=== PATIENT | male | born 1970 | race Caucasian/White ===

== ENCOUNTER 2025-08-22 20:55 | Inpatient (IN) | payer OTHER, SELFPAY ==
--- OUTSIDE RECORDS SUMMARY | 2024-05-20 10:00 | XMS_ITS ---
Author Organization [facility] Address [address] [place] [id number] Care Team Providers Care Mba Intern Name Role Phone Cindy NOGUERA, Jose Primary Care Provider Juan Moody Unavailable [phone] Madhav Shankar Unavailable [phone] REASON FOR VISIT booked in error Encounters Encounter Location Date Provider Diagnosis [address] [address] 05/20/2024 Madhav Shankar Plan Of Treatment No Information Progress Notes * Ryne DUNCANDOB: 0 (54 yo M)Acc No.[id number]:05/20/2024 Progress Note Patient: Ryne RANGEL Provider: Alisha Shankar DPM :1970 A ge:53 Y S ex:Male Date:05/20/2024 Address:[address] [place], [place] [id number] Pcp:Jose White MD Subjective: * Chief Complaints: * 1 . Booked in error. * Medical History: Objective: * Vitals: Assessment: Plan: * Treatment: * Images: * The named appointment provid er may or may not be the originator of this progress note, and it is not deemed complete until electronically signed by the appointment provider. Sign off status: Pending * Provider: Alisha Shankar DPM Date: 0 05/20/2024 Generated for Shiva veloz/Barbara/eTransmitting on: 1 10:45 PM EDT
[2025-08-22] VITALS (14 sets, daily range): BP systolic 117–154; BP diastolic 44–67; PULSE 83–94; RESP 16–91; TEMP 37.8; O2SAT 89–99; BMI 19.5
--- NOTE | 2025-08-22 | ECG_ITS ---
Test Reason : shortness of breath Blood Pressure : */* mmHG Vent. Rate : 87 BPM Atrial Rate : 87 BPM P-R Int : 184 ms QRS Dur : 108 ms QT Int : 390 ms P-R-T Axes : 58 -33 126 degrees QTcB Int : 469 ms Sinus rhythm with frequent Premature ventricular complexes Left axis deviation Left ventricular hypertrophy ( Alexys product , Romhilt-Medina ) ST & T wave abnormality, consider lateral ischemia Abnormal ECG No previous ECGs available Referred By: Generic ED Physician Electronically Signed By: CARLOS A GRESHAM MD
--- NOTE | ~2025-08-22 | XR_ITS ---
CLINICAL HISTORY: shortness of breath 1 view chest x-ray Comparison: None provided Findings: The lungs are clear. Normal size heart. No acute fracture. Post sternotomy changes. IMPRESSION: 1. No acute findings. This document has been electronically signed by: Hilton Fonseca MD, PHD on 08/22/2025 23:43:12
--- NOTE | ~2025-08-22 | CT_ITS ---
CLINICAL HISTORY: hypoxic, possible aspiration CT chest without contrast Comparison: None provided Findings: Mild respiratory motion artifact degrades some of the provided images. Atherosclerotic vascular calcifications are present. Heart is mildly enlarged. The visualized thyroid and mediastinum are unremarkable. Pulmonary consolidation or infiltrates are present in the lung bases, [id number]. The visualized upper abdomen is unremarkable. The bones are intact. IMPRESSION: Possible aspiration with basilar pulmonary consolidations or infiltrates, [id number]-right. This document has been electronically signed by: Hilton Fonseca MD, PHD on 08/23/2025 04:51:53
--- NOTE | ~2025-08-22 | CT_ITS ---
CLINICAL HISTORY: possible abd pain? non-verbal CT abdomen and pelvis without contrast Comparison: None provided Findings: Basilar areas of pulmonary consolidation or infiltrate are present, [id number]-right. The heart is mildly enlarged. No focal hepatic lesion. Gallbladder is unremarkable. Pancreas and spleen are within normal limits. The adrenal glands are unremarkable. Moderate right and mild left hydronephrosis are present. Small nonobstructing renal calculi are present bilaterally. No bowel obstruction, pneumoperitoneum, or pneumatosis. Atherosclerotic vascular calcifications are present. Fat stranding or inflammatory changes are noted in the right lower quadrant. Visualized appendix is normal. Urinary bladder wall is thickened and there is adjacent fat stranding or inflammatory change. There is gas within the nondependent urinary bladder. No acute fracture. IMPRESSION: 1. Moderate right and mild left hydronephrosis with urinary bladder wall thickening, possible cystitis. Gas within the nondependent urinary bladder can be seen in the setting of recent prior instrumentation/catheterization or gas-forming infection. 2. Fat stranding or inflammatory changes in the right lower quadrant, possible focal colitis or inflammatory bowel disease. 3. Dependent pulmonary consolidations or infiltrates, [id number]-right. This document has been electronically signed by: Hilton Fonseca MD, PHD on 08/23/2025 04:45:11
--- NOTE | 2025-08-22 21:34 | ED_ITS ---
HPI - SOB/Dyspnea General Chief Complaint: Dyspnea Stated Complaint: Failure to thrive on NRB bp 128/66 Time Seen by Provider: 08/22/25 21:20 Source: EMS Mode of arrival: EMS Limitations: altered mental status History of Present Illness ED Provider: Dr. Nimo Clark HPI Narrative: Patient comes to the emergency room from [facility]. According to EMS, the staff reported that patient has been more lethargic than usual, patient is saturating in the low 80s which is new for the patient. Patient is not oxygen dependent. EMS reports that the staff said that the patient has been lethargic and has not been taking any of his medications. Patient wakes up to sternal rub, mumbles and goes back to sleep. Unable to give any significant history. It is unclear what patient's mental status baseline is Related Data Allergies Allergy/AdvReac Type Severity Reaction Status Date / Time No Known Allergies Allergy Verified 08/22/25 21:11 Review of Systems 2 Review of Systems: Yes Unobtainable due to mental condition and Unobtainable due to mental status PMFSH Past Medical History Medical History Heart failure Cognitive communication deficit Hx of emt intermediate use of blood thinners Atrial fibrillation H/O: HTN (hypertension) CKD (chronic kidney disease) Wernicke encephalopathy Alcohol abuse Diabetes mellitus type 2 in nonobese Surgical History (Updated 08/22/25 @ 21:43 by Nimo Clark MD) History of heart bypass surgery Social History Social History Unable to assess alcohol history related to: Unable to respond Smoked in Last 30 Days: No Use of substances other than those prescribed or required for medical reasons: No Advance Directives: Yes Advance Directives on File: Yes Advance Directives Date on File: 08/22/25 Do you have a plan to hurt others: No Plan Physical Exam 2 Exam: Exam: Appearance: Patient is very somnolent, arousable to sternal rub, moans and goes back to sleep Eyes: Pupils equal, round and reactive to light. ENT: Very dry oral mucous, foot stuck in dry oral mucosa and redman Neck: Normal inspection. Neck supple. No lymph nodes noted. No crepitus CVS: Normal heart rate and rhythm. Pulses normal. Normal S1 and S2 Respiratory: No respiratory distress. Breath sounds normal. No Wheezing. No rales Abdomen: Soft and nontender. No rigidity. No distention. Skin: Skin warm and dry. Pale skin color. Normal skin turgor. Extremities: No lower extremity edema. No Lacerations. No Rash Neuro: Unable to participating cranial nerve assessment Psych: calm Vital Signs: Vital Signs: Last Vital Signs Temp 100.1 F 08/22/25 21:02 Pulse 89 08/23/25 02:20 Resp 19 08/23/25 02:20 BP 140/61 H 08/23/25 02:20 Pulse Ox 94 08/23/25 02:20 O2 Del Method Nasal Cannula 08/23/25 02:20 O2 Flow Rate 4 08/23/25 02:20 Oxygen Flow Rate 10 08/22/25 21:02 BMI result Body Mass Index 19.5 Course Course Course Narrative: Patient low sick, fragile, clammy. So far, patient's blood pressure is in the 120s over 53, heart rate 83, oxygen saturation is 99% on a non-rebreather. According to EMS, patient's oxygen saturation was in the low 80s when they picked him up. Patient has foot stuck to his oral mucosa and beers, it is possible the patient may have aspirated Patient is empirically being treated with IV fluids and antibiotics. All of patient's labs and imaging pending Medications Administered Discontinued Medications Generic Name Dose Route Start Last Admin Trade Name Óscarq PRN Reason Stop Dose Admin Albuterol Sulfate 10 mg 08/22/25 22:32 08/22/25 22:50 Albuterol Sulfate (0.083%) 2.5 Mg/3 Ml Vial.Neb INHALE 08/22/25 22:33 10 mg ONCE ONE Administration Dextrose 25 gm 08/22/25 22:32 08/22/25 23:13 Dextrose 50 % 25 Gm/50 Ml Syringe IVPUSH 08/22/25 22:33 25 gm ONCE ONE Administration Sodium Chloride 1,600 mls @ 999 mls/hr 08/22/25 21:35 08/23/25 01:31 Ns IVCONT 08/22/25 23:11 Infused .Q1H37M ONE Infusion Ceftriaxone Sodium 1 gm/ 50 mls @ 100 mls/hr 08/22/25 21:35 08/22/25 22:53 Sodium Chloride IV 08/22/25 22:04 Infused ONCE ONE Infusion Azithromycin 500 mg/ Sodium 250 mls @ 125 mls/hr 08/22/25 21:35 08/23/25 01:31 Chloride IV 08/22/25 23:34 Infused ONCE ONE Infusion Calcium Gluconate 2 gm in 100 mls @ 50 mls/hr 08/22/25 22:32 08/23/25 01:31 Calcium Gluconate IV 08/23/25 00:31 Infused ONCE ONE Infusion Insulin Human Regular 10 unit 08/22/25 22:32 08/22/25 23:12 Insulin Regular, Human 100 Unit/Ml 10 Ml Vial IVPUSH 08/22/25 22:33 10 unit ONCE ONE Administration Sodium Bicarbonate 50 meq 08/22/25 22:32 08/22/25 23:13 Sodium Bicarbonate 8.4% 50 Meq/50 Ml Syringe IVPUSH 08/22/25 22:33 50 meq ONCE ONE Administration Medical Decision Making Medical Decision Making [facility] Narrative: My interpretation of labs: Patient's white blood cell count 12.7, hemoglobin 10.8, hematocrit 34.2, platelets 435 blood gases did not show any significant acute abnormality. Chemistry: Potassium 6.3, creatinine 4.44 patient has history of chronic kidney disease, no previous labs for previous comparison. Patient's lactic acid 3.1, normal magnesium. Normal LFTs. Patient's troponin 56.4 On arrival, patient received IV fluids. Before we got the labs back, patient had already received the above-mentioned fluids, now we know that patient's pro BNP is 7730. Patient does not seem to be fluid overloaded, no lower extremity edema, no edema chest x-ray. My interpretation of EKG: Sinus rhythm, heart rate 87, patient's seems to have peaked T-waves, frequent PVCs, QTC 469 Fully hyperkalemia, patient receiving albuterol neb treatment, calcium gluconate, dextrose D50, insulin 10 units, bicarb Chest x-ray does not show any acute abnormality. After all the above-mentioned medications and IV fluids, patient is now awake, alert. Patient still has oxygen desaturations. CT scan of the chest and abdomen pending. Patient's creatinine is too elevated for a CTA to rule out pulmonary embolism. Patient may need a V/Q scan tomorrow At this time, 01:50, patient's 2nd set of labs shows a lactic acid of 4.0. At this time, sepsis is suspected. Patient already received IV fluids and antibiotics. CT scans pending Potassium improved to 5.0 At this time, 01:55, the patient's nurse was able to obtain urine. Seems to be foul smelling. Patient likely also has a UTI. Urinalysis pending. Patient already received as mentioned above IV fluids and appropriate antibiotics. At 02:36 it was confirmed the patient does have a UTI causing sepsis CT scans of chest abdomen and pelvis pending CT scan of the abdomen shows cystitis and bilateral pneumonia. I discussed the patient with Dr. So, patient being admitted Differential Diagnosis Differential Diagnoses: The differential diagnosis associated with the presentation includes Admission/Observation Consideration of admission/observation: Escalation of care including admission/observation considered Lab Data MDM Lab Attestation statement: I reviewed the patient's lab results. 08/22/25 21:48 08/23/25 00:16 Labs: Lab Results 08/22/25 08/22/25 08/22/25 Range/Units 21:47 21:48 21:49 WBC 12.7 H (4.8-10.8) X10*3/uL RBC 3.78 L (4.60-5.80) X10*6/uL Hgb 10.8 L (14.0-18.0) g/dl Hct 34.2 L (42.0-52.0) % MCV 90.5 (80.0-98.0) fL MCH 28.6 (27.0-33.0) pg MCHC 31.6 (31.0-36.0) g/dl RDW 15.5 (11.0-16.0) % Plt Count 435 H (160-400) X10*3/uL MPV 10.1 (9.4-12.4) fL Immature Gran % (Auto) Cancelled Neut % (Auto) Cancelled Lymph % (Auto) Cancelled [place] % (Auto) Cancelled Eos % (Auto) Cancelled Baso % (Auto) Cancelled Lymph # (Auto) Cancelled [place] # (Auto) Cancelled Eos # (Auto) Cancelled Baso # (Auto) Cancelled Abs Immat Gran (auto) Cancelled Absolute Neuts (auto) Cancelled Absolute Nucleated RBC 0.000 (0.0-0.012) X10*3/uL Nucleated RBC % (auto) 0.0 (0.0-0.2) /100WBC Neutrophils % (Manual) 36 L (45-73) % Band Neutrophils % 33 H (3-5) % Lymphocytes % (Manual) 18 L (20-40) % Atypical Lymphs % (Man) 3 (0-6) % Monocytes % (Manual) 5 (2-11) % Metamyelocytes % 5 % Abs Neuts (Manual) 8.8 H (2.0-8.3) X10*3/uL Lymphocytes # (Manual) 2.3 (1.2-4.9) X10*3/uL Atyp Lymphs # (Manual) 0.4 x10*3/uL Monocytes # (Manual) 0.6 (0.1-1.2) X10*3/uL Metamyelocytes # 0.6 X10*3/uL Toxic Vacuolation PRESENT Platelet Estimate NORMAL (NORMAL) Large Platelets PRESENT Plt Morphology Comment NOTED RBC Morphology NOTED [place] Cells 1+ (0-2) /OIF VBG pH 7.34 (7.32-7.43) VBG pCO2 37 mmHg VBG pO2 41 mmHg VBG HCO3 20 L (22-26) mmol/L VBG O2 Saturation 54.0 % VBG Base Excess -4.1 mmol/L Sodium 140 (135-145) mmol/L Potassium 6.3 H* (3.3-5.1) mmol/L Chloride 108 (96-108) mmol/L Carbon Dioxide 18 L (22-29) mmol/L Anion Gap 20 (12-20) BUN 72 H (9-16) mg/dL Creatinine 4.44 H* (0.5-1.4) mg/dL Estim Creat Clear Calc 14.3 Estimated GFR 14 Random Glucose 185 H (60-115) mg/dL Lactic Acid 3.1 H* (0.5-2.0) mmol/L Lactic Acid F/U @ 2Hr (0.5-2.0) mmol/L Lactic Acid F/U @ 4Hr (0.5-2.0) mmol/L Calcium 9.1 (8.4-10.2) mg/dL Magnesium 2.3 (1.6-2.6) mg/dL Total Bilirubin 0.2 (0.0-1.0) mg/dL Direct Bilirubin < 0.2 (0.0-0.5) mg/dL AST 31 (5-37) U/L ALT 7 (0-40) U/L Alkaline Phosphatase 94 (39-117) U/L Troponin I High Sens 73.6 H (<3.5-35.0) ng/L NT-Pro-B Natriuret Pep (<300) pg/mL Total Protein 7.3 (6.5-8.0) g/dL Albumin 2.7 L (3.5-5.0) g/dL TSH 1.18 (0.32-4.0) uIU/mL Urine Color Urine Appearance Urine pH (5.0-9.0) Ur Specific [place] (1.005-1.025) Urine Protein (Neg-Trace) mg/dL Urine Glucose (UA) (Negative) mg/dL Urine Ketones (Negative) mg/dL Urine Blood (Negative) Urine Nitrite (Negative) Ur Leukocyte Esterase (Negative) Urine RBC (0-2) /HPF Urine WBC (0-5) /HPF Ur Squamous Epith Cells (0-2) /HPF Urine Bacteria (None Seen) Hyaline Casts (0-2) /LPF Influenza Type A (PCR) NEGATIVE (Negative) Influenza Type B (PCR) NEGATIVE (Negative) RSV RNA Qual (PCR) NEGATIVE (Negative) SARS-CoV-2 RNA (RT-PCR) NEGATIVE (Negative) 08/22/25 08/23/25 08/23/25 Range/Units 23:28 00:16 01:20 WBC (4.8-10.8) X10*3/uL RBC (4.60-5.80) X10*6/uL Hgb (14.0-18.0) g/dl Hct (42.0-52.0) % MCV (80.0-98.0) fL MCH (27.0-33.0) pg MCHC (31.0-36.0) g/dl RDW (11.0-16.0) % Plt Count (160-400) X10*3/uL MPV (9.4-12.4) fL Immature Gran % (Auto) Neut % (Auto) Lymph % (Auto) [place] % (Auto) Eos % (Auto) Baso % (Auto) Lymph # (Auto) [place] # (Auto) Eos # (Auto) Baso # (Auto) Abs Immat Gran (auto) Absolute Neuts (auto) Absolute Nucleated RBC (0.0-0.012) X10*3/uL Nucleated RBC % (auto) (0.0-0.2) /100WBC Neutrophils % (Manual) (45-73) % Band Neutrophils % (3-5) % Lymphocytes % (Manual) (20-40) % Atypical Lymphs % (Man) (0-6) % Monocytes % (Manual) (2-11) % Metamyelocytes % % Abs Neuts (Manual) (2.0-8.3) X10*3/uL Lymphocytes # (Manual) (1.2-4.9) X10*3/uL Atyp Lymphs # (Manual) x10*3/uL Monocytes # (Manual) (0.1-1.2) X10*3/uL Metamyelocytes # X10*3/uL Toxic Vacuolation Platelet Estimate (NORMAL) Large Platelets Plt Morphology Comment RBC Morphology [place] Cells /OIF VBG pH (7.32-7.43) VBG pCO2 mmHg VBG pO2 mmHg VBG HCO3 (22-26) mmol/L VBG O2 Saturation % VBG Base Excess mmol/L Sodium 144 (135-145) mmol/L Potassium 5.0 D (3.3-5.1) mmol/L Chloride 113 H (96-108) mmol/L Carbon Dioxide 16 L (22-29) mmol/L Anion Gap 20 (12-20) BUN 72 H (9-16) mg/dL Creatinine 4.22 H* (0.5-1.4) mg/dL Estim Creat Clear Calc 15.0 Estimated GFR 15 Random Glucose 221 H (60-115) mg/dL Lactic Acid (0.5-2.0) mmol/L Lactic Acid F/U @ 2Hr 4.0 H* (0.5-2.0) mmol/L Lactic Acid F/U @ 4Hr (0.5-2.0) mmol/L Calcium 8.4 D (8.4-10.2) mg/dL Magnesium (1.6-2.6) mg/dL Total Bilirubin (0.0-1.0) mg/dL Direct Bilirubin (0.0-0.5) mg/dL AST (5-37) U/L ALT (0-40) U/L Alkaline Phosphatase (39-117) U/L Troponin I High Sens 56.4 H (<3.5-35.0) ng/L NT-Pro-B Natriuret Pep 7730.7 H (<300) pg/mL Total Protein (6.5-8.0) g/dL Albumin (3.5-5.0) g/dL TSH (0.32-4.0) uIU/mL Urine Color Urine Appearance Urine pH (5.0-9.0) Ur Specific [place] (1.005-1.025) Urine Protein (Neg-Trace) mg/dL Urine Glucose (UA) (Negative) mg/dL Urine Ketones (Negative) mg/dL Urine Blood (Negative) Urine Nitrite (Negative) Ur Leukocyte Esterase (Negative) Urine RBC (0-2) /HPF Urine WBC (0-5) /HPF Ur Squamous Epith Cells (0-2) /HPF Urine Bacteria (None Seen) Hyaline Casts (0-2) /LPF Influenza Type A (PCR) (Negative) Influenza Type B (PCR) (Negative) RSV RNA Qual (PCR) (Negative) SARS-CoV-2 RNA (RT-PCR) (Negative) 08/23/25 08/23/25 Range/Units 01:43 03:56 WBC (4.8-10.8) X10*3/uL RBC (4.60-5.80) X10*6/uL Hgb (14.0-18.0) g/dl Hct (42.0-52.0) % MCV (80.0-98.0) fL MCH (27.0-33.0) pg MCHC (31.0-36.0) g/dl RDW (11.0-16.0) % Plt Count (160-400) X10*3/uL MPV (9.4-12.4) fL Immature Gran % (Auto) Neut % (Auto) Lymph % (Auto) [place] % (Auto) Eos % (Auto) Baso % (Auto) Lymph # (Auto) [place] # (Auto) Eos # (Auto) Baso # (Auto) Abs Immat Gran (auto) Absolute Neuts (auto) Absolute Nucleated RBC (0.0-0.012) X10*3/uL Nucleated RBC % (auto) (0.0-0.2) /100WBC Neutrophils % (Manual) (45-73) % Band Neutrophils % (3-5) % Lymphocytes % (Manual) (20-40) % Atypical Lymphs % (Man) (0-6) % Monocytes % (Manual) (2-11) % Metamyelocytes % % Abs Neuts (Manual) (2.0-8.3) X10*3/uL Lymphocytes # (Manual) (1.2-4.9) X10*3/uL Atyp Lymphs # (Manual) x10*3/uL Monocytes # (Manual) (0.1-1.2) X10*3/uL Metamyelocytes # X10*3/uL Toxic Vacuolation Platelet Estimate (NORMAL) Large Platelets Plt Morphology Comment RBC Morphology [place] Cells /OIF VBG pH (7.32-7.43) VBG pCO2 mmHg VBG pO2 mmHg VBG HCO3 (22-26) mmol/L VBG O2 Saturation % VBG Base Excess mmol/L Sodium (135-145) mmol/L Potassium (3.3-5.1) mmol/L Chloride (96-108) mmol/L Carbon Dioxide (22-29) mmol/L Anion Gap (12-20) BUN (9-16) mg/dL Creatinine (0.5-1.4) mg/dL Estim Creat Clear Calc Estimated GFR Random Glucose (60-115) mg/dL Lactic Acid (0.5-2.0) mmol/L Lactic Acid F/U @ 2Hr (0.5-2.0) mmol/L Lactic Acid F/U @ 4Hr 1.4 (0.5-2.0) mmol/L Calcium (8.4-10.2) mg/dL Magnesium (1.6-2.6) mg/dL Total Bilirubin (0.0-1.0) mg/dL Direct Bilirubin (0.0-0.5) mg/dL AST (5-37) U/L ALT (0-40) U/L Alkaline Phosphatase (39-117) U/L Troponin I High Sens (<3.5-35.0) ng/L NT-Pro-B Natriuret Pep (<300) pg/mL Total Protein (6.5-8.0) g/dL Albumin (3.5-5.0) g/dL TSH (0.32-4.0) uIU/mL Urine Color Yellow Urine Appearance Turbid Urine pH 8.0 (5.0-9.0) Ur Specific [place] 1.015 (1.005-1.025) Urine Protein 300 (3+) H (Neg-Trace) mg/dL Urine Glucose (UA) Negative (Negative) mg/dL Urine Ketones Negative (Negative) mg/dL Urine Blood Large (3+) H (Negative) Urine Nitrite Positive H (Negative) Ur Leukocyte Esterase Moderate (2+) H (Negative) Urine RBC 3-5 H (0-2) /HPF Urine WBC >50 H (0-5) /HPF Ur Squamous Epith Cells 3-5 (0-2) /HPF Urine Bacteria 4+ (None Seen) Hyaline Casts 0-2 (0-2) /LPF Influenza Type A (PCR) (Negative) Influenza Type B (PCR) (Negative) RSV RNA Qual (PCR) (Negative) SARS-CoV-2 RNA (RT-PCR) (Negative) Independent Interpretation I performed an independent interpretation of an: EKG, Plain X-Ray and CT Scan Radiology Impression Discussion of test interpretation with radiology: I have reviewed the radiologist's reading. Radiologist Impression: The lungs are clear. Normal size heart. No acute fracture. Post sternotomy changes. IMPRESSION: 1. No acute findings. Basilar areas of pulmonary consolidation or infiltrate are present, [id number]. The heart is mildly enlarged. No focal hepatic lesion. Gallbladder is unremarkable. Pancreas and spleen are within normal limits. The adrenal glands are unremarkable. Moderate right and mild left hydronephrosis are present. Small nonobstructing renal calculi are present bilaterally. No bowel obstruction, pneumoperitoneum, or pneumatosis. Atherosclerotic vascular calcifications are present. Fat stranding or inflammatory changes are noted in the right lower quadrant. Visualized appendix is normal. Urinary bladder wall is thickened and there is adjacent fat stranding or inflammatory change. There is gas within the nondependent urinary bladder. No acute fracture. IMPRESSION: 1. Moderate right and mild left hydronephrosis with urinary bladder wall thickening, possible cystitis. Gas within the nondependent urinary bladder can be seen in the setting of recent prior instrumentation/catheterization or gas-forming infection. 2. Fat stranding or inflammatory changes in the right lower quadrant, possible focal colitis or inflammatory bowel disease. 3. Dependent pulmonary consolidations or infiltrates, [id number]-right. Mild respiratory motion artifact degrades some of the provided images. Atherosclerotic vascular calcifications are present. Heart is mildly enlarged. The visualized thyroid and mediastinum are unremarkable. Pulmonary consolidation or infiltrates are present in the lung bases, [id number]-right. The visualized upper abdomen is unremarkable. The bones are intact. IMPRESSION: Possible aspiration with basilar pulmonary consolidations or infiltrates, [id number]-right. Independent Historian Clinical information obtained from an independent historian. History obtained from or confirmed by: EMS Critical Care Time Critical Care Time Critical Care Time: Yes Total Critical Care Time: 75 Attestation: I have personally provided critical care time. Time includes review of lab data, radiology results, discussion with consultants, and monitoring for potential decompensation. Intervention performed as documented. Discharge Plan Discharge Clinical Impression: Hypoxia, Sepsis, Acute UTI, Pneumonia, Acute hyperkalemia, Acute dehydration Patient Disposition: Admitted As Inpatient Print Language: Unable To Collect
[2025-08-22 22:02] LABS: Hematocrit 34.2 % (42.0-52.0); Hemoglobin 10.8 g/dl (14.0-18.0); Mean Corpuscular HGB Conc 31.6 g/dl (31.0-36.0); Mean Corpuscular Hemoglobin 28.6 pg (27.0-33.0); Mean Corpuscular Volume 90.5 fL (80.0-98.0); NRBC Abs Auto 0.000 X10*3/uL (0.0-0.012); NRBC Pct Auto 0.0 /100WBC (0.0-0.2); Platelet Count 435 X10*3/uL (160-400); Red Blood Count 3.78 X10*6/uL (4.60-5.80); White Blood Count 12.7 X10*3/uL (4.8-10.8)
[2025-08-22 22:12] LABS: VBG HCO3 20 mmol/L (22-26); VBG O2 % Saturation 54.0 %
[2025-08-22 22:13] LABS: Venous Blood Gas Refer to POC result
[2025-08-22 22:25] LABS: Troponin-I High Sensitivity 73.6 ng/L (<3.5-35.0)
[2025-08-22 22:30] LABS: Neutrophils Percent Manual 36 % (45-73)
[2025-08-22 22:32] LABS: Alanine Aminotransferase 7 U/L (0-40); Albumin Level 2.7 g/dL (3.5-5.0); Alkaline Phosphatase 94 U/L (39-117); Anion Gap 20 (12-20); Aspartate Amino Transferase 31 U/L (5-37); Atypical Lymph Absolute Manual 0.4 x10*3/uL; Atypical Lymphs Percent Manual 3 % (0-6); Band Neutrophils Percent 33 % (3-5); Blood Urea Nitrogen 72 mg/dL (9-16); Calcium 9.1 mg/dL (8.4-10.2); Carbon Dioxide 18 mmol/L (22-29); Chloride 108 mmol/L (96-108); Creatinine Clr Calc Pharmacy 14.3; Estimated Glomerular Filt Rate 14; Lymphocytes Absolute Manual 2.3 X10*3/uL (1.2-4.9); Lymphocytes Percent Manual 18 % (20-40); Magnesium 2.3 mg/dL (1.6-2.6); Metamyelocytes Absolute 0.6 X10*3/uL; Metamyelocytes Percent 5 %; Monocytes Absolute Manual 0.6 X10*3/uL (0.1-1.2); Monocytes Percent Manual 5 % (2-11); Neutrophils Absolute Manual 8.8 X10*3/uL (2.0-8.3); Potassium 6.3 mmol/L (3.3-5.1); RBC Morphology NOTED; Sodium 140 mmol/L (135-145); Total Protein 7.3 g/dL (6.5-8.0)
[2025-08-22 22:33] LABS: Burr Cells 1+ (0-2) /OIF; Large Platelet PRESENT
[2025-08-22 22:34] LABS: Toxic Vacuolation PRESENT
--- OUTSIDE RECORDS SUMMARY | 2025-08-22 22:45 | XMS_ITS | Encounter Summary ---
Author Organization [facility] Address [address] [place] [address] Care Team Providers Care System Designer Name Role Phone Linnea Beth MD Primary Care Provider + Encounter Details Date Type Department Care Team (Late st Contact Info) Description 08/20/2025 Lab Requisition [facility] - Main Lab [address] [facility] [place] [address] Linnea Beth MD [address] [address] Type 2 diabetes mellitus with unspecified complications (CMS/HCC V24, CMS/HCC V28); Unspecified atrial fibrillation (CMS/HCC V24, CMS/HCC V28); Chronic kidney disease, unspecified Social History Tobacco Use Types Packs/Day Years Used Date Smoking Tobacco: Every Day Cigarettes Alcohol Use Standard Drinks/Week Comments Not Asked 0 (1 standard drink = 0.6 oz pur e alcohol) Sex and Gender Information Value Date Recorded Sex Assigned at Not on file Legal Sex Male 4:37 AM EST Gender Identity Not on file Sexual Orientation Not on file documented as of this encounter Plan of Treatment Not on file documented as of this encounter Procedures Procedure Name Priority Date/Time Associated Diagnosis Comments COMPLETE BLOOD COUNT Routine 08/20/2025 7:17 AM EDT Type 2 diabetes mellitus with unspecified complications (CMS/HCC V24, CMS/HCC V28) Unspecified atrial fibrillation (CMS/HCC V24, CMS/HCC V28) Chronic kidney disease, unspecified BASIC METABOLIC PANEL Routine 08/20/2025 7:17 AM EDT Type 2 diabetes mellitus with unspecified complications (CMS/HCC V24, CMS/HCC V28) Unspecified atrial fibrillation (CMS/HCC V24, CMS/HCC V28) Chronic kidney disease, unspecified documented in this encounter Results * (ABNORMAL) Basic metabolic panel (08/20/2025 7:17 AM EDT) Sodium 143 133 - 145 mmol/L LAB CHEMISTRY METHOD 08/20/2025 10:40 AM [facility] Potassium 3.9 3.5 - 5.5 mmol/L LAB CHEMISTRY METHOD 08/20/2025 10:40 AM [facility] Chloride 112(H) 96 - 110 mmol/L LAB CHEMISTRY METHOD 08/20/2025 10:40 AM [facility] CO2 24 21 - 32 mmol/L LAB CHEMISTRY METHOD 08/20/2025 10:40 AM [facility] Anion Gap 7 3 - 11 LAB CHEMISTRY METHOD 08/20/2025 10:40 AM [facility] Glucose 151(H) 70 - 100 mg/dL LAB CHEMISTRY METHOD 08/20/2025 10:40 AM [facility] BUN 27(H) 5 - 25 mg/dL LAB CHEMISTRY METHOD 08/20/2025 10:40 AM [facility] Creatinine 1.17 0.70 - 1.30 mg/dL LAB CHEMISTRY METHOD 08/20/2025 10:40 AM [facility] eGFR 74 >=60 mL/min/1. 73m2 LAB CHEMISTRY METHOD 08/20/2025 10:40 AM [facility] Comment:Calculation based on the Chronic Kidney Disease Epidemiology Collaboration (CKD-EPI) equation refit without adjustment for race. BUN/Creatinine Ratio 23.1 LAB CHEMISTRY METHOD 08/20/2025 10:40 AM [facility] Calcium 8.3(L) 8.5 - 10.5 mg/dL LAB CHEMISTRY METHOD 08/20/2025 10:40 AM [facility] Blood Venous blood specimen / Unknown Venipuncture / Unknown 08/20/2025 7:17 AM EDT 08/20/2025 8:57 AM EDT us Linnea Beth MD LAB BLOOD ORDERABLES Fin al Result [facility] [address] [place] [address], * (ABNORMAL) Complete blood count (08/20/2025 7:17 AM EDT) [facility] WBC 8.3 4.8 - 10.8 K/mcL LAB HEMETOLOGY METHOD 08/20/2025 9:14 AM EDT [facility] RBC 3.10(L) 4.50 - 5.50 M/mcL LAB HEMETOLOGY METHOD 08/20/2025 9:14 AM [facility] Hemoglobin 8.8(L) 13.5 - 17.5 g/dL LAB HEMETOLOGY METHOD 08/20/2025 9:14 AM [facility] Hematocrit 29.0(L) 42.0 - 54.0 % LAB HEMETOLOGY METHOD 08/20/2025 9:14 AM [facility] MCV 92.7 79.0 - 98.0 FL LAB HEMETOLOGY METHOD 08/20/2025 9:14 AM [facility] MCH 28.1 27.0 - 32.0 pcg LAB HEMETOLOGY METHOD 08/20/2025 9:14 AM [facility] MCHC 30.3(L) 32.0 - 37.0 g/dL LAB HEMETOLOGY METHOD 08/20/2025 9:14 AM [facility] RDW 14.9 11.0 - 15.0 % LAB HEMETOLOGY METHOD 08/20/2025 9:14 AM [facility] Platelets 343 130 - 400 K/mcL LAB HEMETOLOGY METHOD 08/20/2025 9:14 AM EDT [facility] MPV 10.3 7.0 - 11.0 FL LAB HEMETOLOGY METHOD 08/20/2025 9:14 AM EDT [facility] NRBC 0.0 <1.0 % LAB HEMETOLOG METHOD 08/20/2025 9:14 AM EDT [facility] NRBC Absolute 0.00 <0.10 K/mcL LAB HEMETOLOGY METHOD 08/20/2025 9:14 AM EDT [facility] Blood Venous blood specimen / Unknown Venipuncture / Unknown 08/20/2025 7:17 AM EDT 08/20/2025 8:57 AM EDT us Linnea Beth MD LAB BLOOD ORDERABLES Fin al Result [facility] [address] [place] [address], documented in this encounter Visit Diagnoses Diagnosis Type 2 diabetes mellitus with unspecified complications (CMS/HCC V24, CMS/HCC V28) Unspecified atrial fibrillation (CMS/HCC V24, CMS/HCC V28) Chronic kidney disease, unspecified documented in this encounter Care Teams System Designer Relationship Specialty Start Date End Date Linnea Beth MD [address] [place] [id number] PCP - General Family Medicine 07/16/25 documented as of this encounter
--- OUTSIDE RECORDS SUMMARY | 2025-08-22 22:45 | XMS_ITS | Clinical Summary ---
Author Organization [address] [facility] Address [address] [place] [address] Phone Care Team Providers Care Shake Cutter Name Role Phone Linnea Beth MD Primary Care Provider + Encounters Date Type Department Care Team Description 08/20/2025 Lab Requisition [facility] [address] [place] [phone] Linnea Beth MD Type 2 diabetes mellitus with unspecified complications (CMS/HCC V24, CMS/HCC V28); Unspecified atrial fibrillation (CMS/HCC V24, CMS/HCC V28); Chronic kidney disease, unspecified 08/06/2025 Lab Requisition [facility] [address] [place] [phone] Linnea Beth MD Anemia, unspecified 07/24/2025 Lab Requisition [facility] [address] [place] [phone] Linnea Beth MD Type 2 diabetes mellitus with hyperglycemia (CMS/HCC V24, CMS/HCC V28) 07/14/2025 Lab Requisition [facility] [address] [place] [phone] Linnea Beth MD Type 2 diabetes mellitus with hyperglycemia (CMS/HCC V24, CMS/HCC V28); Chronic kidney disease, unspecified; Essential (primary) hypertension; Osteoarthritis of first carpometacarpal joint, unspecified from Last 3 Months Surgical History Surgery Date Site/Laterality Comments HERNIA REPAIR PROCEDURE: HISTORICAL HERNIA REPAIR/ING Medical History Medical History Date Comments Type II or unspecified type diabetes mellitus with unspecified complication, not stated as uncontrolled DX:Type II or unspecified t ype diabetes mellitus with unspecified complication, not stated as uncontrolled Other and unspecified hyperlipidemia DX:Other and unspecified hyperlipidemia Dyspepsia and other specifie d disorders of function of stomach DX:Dyspepsia and other speci fied disorders of function of stomach Family History Medical History Relation Name Comments Diabetes Mother Relation Name Status Comments Mother Social History Tobacco Use Types Packs/Day Years Used Date Smoking Tobacco: Every Day Cigarettes Alcohol Use Standard Drinks/Week Comments Not Asked 0 (1 standard drink = 0.6 oz pur e alcohol) Sex and Gender Information Value Date Recorded Sex Assigned at Not on file Legal Sex Male 4:37 AM EST Gender Identity Not on file Sexual Orientation Not on file Obstetrics History Plan of Treatment Health Maintenance Due Date Last Done Comments Colorectal Cancer Screening: Colonoscopy 1970 Diabetes: Annual Foot Exam 1980 Diabetes: Annual Retina Eye Exam 1980 DTaP,Tdap,and Td Vaccines (1 - Tdap) 1989 Hepatitis B Vaccines (1 of 3 - 19+ 3-dose series) 1989 Pneumococcal Vaccine: 50+ Years (2 of 2 - PCV) 04/07/2003 04/07/2002 Zoster Vaccines (1 of 2) 2020 Cholesterol Screening (Lipid Panel) 05/20/2024 Diabetes: Annual Urine Albumin-Creatinine Ratio (uACR) 05/20/2024 Diabetes: Blood Sugar Control Test (HGBA1C) 05/20/2024 HIV Screening 05/20/2024 Hepatitis C Screening 05/20/2024 Medicare Annual Wellness Visit 05/20/2024 Social Influencers of Health Screening 05/20/2024 Depression Screening 10/29/2024 COVID-19 Vaccine ( season) 2025 Influenza Vaccine (#1) 2025 Diabetes: Annual GFR (Glomerular Filtration Rate) 08/20/2026 08/20/2025, 08/06/2025, 07/24/2025, Additional history exists Hypertension/CHF/CAD Annual BMP Blood Test 08/20/2026 08/20/2025, 08/06/2025, 07/24/2025, Additional history exists RSV Immunization Adult Patients (1 - 1-dose 75+ series) 2045 HIB Vaccines Aged Out No longer eligi ble based on patient's age to complete this topic HPV Vaccines Aged Out No longer eligi ble based on patient's age to complete this topic Hepatitis A Vaccines Aged Out No long er eligible based on patient's age to complete this topic IPV Vaccines Aged Out No longer eligi ble based on patient's age to complete this topic MMR Vaccines Aged Out No longer eligi ble based on patient's age to complete this topic Meningococcal ACWY Vaccine Aged Out N o longer eligible based on patient's age to complete this topic Meningococcal B Vaccine Aged Out No l onger eligible based on patient's age to complete this topic RSV Immunization Patients Under 20 months Aged Out No longer eligible based on patient's age to complete this topic Varicella Vaccines Aged Out No longer eligible based on patient's age to complete this topic Procedures Procedure Name Priority Date/Time Associated Diagnosis Comments BASIC METABOLIC PANEL Routine 08/20/2025 7:17 AM EDT Type 2 diabetes mellitus with unspecified complications (CMS/HCC V24, CMS/HCC V28) Unspecified atrial fibrillation (CMS/HCC V24, CMS/HCC V28) Chronic kidney disease, unspecified COMPLETE BLOOD COUNT Routine 08/20/2025 7:17 AM EDT Type 2 diabetes mellitus with unspecified complications (CMS/HCC V24, CMS/HCC V28) Unspecified atrial fibrillation (CMS/HCC V24, CMS/HCC V28) Chronic kidney disease, unspecified BASIC METABOLIC PANEL Routine 08/06/2025 6:03 AM EDT Anemia, unspecified COMPLETE BLOOD COUNT Routine 08/06/2025 6:03 AM EDT Anemia, unspecified CBC WITH AUTO DIFFERENTIAL Routine 07/24/2025 4:58 AM EDT Type 2 diabetes mellitus with hyperglycemia (CMS/HCC V24, CMS/HCC V28) LIPASE Routine 07/24/2025 4:58 AM EDT Type 2 diabetes mellitus with hyperglycemia (CMS/HCC V24, CMS/HCC V28) AMYLASE Routine 07/24/2025 4:58 AM EDT Type 2 diabetes mellitus with hyperglycemia (CMS/HCC V24, CMS/HCC V28) COMPREHENSIVE METABOLIC PANEL Routine 07/24/2025 4:58 AM EDT Type 2 diabetes mellitus with hyperglycemia ([facility]/HCC V24, CMS/HCC V28) CBC AND DIFFERENTIAL Routine 07/24/2025 4:58 AM EDT Type 2 diabetes mellitus with hyperglycemia (CMS/HCC V24, CMS/HCC V28) BASIC METABOLIC PANEL Routine 07/14/2025 5:11 AM EDT Type 2 diabetes mellitus with hyperglycemia (CMS/HCC V24, CMS/HCC V28) Chronic kidney disease, unspecified Essential (primary) hypertension Osteoarthritis of first carpometacarpal joint, unspecified COMPLETE BLOOD COUNT Routine 07/14/2025 5:11 AM EDT Type 2 diabetes mellitus with hyperglycemia ([facility]/HCC V24, CMS/HCC V28) Chronic kidney disease, unspecified Essential (primary) hypertension Osteoarthritis of first carpometacarpal joint, unspecified from Last 3 Months Results * (ABNORMAL) Complete blood count (08/20/2025 7:17 AM EDT) Only the most recent of3 resultswithin the time period is included. WBC 8.3 4.8 - 10.8 K/mcL LAB HEMETOLOGY METHOD 08/20/2025 9:14 AM [facility] RBC 3.10(L) 4.50 - 5.50 M/mcL LAB HEMETOLOGY METHOD 08/20/2025 9:14 AM [facility] Hemoglobin 8.8(L) 13.5 - 17.5 g/dL LAB HEMETOLOGY METHOD 08/20/2025 9:14 AM [facility] Hematocrit 29.0(L) 42.0 - 54.0 % LAB HEMETOLOGY METHOD 08/20/2025 9:14 AM [facility] MCV 92.7 79.0 - 98.0 FL LAB HEMETOLOGY METHOD 08/20/2025 9:14 AM EDT [facility] MCH 28.1 27.0 - 32.0 pcg LAB HEMETOLOGY METHOD 08/20/2025 9:14 AM EDT [facility] MCHC 30.3(L) 32.0 - 37.0 g/dL LAB HEMETOLOGY METHOD 08/20/2025 9:14 AM EDT [facility] RDW 14.9 11.0 - 15.0 % LAB HEMETOLOGY METHOD 08/20/2025 9:14 AM EDT [facility] Platelets 343 130 - 400 K/mcL LAB HEMETOLOGY METHOD 08/20/2025 9:14 AM EDT [facility] MPV 10.3 7.0 - 11.0 FL LAB HEMETOLOGY METHOD 08/20/2025 9:14 AM EDT [facility] NRBC 0.0 <1.0 % LAB HEMETOLOGY METHOD 08/20/2025 9:14 AM EDT [facility] NRBC Absolute 0.00 <0.10 K/mcL LAB HEMETOLOGY METHOD 08/20/2025 9:14 AM T [facility] Blood Venous blood specimen / Unknown Venipuncture / Unknown 08/20/2025 7:17 AM EDT 08/20/2025 8:57 AM EDT us Linnea Beth MD LAB BLOOD ORDERABLES Fin al Result [facility] [address] [place] [address], * (ABNORMAL) Basic metabolic panel (08/20/2025 7:17 AM EDT) Only the most recent of3 resultswithin the time period is included. Sodium 143 133 - 145 mmol/L LAB CHEMISTRY METHOD 08/20/2025 10:40 AM [facility] Potassium 3.9 3.5 - 5.5 mmol/L LAB CHEMISTRY METHOD 08/20/2025 10:40 AM [facility] Chloride 112(H) 96 - 110 mmol/L LAB CHEMISTRY METHOD 08/20/2025 10:40 AM [facility] CO2 24 21 - 32 mmol/L LAB CHEMISTRY METHOD 08/20/2025 10:40 AM [facility] Anion Gap 7 3 - 11 LAB CHEMISTRY METHOD 08/20/2025 10:40 AM [facility] Glucose 151(H) 70 - 100 mg/dL LAB CHEMISTRY METHOD 08/20/2025 10:40 AM [facility] BUN 27(H) 5 - 25 mg/dL LAB CHEMISTRY METHOD 08/20/2025 10:40 AM [facility] Creatinine 1.17 0.70 - 1.30 mg/dL LAB CHEMISTRY METHOD 08/20/2025 10:40 AM [facility] eGFR 74 >=60 mL/min/1. 73m2 LAB CHEMISTRY METHOD 08/20/2025 10:40 AM [facility] Comment:Calculation based on the Chronic Kidney Disease Epidemiology Collaboration (CKD-EPI) equation refit without adjustment for race. BUN/Creatinine Ratio 23.1 LAB CHEMISTRY METHOD 08/20/2025 10:40 AM [facility] Calcium 8.3(L) 8.5 - 10.5 mg/dL LAB CHEMISTRY METHOD 08/20/2025 10:40 AM [facility] Blood Venous blood specimen / Unknown Venipuncture / Unknown 08/20/2025 7:17 AM EDT 08/20/2025 8:57 AM EDT us Linnea Beth MD LAB BLOOD ORDERABLES Fin al Result [facility] [address] [place] [address], * (ABNORMAL) CBC auto differential (07/24/2025 4:58 AM EDT) [facility] WBC 9.5 4.8 - 10.8 K/mcL LAB HEMETOLOGY METHOD 07/24/2025 9:51 AM [facility] RBC 3.00(L) 4.50 - 5.50 M/mcL LAB HEMETOLOGY [facility] Hemoglobin 8.6(L) 13.5 - 17.5 g/dL LAB HEMETOLOGY METHOD 07/24/2025 9:51 AM [facility] Hematocrit 27.9(L) 42.0 - 54.0 % LAB HEMETOLOGY METHOD 07/24/2025 9:51 AM [facility] MCV 93.6 79.0 - 98.0 FL LAB HEMETOLOGY METHOD 07/24/2025 9:51 AM [facility] MCH 28.9 27.0 - 32.0 pcg LAB HEMETOLOGY METHOD 07/24/2025 9:51 AM [facility] MCHC 30.8(L) 32.0 - 37.0 g/dL LAB HEMETOLOGY METHOD 07/24/2025 9:51 AM [facility] RDW 15.4(H) 11.0 - 15.0 % LAB HEMETOLOGY METHOD 07/24/2025 9:51 AM [facility] Platelets 499(H) 130 - 400 K/mcL LAB HEMETOLOGY METHOD 07/24/2025 9:51 AM [facility] MPV 9.6 7.0 - 11.0 FL LAB HEMETOLOGY METHOD 07/24/2025 9:51 AM [facility] NRBC 0.0 <1.0 % LAB HEMETOLOGY METHOD 07/24/2025 9:51 AM [facility] NRBC Absolute 0.00 <0.10 K/mcL LAB HEMETOLOGY METHOD 07/24/2025 9:51 AM [facility] Neutrophils Relative 54.8 % LAB HEMETOLOGY METHOD 07/24/2025 9:51 AM [facility] Lymphocytes Relative 27.8 % LAB HEMETOLOGY METHOD 07/24/2025 9:51 AM [facility] Monocytes Relative 9.2 % LAB HEMETOLOGY METHOD 07/24/2025 9:51 AM [facility] Eosinophils Relative 5.6 % LAB HEMETOLOGY METHOD 07/24/2025 9:51 AM [facility] Basophils Relative 1.5 % LAB HEMETOLOGY METHOD 07/24/2025 9:51 AM [facility] Immature Granulocytes Relative 1.1 % LAB HEMETOLOGY METHOD 07/24/2025 9:51 AM [facility] Neutrophils Absolute 5.21 1.50 - 7.00 K/mcL LAB HEMETOLOGY METHOD 07/24/2025 9:51 AM [facility] Lymphocytes Absolute 2.64 1.00 - 5.00 K/mcL LAB HEMETOLOGY METHOD 07/24/2025 9:51 AM [facility] Monocytes Absolute 0.87 0.20 - 1.00 K/mcL LAB HEMETOLOGY METHOD 07/24/2025 9:51 AM [facility] Eosinophils Absolute 0.53(H) 0.00 - 0.50 K/mcL LAB HEMETOLOGY METHOD 07/24/2025 9:51 AM [facility] Basophils Absolute 0.14 0.00 - 0.20 K/mcL LAB HEMETOLOGY METHOD 07/24/2025 9:51 AM [facility] Immature Granulocytes Absolute 0.10(H) 0.00 - 0.03 K/mcL LAB HEMETOLOGY METHOD 07/24/2025 9:51 AM EDT [facility] Blood Venous blood specimen / Unknown Venipuncture / Unknown 07/24/2025 4:58 AM EDT 07/24/2025 9:20 AM EDT Linnea Beth MD LAB BLOOD ORDERABLES Fin al Result Performing Organization Address City/[facility]/ZIP Co de Phone Number [facility] [address] [place] [address], [place] [phone] * Lipase (07/24/2025 4:58 AM EDT) Lipase 43 13 - 75 unit/L LAB CHEMISTRY METHOD 07/24/2025 10:23 AM EDT [facility] Blood Venous blood specimen / Unknown Venipuncture / Unknown 07/24/2025 4:58 AM EDT 07/24/2025 9:20 AM EDT Linnea Beth MD LAB BLOOD ORDERABLES Fin al Result Performing Organization Address [facility]/ZIP Co de Phone Number [facility] [address] [place] [address], [place] [phone] * Amylase (07/24/2025 4:58 AM EDT) Amylase 47 25 - 115 unit/L LAB CHEMISTRY METHOD 07/24/2025 10:23 AM EDT [facility] Blood Venous blood specimen / Unknown Venipuncture / Unknown 07/24/2025 4:58 AM EDT 07/24/2025 9:20 AM EDT Linnea Beth MD LAB BLOOD ORDERABLES Fin al Result [facility] [address] [place] [address], * (ABNORMAL) Comprehensive metabolic panel (07/24/2025 4:58 AM EDT) Sodium 144 133 - 145 mmol/L LAB CHEMISTRY METHOD 07/24/2025 10:40 AM [facility] Potassium 4.1 3.5 - 5.5 mmol/L LAB CHEMISTRY METHOD 07/24/2025 10:40 AM [facility] Chloride 113(H) 96 - 110 mmol/L LAB CHEMISTRY METHOD 07/24/2025 10:40 AM [facility] CO2 27 21 - 32 mmol/L LAB CHEMISTRY METHOD 07/24/2025 10:40 AM [facility] Anion Gap 4 3 - 11 LAB CHEMISTRY METHOD 07/24/2025 10:40 AM [facility] Glucose 118(H) 70 - 100 mg/dL LAB CHEMISTRY METHOD 07/24/2025 10:40 AM [facility] BUN 35(H) 5 - 25 mg/dL LAB CHEMISTRY METHOD 07/24/2025 10:40 AM [facility] Comment:Results verified by repeat testing Creatinine 0.94 0.70 - 1.30 mg/dL LAB CHEMISTRY METHOD 07/24/2025 10:40 AM [facility] eGFR 96 >=60 mL/min/1. 73m2 LAB CHEMISTRY METHOD 07/24/2025 10:40 AM [facility] Comment:Calculation based on the Chronic Kidney Disease Epidemiology Collaboration (CKD-EPI) equation refit without adjustment for race. BUN/Creatinine Ratio 37.2 LAB CHEMISTRY METHOD 07/24/2025 10:40 AM [facility] Calcium 8.0(L) 8.5 - 10.5 mg/dL LAB CHEMISTRY METHOD 07/24/2025 10:40 AM EDT [facility] AST (SGOT) 17 10 - 42 unit/L LAB CHEMISTRY METHOD 07/24/2025 10:40 AM EDT [facility] ALT (SGPT) 21 10 - 60 unit/L LAB CHEMISTRY METHOD 07/24/2025 10:40 AM EDT [facility] Alkaline Phosphatase 120 42 - 121 unit/L LAB CHEMISTRY METHOD 07/24/2025 10:40 AM EDT [facility] Total Protein 5.0(L) 6.0 - 8.0 g/dL LAB CHEMISTRY METHOD 07/24/2025 10:40 AM EDT [facility] Albumin 1.7(L) 3.2 - 5.0 g/dL LAB CHEMISTRY METHOD 07/24/2025 10:40 AM T [facility] Comment:Results verified by repeat testing Total Bilirubin 0.1 0.0 - 1.4 mg/dL LAB CHEMISTRY METHOD 07/24/2025 10:40 AM EDT [facility] Comment:Results verified by repeat testing Blood Venous blood specimen / Unknown Venipuncture / Unknown 07/24/2025 4:58 AM EDT 07/24/2025 9:20 AM EDT us Linnea Beth MD LAB BLOOD ORDERABLES Fin al Result [facility] [address] [place] [address], from Last [address] [place] [address] MEDICARE Member Subscriber Plan / Payer (Ef fective 2024-Present) Name:OUMAR DUNCAN Relation to Subscriber:Self Name:Oumar Duncan Payer ID:[id number] Group ID:[id number] Type:Not on file Address: [facility] [address] [id number] Care Teams Shake Cutter Relationship Specialty Start Date End Date Linnea Beth MD [address] [address] PCP - General Family Medicine 07/16/25
--- OUTSIDE RECORDS SUMMARY | 2025-08-22 22:45 | XMS_ITS | Encounter Summary ---
Author Organization [facility] Address [address] [place] [address] Encounters * CPT with Tez Jones at [email or web address] on 2025-04-30 Hx of uncontrolled diabetes. hasn't seen pcp in over a year. Failing to thrive. Pt reported to nurse that he has not seen pcp in over a year. Pt is urinary incontinent, is suspecting an infection in his penis and also has uncontrolled diabetes { reasonForRequest : Pt reported to nurse that he has not seen pcp in over a year. Pt is urinary incontinent, is suspecting an infection in his penis and also has uncontrolled diabetes", patientReports : Painful urination; Painful urination with or without fever", denies :[ Unable to void greater than 5 hours , Erection that will not go away after 2 hours , Fall or trauma that results in urinary incontinence in the setting of pain , Fall or injury that results in incontinence in the absence of pain ,"Lower back pain either unilateral or bilateral, unable to void, painful urination -hematuria , Frequent and increased urination with flank pain , Inability to fully empty bladder"], chiefComplaints : Urinary Symptoms , pmh : Hypertension, Congestive Heart Failure, Diabetes Mellitus Type 2 , allergies : No Known Drug A llergies , otherAllergies : , painAssessment : ,&quot ;visitOutcome : , additionalComments : 54 y.o male complains of Urinary Symptoms\nCaseworker called for request.\nPatient is poor historian unable to get info for full triage. \nPatient complaining about infection on or in his penis complaints of pain and burning whenurinating patient is incontinent of urine at times. \nhas not seen PCP in over a year. \nOnly has lantus in house and no working glucometer \nrequesting [facility] visit to be evaluated\n\nI provided information on the mobile health provider response time and advised the patient and/or caregiver to monitor reported signs and symptoms. I discussed the warning signs of when to seek emergency care. } Dispatched to above address for UTI symptoms. On arrival patient 54 y/o M, found sitting in chair, AOX4, airway patent, speaking in full sentences, good color, in no apparent distress. Patient statesfor a month or more now he believes he has some kind of urinary infection, states he has a white discharge and has been incontinent of urine several times. Patients vital signs checked. Secondary asse ssment, pupils PERRL, airway patent, no JVD, trachea midline, equal chest rise and fall, lungs clear all snider, abdomen soft non tender, no signs of trauma, good radial pulse, skin pink warm and dry. Patient further reports he has not seen his PCP in over a year, does not have a working glucometerand has been taking his Lantus based on his last hospitalization. Patients BGL checked, read HI on glucometer. [facility] contacted, spoke with Dr. Medina, advised of patient complaints, exam findings. [facility] ordered Chem8 and urine culture/ dip stick. Lab draw preformed, Chem 8 checked, results uploaded. Urine sample obtained via clean catch. Sample taken for culture. Dip stick checked, results uploaded. [facility] recommends transport to ER for further evaluation and management of hyperglycemia. Patient does not agree with this plan, states he will go later but not now, asked TN8 to leave. Patient has capacity, is AOX4 and understands all risks of refusing care. Patient declined to sign refusal form. [facility] advised. SC8 clear. EOR. ORAL_MEDICATION, EKG, POC_BLOODWORK, GLUCOSE Written by Tez Jones on 2025-04-30
--- OUTSIDE RECORDS SUMMARY | 2025-08-22 22:45 | XMS_ITS | Continuity of Care Document ---
Author Name Tez Jones Address [address] [place] [id number] Organization Unknown Address [address] [place] [address] Medications No known medications Problems No known problems
--- OUTSIDE RECORDS SUMMARY | 2025-08-22 22:45 | XMS_ITS | Encounter Summary ---
Author Organization [employer] Address [address] [place] [address] Care Team Providers Care Materials Tech Name Role Phone Linnea Beth MD Primary Care Provider + Encounter Details Date Type Department Care Team (Late st Contact Info) Description 08/06/2025 Lab Requisition [facility] - Main Lab [address] [facility] [place] [address] Linnea Beth MD [address] [address] Anemia, unspecified Social History Tobacco Use Types Packs/Day [...] Associated Diagnosis Comments COMPLETE BLOOD COUNT Routine 08/06/2025 6:03 AM EDT Anemia, unspecified BASIC METABOLIC PANEL Routine 08/06/2025 6:03 AM EDT Anemia, unspecified documented in this encounter Results * (ABNORMAL) Basic metabolic panel (08/06/2025 6:03 AM EDT) Sodium 142 133 - 145 mmol/L LAB CHEMISTRY METHOD 08/06/2025 11:15 AM EDT [facility] Potassium 4.3 3.5 - 5.5 mmol/L LAB CHEMISTRY METHOD 08/06/2025 11:15 AM EDT [facility] Chloride 110 96 - 110 mmol/L LAB CHEMISTRY METHOD 08/06/2025 11:15 AM [facility] CO2 26 21 - 32 mmol/L LAB CHEMISTRY METHOD 08/06/2025 11:15 AM [facility] Anion Gap 6 3 - 11 LAB CHEMISTRY METHOD 08/06/2025 11:15 AM [facility] Glucose 299(H) 70 - 100 mg/dL LAB CHEMISTRY METHOD 08/06/2025 11:15 AM [facility] BUN 25 5 - 25 mg/dL LAB CHEMISTRY METHOD 08/06/2025 11:15 AM [facility] Creatinine 0.98 0.70 - 1.30 mg/dL LAB CHEMISTRY METHOD 08/06/2025 11:15 AM [facility] eGFR 92 >=60 mL/min/1. 73m2 LAB CHEMISTRY METHOD 08/06/2025 11:15 AM [facility] Comment:Calculation based on the Chronic Kidney Disease Epidemiology Collaboration (CKD-EPI) equation refit without adjustment for race. BUN/Creatinine Ratio 25.5 LAB CHEMISTRY METHOD 08/06/2025 11:15 AM [facility] Calcium 8.2(L) 8.5 - 10.5 mg/dL LAB CHEMISTRY METHOD 08/06/2025 11:15 AM [facility] Blood Venous blood specimen / Unknown Venipuncture / Unknown 08/06/2025 6:03 AM EDT 08/06/2025 9:51 AM EDT us Linnea Beth MD LAB BLOOD ORDERABLES Fin al Result [facility] [address] [place] [address], * (ABNORMAL) Complete blood count (08/06/2025 6:03 AM EDT) WBC 9.4 4.8 - 10.8 K/[facility] LAB HEMETOLOGY METHOD 08/06/2025 10:29 AM [facility] RBC 3.10(L) 4.50 - 5.50 M/[facility] LAB HEMETOLOGY METHOD 08/06/2025 10:29 AM [facility] Hemoglobin 8.8(L) 13.5 - 17.5 g/dL LAB HEMETOLOGY METHOD 08/06/2025 10:29 AM [facility] Hematocrit 28.9(L) 42.0 - 54.0 % LAB HEMETOLOGY METHOD 08/06/2025 10:29 AM [facility] MCV 92.9 79.0 - 98.0 FL LAB HEMETOLOGY METHOD 08/06/2025 10:29 AM [facility] MCH 28.3 27.0 - 32.0 pcg LAB HEMETOLOGY METHOD 08/06/2025 10:29 AM [facility] MCHC 30.4(L) 32.0 - 37.0 g/dL LAB HEMETOLOGY METHOD 08/06/2025 10:29 AM [facility] RDW 15.2(H) 11.0 - 15.0 % LAB HEMETOLOGY METHOD 08/06/2025 10:29 AM [facility] Platelets 380 130 - 400 K/[facility] LAB HEMETOLOGY METHOD 08/06/2025 10:29 AM [facility] MPV 10.3 7.0 - 11.0 FL LAB HEMETOLOGY METHOD 08/06/2025 10:29 AM [facility] NRBC 0.0 <1.0 % LAB HEMETOLOGY METHOD 08/06/2025 10:29 AM [facility] NRBC Absolute 0.00 <0.10 K/[facility] LAB HEMETOLOGY METHOD 08/06/2025 10:29 AM EDT [facility] Blood Venous blood specimen / Unknown Venipuncture / Unknown 08/06/2025 6:03 AM EDT 08/06/2025 9:51 AM EDT us Linnea Beth MD LAB BLOOD ORDERABLES Fin al Result [facility] [address] [place] [address], documented in this encounter Visit Diagnoses Diagnosis Anemia, unspecified documented in this encounter Care Teams Materials Tech Relationship Specialty Start Date End Date Linnea Beth MD [address] [place] [id number] PCP - General Family Medicine 07/16/25 documented as of this encounter
--- OUTSIDE RECORDS SUMMARY | 2025-08-22 22:46 | XMS_ITS | Patient Health Record ---
Author Organization [facility] Address [address] [place] [address] Care Team Providers Care Broadband Engineer Name Role Phone Elder Linnea NOGUERA Primary Care Provider Samuel Romano Unavailable [phone] Allergies Allergen (clinical drug ingredient) Drug/Non Drug Allergy documented on EMR Reaction Allergy Type Onset Date Status No Known Food Allergy Unknown Drug Allergy Active No Known Drug Allergy Unknown Drug Allergy Active Reason For Referral No Information Medications Medication SIG (Take, Route, Frequency, Duration) Notes Start Date End Date Status Multivitamin - 1 tablet Orally Once a day Unknown Gabapentin 300 MG 1 capsule Orally 3 t imes a day Unknown Lantus 100 UNIT/ML 8 units Subcutaneous daily Unknown Folic Acid 1 MG 1 tablet Orally Once a day Unknown Tamsulosin HCl 0.4 MG 1 capsule Orally O nce a day Unknown Atorvastatin Calcium 80 MG 1 tablet Oral ly Once a day Unknown Ferrous Sulfate 325 (65 Fe) MG 1 tablet Orally daily Unknow n Aspirin 81 MG 1 tablet Orally Once a day Unknown Eliquis 5 MG 1 tablet Orally twic e a day Unknown amLODIPine Besylate 5 MG 1 tablet Orally Once a day Unknown Lidocaine 5 % 1 patch remove after 12 hours Externally Once a day Unknown Tylenol 325 MG 3 tablets as needed Orally every 6 hrs Unknown Vitamin B1 100 MG 1 tablet Orally twic e a day Unknown Pantoprazole Sodium 40 MG 1 tablet 1/2 t o 1 hour before morning meal Orally Once a day Unknown Social History Household Question Answer Notes Marital status: Problems Problem Type SNOMED Code ICD Code Onset Dates Problem Status W/U Status Risk Notes Problem Hyperglycemia due to type 2 diabetes mellitus (095253386273687) Type 2 diabetes mellitus with hyperglycemia (E11.65) Active confirmed Problem Wernicke's encephalopathy (27789579) Wernicke's encephalopathy (E51.2) Active confirmed Problem Essential hypertension (12781272) Essential (primary) hypertension (I10) Active confirmed Problem Atherosclerotic heart disease of [place] coronary artery without angina pectoris (743996863311726) Atherosclerotic heart disease of [place] coronary artery without angina pectoris (I25.10) Active confirmed Problem Atrial fibrillation (28871074) Unspecified atrial fibrillation (I48.91) Active confirmed Problem Heart failure (89894879) Heart failure, unspecified (I50.9) Active confirmed Problem Gastro-esophageal reflux disease without esophagitis (392315989) Gastro-esophageal reflux disease without esophagitis (K21.9) Active confirmed Problem Pressure injury of sacral region of back stage II (disorder) (68641657472116) Pressure ulcer of sacral region, stage 2 (L89.152) Active confirmed Problem Pressure injury of sacral region of back (disorder) (904401671) Pressure ulcer of sacral region, unspecified stage (L89.159) Active confirmed Problem Chronic kidney disease (330044407) Chronic kidney disease, unspecified (N18.9) Active confirmed Problem Adult failure to thrive syndrome (398818524) Adult failure to thrive (R62.7) Active confirmed Problem Long-term current use of insulin (656635474) terminal clerk (current) use of insulin (Z79.4) Active confirmed Problem Amputated big toe (946501384) Acquired absence of right great toe (Z89.411) Active confirmed Encounters Encounter Location Date Provider Diagnosis [facility] [address] [place], [place] 07/16/2025 Samuel Waien Pressure ulcer of [facility] region, stage 2 L89.152 ; Type 2 diabetes mellitus with hyperglycemia E11.65 ; Wernicke's encephalopathy E51.2 ; Essential (primary) hypertension I10 ; Unspecified atrial fibrillation I48.91 ; Adult failure to thrive R62.7 and Acquired absence of right great toe Z89.411 [facility] [address] [place] [address] 07/23/2025 Samuel Waien Pressure ulcer of [facility], stage 2 L89.152 ; Type 2 diabetes mellitus with hyperglycemia E11.65 ; Wernicke's encephalopathy E51.2 ; Essential (primary) hypertension I10 ; Unspecified atrial fibrillation I48.91 ; Adult failure to thrive R62.7 and Acquired absence of right great toe Z89.411 Assessments Encounter Date Diagnosis (ICD Code) Assessment Notes Treatment Notes Treatment Clinical Notes Section Notes 07/16/2025 Pressure ulcer of sacral region, stage 2 (ICD-10 - L89.152) 07/23/2025 Pressure ulcer of sacral region, stage 2 (ICD-10 - L89.152) 07/16/2025 Type 2 diabetes mellitus with hyperglycemia (ICD-10 - E11.65) 07/23/2025 Type 2 diabetes mellitus with hyperglycemia (ICD-10 - E11.65) 07/23/2025 Wernicke's encephalopathy (ICD-10 - E51.2) 07/16/2025 Wernicke's encephalopathy (ICD-10 - E51.2) 07/16/2025 Essential (primary) hypertension (ICD-10 - I10) 07/23/2025 Essential (primary) hypertension (ICD-10 - I10) 07/23/2025 Unspecified atrial fibrillation (ICD-10 - I48.91) 07/16/2025 Unspecified atrial fibrillation (ICD-10 - I48.91) 07/23/2025 Adult failure to thrive (ICD-10 - R62.7) 07/16/2025 Adult failure to thrive (ICD-10 - R62.7) 07/16/2025 Acquired absence of right great toe (ICD-10 - Z89.411) 07/23/2025 Acquired absence of right great toe (ICD-10 - Z89.411) 07/16/2025 Other Today I saw Ryne at the nursing on for his initial evaluation and management of a stage II pressure ulcer on his sacrum. As noted he was recently hospitalized for DKA and has now been discharged to the [facility]. On exam he has a large open area on his sacrum. There was evidence of devitalized tissue covering the base but no evidence of any foul order, purulent drainage or any other signs to suggest an underlying infective process. After examining the area I performed debridement of them as outlined. He tolerated the procedure well. I recommended that we apply medihoney onto the wound base and cover it with a dry dressing. Staff will perform the dressing changes daily and additional changes as necessary. Staff will also continue to assist him with offloading the area. I will follow-up with him next week. 07/23/2025 Other Today I saw Ryne at the [facility] for his follow-up appointment. Nursing staff report no new issues related to his wound site. On exam he remains afebrile we then removed the dressings and I examined the wound area. He continues to have a large open area on his sacrum. There is no foul odor, purulent drainage or any other signs to suggest an underlying infective process. After examining the area I performed debridement of it as outlined to remove devitalized tissue. He tolerated the procedure. I recommended that we switch to the application of calcium alginate with silver to the wound site along with zinc to the periwound area. It was then covered with a dry dressing. Staff will perform his dressing changes daily and additional changes as necessary. They will also continue to help him offload and avoid sliding on his back. He will be followed next week by a different provider. Plan Of Treatment No Information Insurance Providers Payer Name Payer Address Payer Phone Subscriber Number Group Number Insured Name Patient Relationship to Insured Coverage Start Date Coverage End Date [facility] [address] [place] [phone] [id number] Ryne Duncan Self - patient is the insured Medical (General) History Medical History History ICD Code Type 2 diabetes mellitus with hyperglyce mk E11.65 Alcohol use, unspecified, uncomplicated F10.90 Wernicke's encephalopathy E51.2 Adult failure to thrive R62.7 History of falling Z91.81 Chronic kidney disease, unspecified N18. 9 Essential (primary) hypertension I10 long-term (current) use of insulin Z79.4 Unspecified atrial fibrillation I48.91 Pressure ulcer of sacral region, unspeci fied stage L89.159 Depression, unspecified F32.A Atherosclerotic heart diseas e of [place] coronary artery without angina pectoris I25.10 Heart failure, unspecified I50.9 Gastro-esophageal reflux disease without esophagitis K21.9 Acquired absence of right great toe Z89. 411 Presence of aortocoronary bypass graft Z 95.1
--- OUTSIDE RECORDS SUMMARY | 2025-08-22 22:46 | XMS_ITS | Encounter Summary ---
Author Organization [employer] Address [address] [place] [address] Care Team Providers Care Mechanical Press Operator Name Role Phone Linnea Beth MD Primary Care Provider + Encounter Details Date Type Department Care Team (Late st Contact Info) Description 07/24/2025 Lab Requisition [facility] - Main Lab [address] [facility] [place] [address] Linnea Beth MD [address] [address] Type 2 diabetes mellitus with hyperglycemia (CMS/HCC V24, CMS/HCC V28) Social History Tobacco Use Types Packs/Day Years [...] Procedure Name Priority Date/Time Associated Diagnosis Comments CBC WITH AUTO DIFFERENTIAL Routine 07/24/2025 4:58 AM EDT Type 2 diabetes mellitus with hyperglycemia (CMS/HCC V24, CMS/HCC V28) CBC AND DIFFERENTIAL Routine 07/24/2025 4:58 AM EDT Type 2 diabetes mellitus with hyperglycemia (CMS/HCC V24, CMS/HCC V28) LIPASE Routine 07/24/2025 4:58 AM EDT Type 2 diabetes mellitus with hyperglycemia (CMS/HCC V24, CMS/HCC V28) AMYLASE Routine 07/24/2025 4:58 AM EDT Type 2 diabetes mellitus with hyperglycemia (CMS/HCC V24, [facility] V28) COMPREHENSIVE METABOLIC PANEL Routine 07/24/2025 4:58 AM EDT Type 2 diabetes mellitus with hyperglycemia ([facility] V24, [facility] V28) documented in this encounter Results * (ABNORMAL) CBC auto differential (07/24/2025 4:58 AM EDT) [facility] WBC 9.5 4.8 - 10.8 K/mcL LAB HEMETOLOGY METHOD 07/24/2025 9:51 AM [facility] RBC 3.00(L) 4.50 - 5.50 M/mcL LAB HEMETOLOGY METHOD 07/24/2025 9:51 AM [facility] Hemoglobin 8.6(L) 13.5 - 17.5 g/dL LAB HEMETOLOGY METHOD 07/24/2025 9:51 AM [facility] Hematocrit 27.9(L) 42.0 - 54.0 % LAB HEMETOLOGY METHOD 07/24/2025 9:51 AM [facility] MCV 93.6 79.0 - 98.0 FL LAB HEMETOLOGY METHOD 07/24/2025 9:51 AM [facility] MCH 28.9 27.0 - 32.0 pcg LAB HEMETOLOGY METHOD 07/24/2025 9:51 AM [facility] MCHC 30.8(L) 32.0 - 37.0 g/dL LAB HEMETOLOGY METHOD 07/24/2025 9:51 AM [facility] RDW 15.4(H) 11.0 - 15.0 % LAB HEMETOLOGY METHOD 07/24/2025 9:51 AM [facility] Platelets 499(H) 130 - 400 K/mcL LAB HEMETOLOGY METHOD 07/24/2025 9:51 AM [facility] MPV 9.6 7.0 - 11.0 FL LAB HEMETOLOGY METHOD 07/24/2025 9:51 AM [facility] NRBC 0.0 <1.0 % LAB HEMETOLOGY METHOD 07/24/2025 9:51 AM [facility] NRBC Absolute 0.00 <0.10 K/mcL LAB HEMETOLOGY METHOD 07/24/2025 9:51 AM [facility] Neutrophils Relative 54.8 % LAB HEMETOLOGY METHOD 07/24/2025 9:51 AM [facility] Lymphocytes Relative 27.8 % LAB HEMETOLOGY METHOD 07/24/2025 9:51 AM [facility] Monocytes Relative 9.2 % LAB HEMETOLOGY METHOD 07/24/2025 9:51 AM [facility] Eosinophils Relative 5.6 % LAB HEMETOLOGY METHOD 07/24/2025 9:51 AM [facility] Basophils Relative 1.5 % LAB HEMETOLOGY METHOD 07/24/2025 9:51 AM [facility] Immature Granulocytes Relative 1.1 % LAB HEMETOLOGY METHOD 07/24/2025 9:51 AM [facility] Neutrophils Absolute 5.21 1.50 - 7.00 K/mcL LAB HEMETOLOGY METHOD 07/24/2025 9:51 AM [facility] Lymphocytes Absolute 2.64 1.00 - 5.00 K/mcL LAB HEMETOLOGY METHOD 07/24/2025 9:51 AM [facility] Monocytes Absolute 0.87 0.20 - 1.00 K/mcL LAB HEMETOLOGY METHOD 07/24/2025 9:51 AM [facility] Eosinophils Absolute 0.53(H) 0.00 - 0.50 K/mcL LAB HEMETOLOGY METHOD 07/24/2025 9:51 AM EDT [facility] Basophils Absolute 0.14 0.00 - 0.20 K/[facility] LAB HEMETOLOGY METHOD 07/24/2025 9:51 AM EDT [facility] Immature Granulocytes Absolute 0.10(H) 0.00 - 0.03 K/[facility] LAB HEMETOLOGY METHOD 07/24/2025 9:51 AM EDT [facility] Blood Venous blood specimen / Unknown Venipuncture / Unknown 07/24/2025 4:58 AM EDT 07/24/2025 9:20 AM EDT Linnea Beth MD LAB BLOOD ORDERABLES Fin al Result Performing Organization Address City/[facility]/ZIP Co de Phone Number [facility] [address] [place] [address], [place] [phone] * Lipase (07/24/2025 4:58 AM EDT) Lipase 43 13 - 75 unit/L LAB CHEMISTRY METHOD 07/24/2025 10:23 AM EDT [facility] Blood Venous blood specimen / Unknown Venipuncture / Unknown 07/24/2025 4:58 AM EDT 07/24/2025 9:20 AM EDT Linnea Beth MD LAB BLOOD ORDERABLES Fin al Result [facility] [address] [place] [address], [place] [phone] * Amylase (07/24/2025 4:58 AM EDT) Amylase 47 25 - 115 unit/L LAB CHEMISTRY METHOD 07/24/2025 10:23 AM EDT [facility] Blood Venous blood specimen / Unknown Venipuncture / Unknown 07/24/2025 4:58 AM EDT 07/24/2025 9:20 AM EDT us Linnea Beth MD LAB BLOOD ORDERABLES Fin al Result [facility] [address] [place] [address], [place] [phone] * (ABNORMAL) Comprehensive metabolic panel (07/24/2025 4:58 AM EDT) Sodium 144 133 - 145 mmol/L LAB CHEMISTRY METHOD 07/24/2025 10:40 AM EDT [facility] Potassium 4.1 3.5 - 5.5 mmol/L LAB CHEMISTRY METHOD 07/24/2025 10:40 AM [facility] Chloride 113(H) 96 - 110 mmol/L LAB CHEMISTRY METHOD 07/24/2025 10:40 AM [facility] CO2 27 21 - 32 mmol/L LAB CHEMISTRY METHOD 07/24/2025 10:40 AM [facility] Anion Gap 4 3 - 11 LAB CHEMISTRY METHOD 07/24/2025 10:40 AM [facility] Glucose 118(H) 70 - 100 mg/dL LAB CHEMISTRY METHOD 07/24/2025 10:40 AM [facility] BUN 35(H) 5 - 25 mg/dL LAB CHEMISTRY METHOD 07/24/2025 10:40 AM [facility] Comment:Results verified by repeat testing Creatinine 0.94 0.70 - 1.30 mg/dL LAB CHEMISTRY METHOD 07/24/2025 10:40 AM [facility] eGFR 96 >=60 mL/min/1. 73m2 LAB CHEMISTRY METHOD 07/24/2025 10:40 AM [facility] Comment:Calculation based on the Chronic Kidney Disease Epidemiology Collaboration (CKD-EPI) equation refit without adjustment for race. BUN/Creatinine Ratio 37.2 LAB CHEMISTRY METHOD 07/24/2025 10:40 AM [facility] Calcium 8.0(L) 8.5 - 10.5 mg/dL LAB CHEMISTRY METHOD 07/24/2025 10:40 AM [facility] AST (SGOT) 17 10 - 42 unit/L LAB CHEMISTRY METHOD 07/24/2025 10:40 AM [facility] ALT (SGPT) 21 10 - 60 unit/L LAB CHEMISTRY METHOD 07/24/2025 10:40 AM [facility] Alkaline Phosphatase 120 42 - 121 unit/L LAB CHEMISTRY METHOD 07/24/2025 10:40 AM [facility] Total Protein 5.0(L) 6.0 - 8.0 g/dL LAB CHEMISTRY METHOD 07/24/2025 10:40 AM [facility] Albumin 1.7(L) 3.2 - 5.0 g/dL LAB CHEMISTRY METHOD 07/24/2025 10:40 AM [facility] Comment:Results verified by repeat testing Total Bilirubin 0.1 0.0 - 1.4 mg/dL LAB CHEMISTRY METHOD 07/24/2025 10:40 AM [facility] Comment:Results verified by repeat testing Blood Venous blood specimen / Unknown Venipuncture / Unknown 07/24/2025 4:58 AM EDT 07/24/2025 9:20 AM EDT us Linnea Beth MD LAB BLOOD ORDERABLES Fin al Result [facility] [address] [place] [address], documented in this encounter Visit Diagnoses Diagnosis Type 2 diabetes mellitus with hyperglycemia (CMS/HCC V24, CMS/HCC V28) documented in this encounter Care Teams Mechanical Press Operator Relationship Specialty Start Date End Date Linnea Beth MD [address] [place] [id number] PCP - General Family Medicine 07/16/25 documented as of this encounter
--- OUTSIDE RECORDS SUMMARY | 2025-08-22 22:46 | XMS_ITS | Patient Health Record ---
[facility] Address [address] [place] [address] Care Team Providers Care Audio/Visual Operator Name Role Phone Jose White MD Primary Care Provider Juan Moody Unavailable [phone] Reason For Referral No Information Social History Tobacco Use: Social History Observation Description Date Details (start date - stop date) Current Smoker NA - NA Tobacco Use/Smoking Question Answer Notes Are you a: current smoker When did you start smoking? 20 yrs How many cigarettes a day do you smoke? 11-20 Plan Of Treatment No Information Insurance Providers Payer Name Payer Address Payer Phone Subscriber Number Group Number Insured Name Patient Relationship to Insured Coverage Start Date Coverage End Date Medicare National [employer] [address] [place] [address] [id number] Ryne Duncan Self - patient is the insured Medical (General) History Medical History History ICD Code Diabetes mellitus Transfusions
--- OUTSIDE RECORDS SUMMARY | 2025-08-22 22:46 | XMS_ITS | Encounter Summary ---
Author Organization [facility] Address [address] [place] [address] Care Team Providers Care Room Service Server Name Role Phone Linnea Beth MD Primary Care Provider + Encounter Details Date Type Department Care Team (Late st Contact Info) Description 07/14/2025 Lab Requisition [facility] - Main Lab [address] [facility] [place] [address] Linnea Beth MD [address] [address] Type 2 diabetes mellitus with hyperglycemia (CMS/HCC V24, CMS/HCC V28); Chronic kidney disease, unspecified; Essential (primary) hypertension; Osteoarthritis of first carpometacarpal joint, unspecified Social History Tobacco Use Types Packs/Day [...] Associated Diagnosis Comments COMPLETE BLOOD COUNT Routine 07/14/2025 5:11 AM EDT Type 2 diabetes mellitus with hyperglycemia (CMS/HCC V24, CMS/HCC V28) Chronic kidney disease, unspecified Essential (primary) hypertension Osteoarthritis of first carpometacarpal joint, unspecified BASIC METABOLIC PANEL Routine 07/14/2025 5:11 AM EDT Type 2 diabetes mellitus with hyperglycemia (CMS/HCC V24, CMS/HCC V28) Chronic kidney disease, unspecified Essential (primary) hypertension Osteoarthritis of first carpometacarpal joint, unspecified documented in this encounter Results * (ABNORMAL) Basic metabolic panel (07/14/2025 5:11 AM EDT) Sodium 142 133 - 145 mmol/L LAB CHEMISTRY METHOD 07/14/2025 11:25 AM [facility] Potassium 4.6 3.5 - 5.5 mmol/L LAB CHEMISTRY METHOD 07/14/2025 11:25 AM [facility] Chloride 109 96 - 110 mmol/L LAB CHEMISTRY METHOD 07/14/2025 11:25 AM [facility] CO2 22 21 - 32 mmol/L LAB CHEMISTRY METHOD 07/14/2025 11:25 AM [facility] Anion Gap 11 3 - 11 LAB CHEMISTRY METHOD 07/14/2025 11:25 AM [facility] Glucose 375(H) 70 - 100 mg/dL LAB CHEMISTRY METHOD 07/14/2025 11:25 AM [facility] BUN 20 5 - 25 mg/dL LAB CHEMISTRY METHOD 07/14/2025 11:25 AM [facility] Creatinine 0.95 0.70 - 1.30 mg/dL LAB CHEMISTRY METHOD 07/14/2025 11:25 AM [facility] eGFR 95 >=60 mL/min/1. 73m2 LAB CHEMISTRY METHOD 07/14/2025 11:25 AM [facility] Comment:Calculation based on the Chronic Kidney Disease Epidemiology Collaboration (CKD-EPI) equation refit without adjustment for race. BUN/Creatinine Ratio 21.1 LAB CHEMISTRY METHOD 07/14/2025 11:25 AM [facility] Calcium 7.9(L) 8.5 - 10.5 mg/dL LAB CHEMISTRY METHOD 07/14/2025 11:25 AM [facility] Blood Venous blood specimen / Unknown Venipuncture / Unknown 07/14/2025 5:11 AM EDT 07/14/2025 9:39 AM EDT us Linnea Beth MD LAB BLOOD ORDERABLES Fin al Result [facility] [address] [place] [address], [place] [phone] * (ABNORMAL) Complete blood count (07/14/2025 5:11 AM EDT) [facility] WBC 8.9 4.8 - 10.8 K/mcL LAB HEMETOLOGY METHOD 07/14/2025 10:12 AM EDT [facility] RBC 3.10(L) 4.50 - 5.50 M/mcL LAB HEMETOLOGY METHOD 07/14/2025 10:12 AM EDT [facility] Hemoglobin 8.8(L) 13.5 - 17.5 g/dL LAB HEMETOLOGY METHOD 07/14/2025 10:12 AM T [facility] Hematocrit 28.6(L) 42.0 - 54.0 % LAB HEMETOLOGY METHOD 07/14/2025 10:12 AM EDT [facility] MCV 92.0 79.0 - 98.0 FL LAB HEMETOLOGY METHOD 07/14/2025 10:12 AM EDT [facility] MCH 28.3 27.0 - 32.0 pcg LAB HEMETOLOGY METHOD 07/14/2025 10:12 AM EDT [facility] MCHC 30.8(L) 32.0 - 37.0 g/dL LAB HEMETOLOGY METHOD 07/14/2025 10:12 AM EDT [facility] RDW 14.1 11.0 - 15.0 % LAB HEMETOLOGY METHOD 07/14/2025 10:12 AM [facility] Platelets 679(H) 130 - 400 K/mcL LAB HEMETOLOGY METHOD 07/14/2025 10:12 AM EDT [facility] MPV 9.4 7.0 - 11.0 FL LAB HEMETOLOGY METHOD 07/14/2025 10:12 AM EDT [facility] NRBC 0.0 <1.0 % [facility] 07/14/2025 10:12 AM EDT [facility] NRBC Absolute 0.00 <0.10 K/mcL LAB HEMETOLOGY METHOD 07/14/2025 10:12 AM EDT [facility] Blood Venous blood specimen / Unknown Venipuncture / Unknown 07/14/2025 5:11 AM EDT 07/14/2025 9:39 AM EDT us Linnea Beth MD LAB BLOOD ORDERABLES Fin al Result [facility] [address] [place] [address], documented in this encounter Visit Diagnoses Diagnosis Type 2 diabetes mellitus with hyperglycemia (CMS/HCC V24, CMS/HCC V28) Chronic kidney disease, unspecified Essential (primary) hypertension Unspecified essential hypertension Osteoarthritis of first carpometacarpal joint, unspecified documented in this encounter Care Teams Room Service Server Relationship Specialty Start Date End Date Linnea Beth MD [address] [address] PCP - General Family Medicine 07/16/25 documented as of this encounter
[2025-08-22] MEDS: Albuterol Sulfate (0.083%) 2.5 MG/3 ML VIAL.NEB 10 MG INHALE (22:50)
[2025-08-22] MEDS: Calcium Gluconate/NaCl,Iso-Osm 2 GM/100 ML PLAST..BAG IV (23:12)
[2025-08-22 23:25] LABS: Resp Syncy Virus RNA Qual PCR NEGATIVE (Negative); SARS COV2 PCR INHOUSE NEGATIVE (Negative)
[2025-08-22 23:51] LABS: Troponin-I High Sensitivity 56.4 ng/L (<3.5-35.0)
[2025-08-23] VITALS (15 sets, daily range): BP systolic 92–152; BP diastolic 45–70; PULSE 72–89; RESP 16–25; TEMP 36.7–38; O2SAT 93–97
[2025-08-23 00:21] LABS: Reflex Lactate? Lactic Acid Added
[2025-08-23 00:51] LABS: Anion Gap 20 (12-20); Blood Urea Nitrogen 72 mg/dL (9-16); Calcium 8.4 mg/dL (8.4-10.2); Carbon Dioxide 16 mmol/L (22-29); Chloride 113 mmol/L (96-108); Creatinine Clr Calc Pharmacy 15.0; Estimated Glomerular Filt Rate 15; Potassium 5.0 mmol/L (3.3-5.1); Sodium 144 mmol/L (135-145)
[2025-08-23 01:48] LABS: ~Lactic Acid-LAB USE ONLY 4.0 mmol/L (0.5-2.0)
[2025-08-23 02:04] LABS: Appearance Urine Turbid; Glucose Urine UA Negative (Negative); PH 8.0 (5.0-9.0); Specific Gravity - Urine 1.015 (1.005-1.025); UMIC TRIGGER UACC YES
[2025-08-23 02:15] LABS: UACC Culture Trigger YES
[2025-08-23 03:23] LABS: Reflex Lactate? 2 Y
[2025-08-23 04:25] LABS: ~Lactic Acid-LAB USE ONLY 1.4 mmol/L (0.5-2.0)
--- NOTE | 2025-08-23 06:32 | PM.IMHP ---
History of Present Illness Date of Service: 08/23/25 Attending physician on admission: Luigi So Chief Complaint: lethargy Patient is a 54-year-old male with a past medical history significant for CHF, AFib, hypertension, CKD, Wernicke's encephalopathy, history alcohol abuse and type 2 diabetes, who presented to the ED from a nursing facility due to lethargy. The patient arrived his O2 saturation was in the low 80s and he is somnolent, unable to provide any history. Nursing facility notes mention dorantes catheter however pt does not have one. urine is malodorous and positive for UTI. creatinine of 4.22, 0.77 upon [facility] chart review. Imaging revealing bilateral pneumonia, possible colitis versus IBD, cystitis and mild left hydronephrosis. He is also hyperkalemic and was treated in the ED with albuterol, calclium, insulin, dextrose, and bicarb. 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 Atrial fibrillation H/O: HTN (hypertension) CKD (chronic kidney disease) Wernicke encephalopathy Alcohol abuse Diabetes mellitus type 2 in nonobese Surgical History History of heart bypass surgery Social History Unable to assess alcohol history related to: Unable to respond Smoked in Last 30 Days: No Use of substances other than those prescribed or required for medical reasons: No Advance Directives: Yes Advance Directives on File: Yes Advance Directives Date on File: 08/22/25 Do you have a plan to hurt others: No Plan Meds Allergies Allergy/AdvReac Type Severity Reaction Status Date / Time No Known Allergies Allergy Verified 08/22/25 21:11 Active Medications: Current Medications Acetaminophen (Acetaminophen 325 Mg Tablet) 975 mg PO Q6H PRN PRN Reason: Pain, Mild 1-3,fever,headache Calcium Carbonate (Calcium Carbonate 750 Mg Tab.Chew) 750 mg PO Q4H PRN PRN Reason: Heartburn Dextrose (Dextrose 50 % 25 Gm/50 Ml Syringe) 25 gm IVPUSH Q15M PRN; Protocol PRN Reason: per Hypoglycemia Standing Ord. Glucose (Glucose Gel 15 Gm Gel..Gram.) 15 gm PO Q15M PRN; Protocol PRN Reason: per Hypoglycemia Standing Ord. Heparin Sodium (Porcine) (Heparin Sodium,Porcine 5,000 Unit/Ml Vial) 5,000 unit SUBCUT Q8H [facility] Lactated Ringer's (Lr) 1,000 mls @ 80 mls/hr IVCONT .[id number] [facility] Stop: 08/23/25 18:59 Ceftriaxone Sodium 2 gm/ (Sodium Chloride) 50 mls @ 100 mls/hr IV Q24H [facility] Doxycycline Hyclate 100 mg/ (Sodium Chloride) 250 mls @ 166.67 mls/hr IV BID [facility] Insulin Human Lispro (Insulin Lispro 100 Unit/Ml 3 Ml Vial) 0 unit SUBCUT QIDACHS [facility]; Protocol Magnesium Hydroxide (Milk Of Magnesia 30 Ml Oral.Susp) 30 ml PO DAILY PRN PRN Reason: Constipation Melatonin (Melatonin 3 Mg Tablet) 6 mg PO BEDTIME PRN PRN Reason: Insomnia Ondansetron HCl (Ondansetron Hcl 4 Mg/2 Ml Vial) 4 mg IVPUSH Q8H PRN PRN Reason: Nausea and Vomiting Oxycodone HCl (Oxycodone Hcl Immed Release 5 Mg Tablet) 5 mg PO Q6H PRN PRN Reason: Pain, Severe (Pain Scale 7-10) Sodium Chloride (0.9 % Sodium Chloride Flush 3 Ml Syringe) 3 ml IVFLUSH QSHIFT [facility] Tramadol HCl (Tramadol Hcl 50 Mg Tablet) 50 mg PO Q6H PRN PRN Reason: Pain, Moderate(Pain Scale 4-6) Physical Exam Vital Signs and Narrative: Vital Signs: Last Vital Signs Temp 100.4 F 08/23/25 04:58 Pulse 89 08/23/25 04:58 Resp 19 08/23/25 04:58 BP 138/60 08/23/25 04:58 Pulse Ox 93 08/23/25 04:58 O2 Del Method Nasal Cannula 08/23/25 04:58 O2 Flow Rate 4 08/23/25 04:58 Oxygen Flow Rate 10 08/22/25 21:02 BMI result Body Mass Index 19.5 General: Aler and oriented to person and place only, somnolent Resp: diminshed throughout, no wheezing or crackles, limited exam due to somnolence CVS: S1, S2, RRR GI: +BS, generalized tenderness with palpation, no distention Skin: Warm, dry Neuro: PERRL, Motor grossly intact bilaterally Extremities: No pitting edema Psych: Somnolent Results Labs 08/23/25 06:26 08/23/25 06:26 Labs: Laboratory Results - last 24 hr 08/22/25 08/22/25 08/22/25 21:47 21:48 21:49 MCV 90.5 MCH 28.6 MCHC 31.6 RDW 15.5 Plt Count 435 H MPV 10.1 Immature Gran % (Auto) Cancelled Neut % (Auto) Cancelled Lymph % (Auto) Cancelled [place] % (Auto) Cancelled Eos % (Auto) Cancelled Baso % (Auto) Cancelled Lymph # (Auto) Cancelled [place] # (Auto) Cancelled Eos # (Auto) Cancelled Baso # (Auto) Cancelled Abs Immat Gran (auto) Cancelled Absolute Neuts (auto) Cancelled Absolute Nucleated RBC 0.000 Nucleated RBC % (auto) 0.0 Neutrophils % (Manual) 36 L Band Neutrophils % 33 H Lymphocytes % (Manual) 18 L Atypical Lymphs % (Man) 3 Monocytes % (Manual) 5 Metamyelocytes % 5 Abs Neuts (Manual) 8.8 H Lymphocytes # (Manual) 2.3 Atyp Lymphs # (Manual) 0.4 Monocytes # (Manual) 0.6 Metamyelocytes # 0.6 Toxic Vacuolation PRESENT Platelet Estimate NORMAL Large Platelets PRESENT Plt Morphology Comment NOTED RBC Morphology NOTED Ilan Cells 1+ (0-2) VBG pH 7.34 VBG pCO2 37 VBG pO2 41 VBG HCO3 20 L VBG O2 Saturation 54.0 VBG Base Excess -4.1 Anion Gap 20 Estim Creat Clear Calc 14.3 Estimated GFR 14 Random Glucose 185 H Lactic Acid 3.1 H* Lactic Acid F/U @ 2Hr Lactic Acid F/U @ 4Hr Calcium 9.1 Magnesium 2.3 Total Bilirubin 0.2 Direct Bilirubin < 0.2 AST 31 ALT 7 Alkaline Phosphatase 94 Troponin I High Sens 73.6 H NT-Pro-B Natriuret Pep Total Protein 7.3 Albumin 2.7 L TSH 1.18 Urine Color Urine Appearance Urine pH Ur Specific [place] Urine Protein Urine Glucose (UA) Urine Ketones Urine Blood Urine Nitrite Ur Leukocyte Esterase Urine RBC Urine WBC Ur Squamous Epith Cells Urine Bacteria Hyaline Casts Influenza Type A (PCR) NEGATIVE Influenza Type B (PCR) NEGATIVE RSV RNA Qual (PCR) NEGATIVE SARS-CoV-2 RNA (RT-PCR) NEGATIVE 08/22/25 08/23/25 08/23/25 23:28 00:16 01:20 MCV MCH MCHC RDW Plt Count MPV Immature Gran % (Auto) Neut % (Auto) Lymph % (Auto) [place] % (Auto) Eos % (Auto) Baso % (Auto) Lymph # (Auto) [place] # (Auto) Eos # (Auto) Baso # (Auto) Abs Immat Gran (auto) Absolute Neuts (auto) Absolute Nucleated RBC Nucleated RBC % (auto) Neutrophils % (Manual) Band Neutrophils % Lymphocytes % (Manual) Atypical Lymphs % (Man) Monocytes % (Manual) Metamyelocytes % Abs Neuts (Manual) Lymphocytes # (Manual) Atyp Lymphs # (Manual) Monocytes # (Manual) Metamyelocytes # Toxic Vacuolation Platelet Estimate Large Platelets Plt Morphology Comment RBC Morphology [place] Cells VBG pH VBG pCO2 VBG pO2 VBG HCO3 VBG O2 Saturation VBG Base Excess Anion Gap 20 Estim Creat Clear Calc 15.0 Estimated GFR 15 Random Glucose 221 H Lactic Acid Lactic Acid F/U @ 2Hr 4.0 H* Lactic Acid F/U @ 4Hr Calcium 8.4 D Magnesium Total Bilirubin Direct Bilirubin AST ALT Alkaline Phosphatase Troponin I High Sens 56.4 H NT-Pro-B Natriuret Pep 7730.7 H Total Protein Albumin TSH Urine Color Urine Appearance Urine pH Ur Specific [place] Urine Protein Urine Glucose (UA) Urine Ketones Urine Blood Urine Nitrite Ur Leukocyte Esterase Urine RBC Urine WBC Ur Squamous Epith Cells Urine Bacteria Hyaline Casts Influenza Type A (PCR) Influenza Type B (PCR) RSV RNA Qual (PCR) SARS-CoV-2 RNA (RT-PCR) 08/23/25 08/23/25 01:43 03:56 MCV MCH MCHC RDW Plt Count MPV Immature Gran % (Auto) Neut % (Auto) Lymph % (Auto) [place] % (Auto) Eos % (Auto) Baso % (Auto) Lymph # (Auto) [place] # (Auto) Eos # (Auto) Baso # (Auto) Abs Immat Gran (auto) Absolute Neuts (auto) Absolute Nucleated RBC Nucleated RBC % (auto) Neutrophils % (Manual) Band Neutrophils % Lymphocytes % (Manual) Atypical Lymphs % (Man) Monocytes % (Manual) Metamyelocytes % Abs Neuts (Manual) Lymphocytes # (Manual) Atyp Lymphs # (Manual) Monocytes # (Manual) Metamyelocytes # Toxic Vacuolation Platelet Estimate Large Platelets Plt Morphology Comment RBC Morphology Ilan Cells VBG pH VBG pCO2 VBG pO2 VBG HCO3 VBG O2 Saturation VBG Base Excess Anion Gap Estim Creat Clear Calc Estimated GFR Random Glucose Lactic Acid Lactic Acid F/U @ 2Hr Lactic Acid F/U @ 4Hr 1.4 Calcium Magnesium Total Bilirubin Direct Bilirubin AST ALT Alkaline Phosphatase Troponin I High Sens NT-Pro-B Natriuret Pep Total Protein Albumin TSH Urine Color Yellow Urine Appearance Turbid Urine pH 8.0 Ur Specific [place] 1.015 Urine Protein 300 (3+) H Urine Glucose (UA) Negative Urine Ketones Negative Urine Blood Large (3+) H Urine Nitrite Positive H Ur Leukocyte Esterase Moderate (2+) H Urine RBC 3-5 H Urine WBC >50 H Ur Squamous Epith Cells 3-5 Urine Bacteria 4+ Hyaline Casts 0-2 Influenza Type A (PCR) Influenza Type B (PCR) RSV RNA Qual (PCR) SARS-CoV-2 RNA (RT-PCR) Assessment and Plan (1) Sepsis: Status: Acute (2) Acute respiratory failure with hypoxia: Status: Acute (3) Pneumonia: Status: Acute (4) Acute UTI: Status: Acute (5) Acute kidney injury superimposed on CKD: Status: Acute (6) Acute dehydration: Status: Acute (7) Acute hyperkalemia: Status: Acute (8) Colitis: Status: Acute Plan Patient is a 54-year-old male with a past medical history significant for CHF, AFib, hypertension, CKD, Wernicke's encephalopathy, history alcohol abuse and type 2 diabetes, who presented to the ED from a nursing facility due to lethargy. Pt found to have acute hypoxia, PNA, UTI, and possible colitis on CT Sepsis with acute hypoxic respiratory failure in the setting of pneumonia, UTI - ceftriaxone and doxycycline - titrate oxygen as needed - urine culture pending - monitor CBC and BMP GILMA on CKD, likely secondary to dehydration - baseline 0.76 on [facility] chart review from 06/2025, currently cr 4.44 --> 4.22-->3.78 - mild left hydronephrosis on CT - bladder scan with >400, nursing facility chart mentions dorantes catheter but pt does not have one, dorantes to be placed - IV fluids - monitor BMP - avoid nephrotoxins when possible - nephrology consult Acute hyperkalemia, 6.3 --> 5.0 --> 5.2 - monitor BMP - tele acute lactic acidosis, likely secondary to sepsis and GILMA - improved with IVF Colitis versus IBD on CT - on ceftriaxone and doxycycline, add flagyl - stool studies Chronic CHF, unspecified, no acute exacerbation - continue home therapies, avoid diuretics x24 hours due to sepsis Paroxysmal AFib - hold eliquis due to GILMA , heparin Hypertension - BP normotensive, resume home therapies when appropriate Type 2 diabetes - sliding scale insulin - diabetic diet med rec pending Full code, MOSLT in chart VTE prophylaxis: Heparin Patient with sepsis with acute hypoxic respiratory failure in the setting of pneumonia and UTI, complicated by GILMA on CKD and acute hyperkalemia, requiring admission for at least 2 midnight stay for IV antibiotics, monitoring and further evaluation. Quality Stroke Does the patient have a stroke diagnosis?: No VTE Prior VTE?: No VTE Risk Level:: Medical - moderate - high VTE Device Contraindication: Treatment Not Indicated VTE Drug Contraindication: N/A - Med Ordered
[2025-08-23 06:35] LABS: Hematocrit 26.7 % (42.0-52.0); Hemoglobin 8.5 g/dl (14.0-18.0); Mean Corpuscular HGB Conc 31.8 g/dl (31.0-36.0); Mean Corpuscular Hemoglobin 28.1 pg (27.0-33.0); Mean Corpuscular Volume 88.1 fL (80.0-98.0); NRBC Abs Auto 0.000 X10*3/uL (0.0-0.012); NRBC Pct Auto 0.0 /100WBC (0.0-0.2); Platelet Count 324 X10*3/uL (160-400); Red Blood Count 3.03 X10*6/uL (4.60-5.80)
[2025-08-23 06:38] LABS: WBC ABN SCTR FOR CBC 1
[2025-08-23 06:48] LABS: Anion Gap 17 (12-20); Blood Urea Nitrogen 74 mg/dL (9-16); Calcium 8.4 mg/dL (8.4-10.2); Carbon Dioxide 19 mmol/L (22-29); Chloride 113 mmol/L (96-108); Creatinine Clr Calc Pharmacy 16.8; Estimated Glomerular Filt Rate 17; Potassium 5.2 mmol/L (3.3-5.1); Sodium 144 mmol/L (135-145)
[2025-08-23 07:33] LABS: Band Neutrophils Percent 29 % (3-5); Metamyelocytes Percent 1 %; Monocytes Percent Manual 3 % (2-11); Neutrophils Percent Manual 50 % (45-73)
[2025-08-23 07:36] LABS: Ovalocytes 1+ (5-14) /OIF; RBC Morphology NOTED
[2025-08-23 07:37] LABS: Burr Cells 3+ (>5) /OIF
[2025-08-23 07:39] LABS: Dohle Bodies PRESENT; Toxic Granulation PRESENT
[2025-08-23 07:40] LABS: Atypical Lymphs Percent Manual 1 % (0-6); Lymphocytes Percent Manual 16 % (20-40)
[2025-08-23 07:42] LABS: Atypical Lymph Absolute Manual 0.1 x10*3/uL; Lymphocytes Absolute Manual 1.5 X10*3/uL (1.2-4.9); Metamyelocytes Absolute 0.1 X10*3/uL; Monocytes Absolute Manual 0.3 X10*3/uL (0.1-1.2); Neutrophils Absolute Manual 7.6 X10*3/uL (2.0-8.3); White Blood Count 9.6 X10*3/uL (4.8-10.8)
[2025-08-23] MEDS: metroNIDAZOLE/NS 500 MG/100 ML PIGGYBACK 100 MG IV ×2 (07:53→15:52)
[2025-08-23] MEDS: 0.9 % Sodium Chloride Flush 3 ML SYRINGE IVFLUSH ×3 (07:54→23:03)
[2025-08-23 07:58] LABS: Glucose, Whole Blood 235 mg/dL (60-115)
[2025-08-23] MEDS: Lactated Ringers 1,000 ML 80 ML IVCONT (08:00)
[2025-08-23] MEDS: Lidocaine HCl 2 % Urojet 10 ML JEL.PF.APP TOPICAL (08:36)
--- NOTE | 2025-08-23 09:42 | PC.NURSE ---
sr on monitor, awakens to verbal stim and light touch, oriented to name only and quickly back to sleep, #16 dorantes placed with temp sensor , pt tolerated well, medicated as ordered, ivf and antibiotics currently infusing
--- NOTE | 2025-08-23 10:21 | PHA.MEDREC ---
Pharmacy Consult ? Medication Reconciliation Pharmacy has completed the medication reconciliation, utilized list from [facility].
--- NOTE | 2025-08-23 12:04 | PM.CNNEP ---
History of Present Illness Reason for Consult Consult date: 08/23/25 Chief Complaint Chief complaint: sepsis, UTI, pneumonia History of Present Illness Narrative: 54-year-old gentleman with past medical history of hypertension, diabetes mellitus, CHF, atrial fibrillation, alcohol abuse disorder with Wernicke's encephalopathy is being transferred from [facility] due to oliguria, lethargy. According to [facility] record patient has a baseline creatinine 0.77, presented with a creatinine of 4.44. So nephrology is consulted CT chest abdomen pelvis showing moderate right-sided hydronephrosis, mild left-sided hydronephrosis possibly due to cystitis with significant amount of air seen in the bladder without a Arellano in it. 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 Atrial fibrillation H/O: HTN (hypertension) CKD (chronic kidney disease) Wernicke encephalopathy Alcohol abuse Diabetes mellitus type 2 in nonobese Surgical History Surgical History History of heart bypass surgery Social History Social History Unable to assess alcohol history related to: Unable to respond Smoked in Last 30 Days: No Use of substances other than those prescribed or required for medical reasons: No Advance Directives: Yes Advance Directives on File: Yes Advance Directives Date on File: 08/22/25 Do you have a plan to hurt others: No Plan Meds Allergies Allergy/AdvReac Type Severity Reaction Status Date / Time No Known Allergies Allergy Verified 08/22/25 21:11 Active Medications: Current Medications Acetaminophen (Acetaminophen 325 Mg Tablet) 975 mg PO Q6H PRN PRN Reason: Pain, Mild 1-3,fever,headache Calcium Carbonate (Calcium Carbonate 750 Mg Tab.Chew) 750 mg PO Q4H PRN PRN Reason: Heartburn Dextrose (Dextrose 50 % 25 Gm/50 Ml Syringe) 25 gm IVPUSH Q15M PRN; Protocol PRN Reason: per Hypoglycemia Standing Ord. Glucose (Glucose Gel 15 Gm Gel..Gram.) 15 gm PO Q15M PRN; Protocol PRN Reason: per Hypoglycemia Standing Ord. Heparin Sodium (Porcine) (Heparin Sodium,Porcine 5,000 Unit/Ml Vial) 5,000 unit SUBCUT Q8H [facility] Last Admin: 08/23/25 08:01 Dose: 5,000 unit Lactated Ringer's (Lr) 1,000 mls @ 80 mls/hr IVCONT .[id number] [facility] Stop: 08/23/25 18:59 Last Admin: 08/23/25 08:00 Dose: 80 mls/hr Ceftriaxone Sodium 2 gm/ (Sodium Chloride) 50 mls @ 100 mls/hr IV Q24H [facility] Doxycycline Hyclate 100 mg/ (Sodium Chloride) 250 mls @ 166.67 mls/hr IV BID [facility] Last Admin: 08/23/25 09:03 Dose: 166.67 mls/hr Metronidazole (Flagyl) 500 mg in 100 mls @ 100 mls/hr IV Q8H [facility] Last Admin: 08/23/25 07:53 Dose: 100 mls/hr Insulin Human Lispro (Insulin Lispro 100 Unit/Ml 3 Ml Vial) 0 unit SUBCUT QIDACHS [facility]; Protocol Last Admin: 08/23/25 08:03 Dose: Not Given Magnesium Hydroxide (Milk Of Magnesia 30 Ml Oral.Susp) 30 ml PO DAILY PRN PRN Reason: Constipation Melatonin (Melatonin 3 Mg Tablet) 6 mg PO BEDTIME PRN PRN Reason: Insomnia Ondansetron HCl (Ondansetron Hcl 4 Mg/2 Ml Vial) 4 mg IVPUSH Q8H PRN PRN Reason: Nausea and Vomiting Oxycodone HCl (Oxycodone Hcl Immed Release 5 Mg Tablet) 5 mg PO Q6H PRN PRN Reason: Pain, Severe (Pain Scale 7-10) Sodium Chloride (0.9 % Sodium Chloride Flush 3 Ml Syringe) 3 ml IVFLUSH QSHIFT [facility] Last Admin: 08/23/25 07:54 Dose: 3 ml Tramadol HCl (Tramadol Hcl 50 Mg Tablet) 50 mg PO Q6H PRN PRN Reason: Pain, Moderate(Pain Scale 4-6) Home Medications ?Medication ?Instructions ?Recorded ?Confirmed ?Last Taken ?Type acetaminophen 325 mg tablet 650 mg PO Q6H PRN Fever Or Pain 08/23/25 08/23/25 Unknown History amoxicillin 875 mg tablet 875 mg PO BID 08/23/25 08/23/25 Unknown History apixaban 5 mg tablet (Eliquis) 5 mg PO BID 08/23/25 08/23/25 Unknown History aspirin 81 mg tablet 81 mg PO DAILY 08/23/25 08/23/25 Unknown History atorvastatin 80 mg tablet 80 mg PO BEDTIME 08/23/25 08/23/25 Unknown History bisacodyl 10 mg rectal suppository 10 mg IL DAILY PRN if no BM for 8 08/23/25 08/23/25 Unknown History hours after MOM carvedilol 12.5 mg tablet 12.5 mg PO BID 08/23/25 08/23/25 Unknown History dextrose 40 % oral gel (Glucose 15 g PO ONCE PRN BG below 50 08/23/25 08/23/25 Unknown History Gel) famotidine 20 mg tablet 20 mg PO BID 08/23/25 08/23/25 Unknown History folic acid 1 mg tablet 1 mg PO DAILY 08/23/25 08/23/25 Unknown History gabapentin 300 mg capsule 300 mg PO TID 08/23/25 08/23/25 Unknown History glucagon HCl 1 mg solution for 1 mg subcut ONCE PRN BG below 60 08/23/25 08/23/25 Unknown History injection insulin glargine 100 unit/mL 32 unit subcut DAILY 08/23/25 08/23/25 Unknown History subcutaneous solution (Lantus U-100 Insulin) insulin lispro 100 unit/mL 1 sliding scale dose subcut 08/23/25 08/23/25 Unknown History subcutaneous pen (Humalog KwikPen USEASDIRECTD (U-100) Insulin) magnesium hydroxide 400 mg/5 mL 30 ml PO DAILY PRN constipation, 08/23/25 08/23/25 Unknown History oral suspension (Milk of Magnesia) if no BM for 3 days melatonin 5 mg tablet 5 mg PO BEDTIME 08/23/25 08/23/25 Unknown History multivitamin 1 tab PO DAILY 08/23/25 08/23/25 Unknown History ondansetron HCl 4 mg tablet 4 mg PO Q6H PRN Nausea And Vomiting 08/23/25 08/23/25 Unknown History oxycodone 5 mg tablet 10 mg PO Q6H PRN Severe Pain 08/23/25 08/23/25 Unknown History (Scale Score 7-10) pantoprazole 40 mg tablet,delayed 40 mg PO DAILY@0630 08/23/25 08/23/25 Unknown History release sodium phosphates 19 gram-7 118 ml IL DAILY PRN if no BM for 8 08/23/25 08/23/25 Unknown History gram/118 mL enema (Fleet Enema) hours after bisacodyl suppository tamsulosin 0.4 mg capsule 0.4 mg PO BEDTIME 08/23/25 08/23/25 Unknown History thiamine HCl (vitamin B1) 100 mg 100 mg PO BID 08/23/25 08/23/25 Unknown History tablet Physical Exam Vital Signs: Last Vital Signs Temp 98.4 F 08/23/25 10:18 Pulse 72 08/23/25 10:18 Resp 18 08/23/25 10:18 BP 123/52 L 08/23/25 10:18 Pulse Ox 96 08/23/25 10:18 O2 Del Method Nasal Cannula 08/23/25 10:18 O2 Flow Rate 4 08/23/25 10:18 Oxygen Flow Rate 10 08/22/25 21:02 BMI result Body Mass Index 19.5 General: not in any acute distress, ill appearing Nutritional Appearance: well nourished and overweight Eyes: appearance normal, both eyes and all related structures; Alignment and Position: alignment normal and position normal Neck: No lymphadenopathy, no thyromegaly Resp: bilateral air entry equal, no added sounds present Cardio: Regular rate, regular rhythm; Heart sounds: S1 normal heart sound present and S2 normal heart sound present GI: soft, nontender, no guarding, no hepatosplenomegaly : bladder normal to inspection, bladder normal to palpation, no renal angle tenderness Skin: no rashes or lesions noted and elasticity normal Neuro: Confusion present, no focal deficits Results Lab Results 08/23/25 06:26 08/23/25 06:26 Lab results: Chemistry 08/22/25 08/23/25 08/23/25 21:48 00:16 06:26 Sodium 140 144 144 Potassium 6.3 H* 5.0 D 5.2 H Carbon Dioxide 18 L 16 L 19 L BUN 72 H 72 H 74 H Creatinine 4.44 H* 4.22 H* 3.78 H Calcium 9.1 8.4 D 8.4 Hematology 08/22/25 08/23/25 21:48 06:26 WBC 12.7 H 9.6 Hgb 10.8 L 8.5 L D Plt Count 435 H 324 D Urinalysis 08/23/25 01:43 Urine Color Yellow Urine Appearance Turbid Urine pH 8.0 Ur Specific [place] 1.015 Urine Protein 300 (3+) H Urine Glucose (UA) Negative Urine Ketones Negative Urine Blood Large (3+) H Urine Nitrite Positive H Ur Leukocyte Esterase Moderate (2+) H Urine RBC 3-5 H Urine WBC >50 H Ur Squamous Epith Cells 3-5 Hyaline Casts 0-2 Assessment and Plan (1) Colitis: Status: Acute (2) Acute kidney injury superimposed on CKD: Status: Acute (3) Acute hyperkalemia: Status: Acute Plan Acute kidney injury: Possibly secondary to 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 Continue ceftriaxone, white count decreasing. Continue LR at 80 mL/hour as patient looks volume depleted Recommend urology consultation Acute hyperkalemia: Secondary to acute kidney injury Should improve as the renal function improves Procedures Date of Service Date of Service: 08/23/25
[2025-08-23 12:34] LABS: Glucose, Whole Blood 217 mg/dL (60-115)
--- NOTE | 2025-08-23 13:32 | PM.EVENT ---
Event Note Date of Service: 08/23/25 Event Note: Chart reviewed patient examined agree with H&P and plan as outlined. Appreciate renal input Time Spent With Patient Time: Total time managing care of this patient today ____ minutes.
--- NOTE | 2025-08-23 13:42 | PC.NURSE ---
pt is more alert, opened eyes and made eye contact with this RN, nodded yes to offer of juice and drank several sips with a straw, family at bedside, afebrile and nad, occasional wet cough
[2025-08-23] MEDS: oxyCODONE HCl Immed Release 5 MG TABLET PO (15:46)
--- NOTE | 2025-08-23 15:59 | HO.NURTONUR ---
pt came in last night with fever, sob and ms Change, sepsis protocol, uti and pneumonia, dementia at baseline and minimally verbal, has 3 iv, b/l 20 ac's and l wrist 22. has a temp sensing dorantes in place and has been afebrile all day, throughout the day he has been sleeping and awakens with light touch and verbal stim until 30 minutes ago and he was wide awake and moaning in pain, able to state that his r side was hurting, looked uncomfortable, oxycodone was given and despite the fact that it has not kicked in, he appears more comfortable, hasn't eaten and has declined all food but has been drinking a bit of apple juice and water when we prompt him and hold the cup for him
--- NOTE | 2025-08-23 17:10 | HO.SKINPHOTO ---
Location:Buttock Location: Right Plantar Location: Left Lateral Foot / Ankle
[2025-08-23 17:27] LABS: Glucose, Whole Blood 310 mg/dL (60-115)
[2025-08-23 21:06] LABS: Glucose, Whole Blood 231 mg/dL (60-115)
[2025-08-23 21:35] LABS: CDiff Gene PCR NEGATIVE (Negative)
[2025-08-24] MEDS: metroNIDAZOLE/NS 500 MG/100 ML PIGGYBACK 100 MG IV ×3 (00:21→16:43)
[2025-08-24 02:52] VITALS: BP 131/66; PULSE 80; RESP 18; TEMP 36.8; O2SAT 95
[2025-08-24 06:49] LABS: MANUAL DIFF FLAG NO
[2025-08-24 06:55] LABS: Hematocrit 30.4 % (42.0-52.0); Hemoglobin 9.3 g/dl (14.0-18.0); Imm Gran Abs Auto 0.04 X10*3/uL (0.00-0.03); Imm Gran Pct Auto 0.4 % (0.0-0.4); Lymphocytes Absolute Auto 1.6 X10*3/uL (1.2-4.9); Mean Corpuscular HGB Conc 30.6 g/dl (31.0-36.0); Mean Corpuscular Hemoglobin 27.9 pg (27.0-33.0); Mean Corpuscular Volume 91.3 fL (80.0-98.0); NRBC Abs Auto 0.020 X10*3/uL (0.0-0.012); NRBC Pct Auto 0.2 /100WBC (0.0-0.2); Platelet Count 334 X10*3/uL (160-400); Red Blood Count 3.33 X10*6/uL (4.60-5.80); White Blood Count 10.4 X10*3/uL (4.8-10.8)
[2025-08-24 07:09] LABS: Glucose, Whole Blood 139 mg/dL (60-115)
[2025-08-24 07:16] LABS: Alanine Aminotransferase < 6 U/L (0-40); Albumin Level 2.4 g/dL (3.5-5.0); Alkaline Phosphatase 103 U/L (39-117); Aspartate Amino Transferase 19 U/L (5-37); Blood Urea Nitrogen 55 mg/dL (9-16); Calcium 8.8 mg/dL (8.4-10.2); Creatinine Clr Calc Pharmacy 32.5; Estimated Glomerular Filt Rate 36; Total Protein 6.0 g/dL (6.5-8.0)
[2025-08-24 07:26] LABS: Anion Gap 14 (12-20); Carbon Dioxide 20 mmol/L (22-29); Chloride 119 mmol/L (96-108); Potassium 4.0 mmol/L (3.3-5.1); Sodium 149 mmol/L (135-145)
[2025-08-24 07:31] VITALS: BP 149/69; PULSE 88; RESP 20; O2SAT 95
[2025-08-24 08:51] LABS: E. coli EAEC Not Detected (Not Detect.); E. coli EPEC Not Detected (Not Detect.); E. coli ETEC Not Detected (Not Detect.); E. coli STEC Not Detected (Not Detect.); Shigella sp./EIEC Not Detected (Not Detect.)
[2025-08-24 11:21] LABS: Glucose, Whole Blood 184 mg/dL (60-115)
[2025-08-24 11:22] LABS: Glucose, Whole Blood 189 mg/dL (60-115)
[2025-08-24 11:32] VITALS: BP 150/65; PULSE 69; RESP 20; TEMP 36.4; O2SAT 94
[2025-08-24] MEDS: oxyCODONE HCl Immed Release 5 MG TABLET PO ×2 (12:20→18:25)
--- NOTE | 2025-08-24 14:39 | MHC.CM.PN ---
Addendum entered by Milly Cerna 08/24/25 15:47: PER [facility], PATIENT IS THERE FOR STR AND IS ON A [facility] BED HOLD, HE WILL NEED A PT EVAL IN ORDER TO RETURN. Original Note: THIS CM ATTEMPTED TO MEET WITH PATIENT MULTIPLE TIMES, PATIENT UNAVAILABLE. CHART REVIEW COMPLETED, PATIENT WITH WERNICKE ENCEPHALOPATHY AND COGNITIVE COMMUNICATION DEFICIT. PATIENT FROM [facility], RETURN REFERRAL SENT THROUGH [facility]. THIS CM PLACED CALL TO PATIENTS CONTACTS, TRISTEN/MOTHER, CR/SPOUSE, UNABLE TO REACH BOTH CONTACTS, AND UNABLE TO LEAVE A VOICEMAIL. IMM PLACED IN CHART IN CHART ON 08/24 DUE TO BEING UNABLE TO ADDRESS WITH PATIENT OR HIS CONTACTS. NO HCP ON FILE. DP: RETURN TO [facility] VIA BLS.
--- NOTE | 2025-08-24 14:44 | HO.WOUND ---
Wound Consult: Initial 54 yr old admitted to [facility] on 08/23/25- See progress notes and H&P for detailed history. Wound consult placed for Coccyx/buttock, right heel, left foot. Patient agreeable to assessment and photo documentation. Direct care team just provided incontinent care and new dressing to coccyx/sacrum, did not assess today, photo documentation assessed from admission below. Bilateral feet/heels assessment today, see below. Upon chart review of outside medical records, patient has been seen by [facility] by a visiting provider to his facility. documentation from June shows stage 2 pressure injury to sacrum treated with debridement and medihoney. Coccyx/sacrum picture assessed from 08/23/25 Etiology: Deep tissue pressure injury Present on Admission Measurements: approxmately 10x10 Wound Bed: total area appears intact with pale pink scar tissue, and areas of deep maroon/red extending across sacrum and coccyx. appears moist and purple at gluteal cleft Drainage / Odor: none Geni wound: ? No Induration, Fluctuance or Warmth noted Pain: none Goals of Treatment: ? triad/foam Right plantar heel Etiology: brown dry stable callus Wound Bed: firm dry brown Drainage / Odor: none Geni wound: ? No Induration, Fluctuance or Warmth noted Pain: none Goals of Treatment: ?betadine Right posterior heel Etiology: deep tissue pressure injury Present on Admission Measurements: 1cm x 1cm x 0cm Wound Bed: intact purple/brown nonblanching Drainage / Odor: none Geni wound: ? No Induration, Fluctuance or Warmth noted- dry peeling skin noted Pain: none Goals of Treatment: ? offloading- skin prep Left lateral ankle Etiology: old healed skin injury- likely was full thickness as scar tissue is present - Wound Bed: intact pale pink scar tissue with surrounding intact blanchable redness Drainage / Odor: Geni wound: ? No Induration, Fluctuance or Warmth noted Pain: none Goals of Treatment: ?prevention- offloading- skin is never as strong after injury- high risk for re-injury left heel- intact pink and blanching- dry peeling skin - preventative foams in place Recommendations: 1. Turn and Reposition every 2 hours and as needed for patient comfort. Use pillows or wedges to support off loading positions. 2. Off Load all bony prominences with use of pillows and heel boots if needed. Apply Preventative foams where needed. 3. Monitor for incontinence and moisture control, use barrier creams when needed for prevention and treatment. 4. Provide adequate and supplemental nutrition. 5. Order or Continue low air loss mattress. 6. When applicable maintain blood glucose levels per Providers order. Right plantar heel: paint with betadine daily and PRN Left heel and left lateral ankle: Elevate heels off of bed surface with pillows. Float heels off of pillows. Apply skin prep allow to dry. Apply heel foam dressings, peel back and assess Q shift and change every 5-7 days and PRN. Coccyx/sacrum: Off Load Pressure with Q2 hr turns and use of pillows - Cleanse with PH balance spray or wipes, pat dry. ?Apply thin layer of Triad to wound bed. Do not remove all of paste between applications as this may cause further skin damage.? Cover with foam dressing to aid in off loading and protection from friction. Change every 3 days and PRN. Right posterior heel: elevate heels off surface of the bed with pillows, float heels off pillows, apply skin prep and allow to dry. Re-consult wound care Nurse for wound deterioration or wound changes.
[2025-08-24 15:27] VITALS: BP 133/90; PULSE 73; RESP 18; TEMP 36.3; O2SAT 94
--- NOTE | 2025-08-24 15:51 | HO.PM.IMPN ---
Subjective Subjective Date of Service: 08/24/25 Interval History: No acute issues overnight. White count improving Review of Systems Unable to obtain Physical Exam Vital Signs: Vital Signs: Last Vital Signs Temp 97.4 F 08/24/25 15:27 Pulse 73 08/24/25 15:27 Resp 18 08/24/25 15:27 BP 133/90 H 08/24/25 15:27 Pulse Ox 94 08/24/25 15:27 O2 Del Method Room Air 08/24/25 15:27 O2 Flow Rate 2 08/24/25 07:31 Oxygen Flow Rate 10 08/22/25 21:02 BMI result Body Mass Index 19.5 Const: Other: Somnolent but arousable confused at baseline Resp: Other: Clear to auscultation bilaterally. No rales rhonchi or wheezes Cardio: Other: No S4; positive S1-S2; no S3 murmurs rubs or gallops GI: Other: Soft nontender nondistended normoactive bowel sounds Extrem: Other: No edema bilaterally Objective Data Active Medications Acetaminophen (Acetaminophen 325 Mg Tablet) 975 mg PO Q6H PRN PRN Reason: Pain, Mild 1-3,fever,headache Last Admin: 08/24/25 08:10 Dose: 975 mg Documented By: JOSE Calcium Carbonate (Calcium Carbonate 750 Mg Tab.Chew) 750 mg PO Q4H PRN PRN Reason: Heartburn Dextrose (Dextrose 50 % 25 Gm/50 Ml Syringe) 25 gm IVPUSH Q15M PRN; Protocol PRN Reason: per Hypoglycemia Standing Ord. Glucose (Glucose Gel 15 Gm Gel..Gram.) 15 gm PO Q15M PRN; Protocol PRN Reason: per Hypoglycemia Standing Ord. Heparin Sodium (Porcine) (Heparin Sodium,Porcine 5,000 Unit/Ml Vial) 5,000 unit SUBCUT Q8H [facility] Last Admin: 08/24/25 14:27 Dose: Not Given Documented By: JOSE Non-Admin Reason: hold per md, hematuria Ceftriaxone Sodium 2 gm/ (Sodium Chloride) 50 mls @ 100 mls/hr IV Q24H [facility] Last Infusion: 08/23/25 23:35 Dose: Infused Documented By: BRETT Doxycycline Hyclate 100 mg/ (Sodium Chloride) 250 mls @ 166.67 mls/hr IV BID [facility] Last Infusion: 08/24/25 11:28 Dose: Infused Documented By: JOSE Metronidazole (Flagyl) 500 mg in 100 mls @ 100 mls/hr IV Q8H [facility] Last Infusion: 08/24/25 10:07 Dose: Infused Documented By: JOSE Insulin Human Lispro (Insulin Lispro 100 Unit/Ml 3 Ml Vial) 0 unit SUBCUT QIDACHS [facility]; Protocol Last Admin: 08/24/25 12:18 Dose: 2 unit Documented By: JOSE Magnesium Hydroxide (Milk Of Magnesia 30 Ml Oral.Susp) 30 ml PO DAILY PRN PRN Reason: Constipation Melatonin (Melatonin 3 Mg Tablet) 6 mg PO BEDTIME PRN PRN Reason: Insomnia Ondansetron HCl (Ondansetron Hcl 4 Mg/2 Ml Vial) 4 mg IVPUSH Q8H PRN PRN Reason: Nausea and Vomiting Oxycodone HCl (Oxycodone Hcl Immed Release 5 Mg Tablet) 5 mg PO Q6H PRN PRN Reason: Pain, Severe (Pain Scale 7-10) Last Admin: 08/24/25 12:20 Dose: 5 mg Documented By: JOSE Sodium Chloride (0.9 % Sodium Chloride Flush 3 Ml Syringe) 3 ml IVFLUSH QSHIFT [facility] Last Admin: 08/24/25 08:11 Dose: Not Given Documented By: JOSE Non-Admin Reason: Previously Administered Comments: barcode wont scan Tramadol HCl (Tramadol Hcl 50 Mg Tablet) 50 mg PO Q6H PRN PRN Reason: Pain, Moderate(Pain Scale 4-6) Labs 08/24/25 06:36 08/24/25 06:36 Labs: Laboratory Results - last 24 hr 08/22/25 08/23/25 08/23/25 21:29 17:23 20:15 MCV MCH MCHC RDW Plt Count MPV Immature Gran % (Auto) Neut % (Auto) Lymph % (Auto) Stevens % (Auto) Eos % (Auto) Baso % (Auto) Lymph # (Auto) Stevens # (Auto) Eos # (Auto) Baso # (Auto) Abs Immat Gran (auto) Absolute Neuts (auto) Absolute Nucleated RBC Nucleated RBC % (auto) Anion Gap Estim Creat Clear Calc Estimated GFR POC Glucose 184 H 310 H Fasting Glucose Calcium Total Bilirubin AST ALT Alkaline Phosphatase Total Protein Albumin Stl C. cayetanensis PCR Stool Rotavirus A PCR Stl Adenov F 40/ PCR Stool Astrovirus (PCR) Stool Campylobacter PCR Stool Cryptosporidium PCR Stl Sh Tox Pr E STEC PCR Stool E coli O157 PCR Stl Enterotoxigenic E PCR Stool EPEC (PCR) Stool EAEC (PCR) Stl E. histolytica PCR Stool Giardia Lamblia PCR Stl P. shigelloides PCR Stool Salmonella PCR Stool Sapovirus (PCR) Stl Shigella/EIEC PCR St Y.enterocolitica PCR Stool Vibrio (PCR) Stl Vibrio cholerae PCR Stl Norovirus GI/GII PCR C. difficile Tox B Gene NEGATIVE 08/23/25 08/23/25 08/24/25 20:17 21:01 06:36 MCV 91.3 MCH 27.9 MCHC 30.6 L RDW 15.3 Plt Count 334 MPV 9.8 Immature Gran % (Auto) 0.4 Neut % (Auto) 79.8 H Lymph % (Auto) 15.5 L Stevens % (Auto) 2.8 Eos % (Auto) 1.1 Baso % (Auto) 0.4 Lymph # (Auto) 1.6 Stevens # (Auto) 0.3 Eos # (Auto) 0.1 Baso # (Auto) 0.0 Abs Immat Gran (auto) 0.04 H Absolute Neuts (auto) 8.3 Absolute Nucleated RBC 0.020 H Nucleated RBC % (auto) 0.2 Anion Gap 14 Estim Creat Clear Calc 32.5 Estimated GFR 36 POC Glucose 231 H Fasting Glucose 147 H Calcium 8.8 Total Bilirubin 0.2 AST 19 ALT < 6 Alkaline Phosphatase 103 Total Protein 6.0 L Albumin 2.4 L Stl C. cayetanensis PCR Not Detected Stool Rotavirus A PCR Not Detected Stl Adenov F 40 PCR Not Detected Stool Astrovirus (PCR) Not Detected Stool Campylobacter PCR Not Detected Stool Cryptosporidium PCR Not Detected Stl Sh Tox Pr E STEC PCR Not Detected Stool E coli O157 PCR Not applicable Stl Enterotoxigenic E PCR Not Detected Stool EPEC (PCR) Not Detected Stool EAEC (PCR) Not Detected Stl E. histolytica PCR Not Detected Stool Giardia Lamblia PCR Not Detected Stl P. shigelloides PCR Not Detected Stool Salmonella PCR Not Detected Stool Sapovirus (PCR) Not Detected Stl Shigella/EIEC PCR Not Detected St Y.enterocolitica PCR Not Detected Stool Vibrio (PCR) Not Detected Stl Vibrio cholerae PCR Not Detected Stl Norovirus GI/GII PCR Not Detected C. difficile Tox B Gene 08/24/25 08/24/25 07:03 11:16 MCV MCH MCHC RDW Plt Count MPV Immature Gran % (Auto) Neut % (Auto) Lymph % (Auto) Stevens % (Auto) Eos % (Auto) Baso % (Auto) Lymph # (Auto) Stevens # (Auto) Eos # (Auto) Baso # (Auto) Abs Immat Gran (auto) Absolute Neuts (auto) Absolute Nucleated RBC Nucleated RBC % (auto) Anion Gap Estim Creat Clear Calc Estimated GFR POC Glucose 139 H 189 H Fasting Glucose Calcium Total Bilirubin AST ALT Alkaline Phosphatase Total Protein Albumin Stl C. cayetanensis PCR Stool Rotavirus A PCR Stl Adenov F 40/41 PCR Stool Astrovirus (PCR) Stool Campylobacter PCR Stool Cryptosporidium PCR Stl Sh Tox Pr E STEC PCR Stool E coli O157 PCR Stl Enterotoxigenic E PCR Stool EPEC (PCR) Stool EAEC (PCR) Stl E. histolytica PCR Stool Giardia Lamblia PCR Stl P. shigelloides PCR Stool Salmonella PCR Stool Sapovirus (PCR) Stl Shigella/EIEC PCR St Y.enterocolitica PCR Stool Vibrio (PCR) Stl Vibrio cholerae PCR Stl Norovirus GI/GII PCR C. difficile Tox B Gene Microbiology Microbiology Results: Microbiology 08/23/25 01:43 Urine Culture - Preliminary Urine Catheterized - Straight Catheter Culture in progress. 08/22/25 21:47 Blood Culture - Preliminary Blood - Venous Proteus species 08/22/25 21:47 Blood Culture - Preliminary Blood - Venous No growth after 24 hours. Assessment and Plan (1) Acute and chronic respiratory failure with hypoxia: Status: Acute (2) Pneumonia: Status: Acute (3) Acute UTI: Status: Acute (4) Acute kidney injury superimposed on CKD: Status: Acute Plan Patient is a 54-year-old male with a past medical history significant for CHF, AFib, hypertension, CKD, Wernicke's encephalopathy, history alcohol abuse and type 2 diabetes, who presented to the ED from a nursing facility due to lethargy. Pt found to have acute hypoxia, PNA, UTI, and possible colitis on CT 1.Acute hypoxic respiratory failure in the setting of pneumonia, UTI (sepsis resolved ) - ceftriaxone/doxycycline/flagyl(2) - titrate oxygen as needed - urine culture pending - monitor CBC and BMP 2.GILMA on CKD, likely secondary to dehydration - creatinine trending downward -free water deficit calculated at 2 L -add D5W at 100 an hour -follow renal/divalent 3.Colitis versus IBD on CT -ceftriaxone/doxycycline/flagyl(2) - stool studies 4.Paroxysmal AFib -acceptable control on current therapies - hold eliquis due to GILMA , heparin 5.Type 2 diabetes - sliding scale insulin - diabetic diet Full code, MOSLT in chart Heparin Patient requires ongoing hospitalization pending full return of cultures in backdrop of acute UTI Quality Stroke Does the patient have a stroke diagnosis?: No VTE Prior VTE?: No VTE Risk Level:: Medical - moderate - high VTE Device Contraindication: Treatment Not Indicated VTE Drug Contraindication: N/A - Med Ordered
--- NOTE | 2025-08-24 16:22 | P.PNNP_ITS ---
Subjective Subjective Date of Service: 08/24/25 Interval history: Events noted. P.o. intake poor Physical Exam 2 Vital Signs: Vital Signs: Last Vital Signs Temp 97.4 F 08/24/25 15:27 Pulse 73 08/24/25 15:27 Resp 18 08/24/25 15:27 BP 133/90 H 08/24/25 15:27 Pulse Ox 94 08/24/25 15:27 O2 Del Method Room Air 08/24/25 15:27 O2 Flow Rate 2 08/24/25 07:31 Oxygen Flow Rate 10 08/22/25 21:02 BMI result Body Mass Index 19.5 Comfortable Neck supple no JVD. Lungs entry equal no rales. Heart S1-S2 heard no gallop or rub. Abdomen soft nontender. Neuro alert awake oriented. No asterixis. Extremities no edema. Const: Other: Somnolent but arousable confused at baseline Resp: Other: Clear to auscultation bilaterally. No rales rhonchi or wheezes Cardio: Other: No S4; positive S1-S2; no S3 murmurs rubs or gallops GI: Other: Soft nontender nondistended normoactive bowel sounds Extrem: Other: No edema bilaterally Objective Data Labs 08/24/25 06:36 08/24/25 06:36 Labs: Laboratory Results - last 24 hr 08/22/25 08/23/25 08/23/25 21:29 17:23 20:15 WBC RBC Hgb Hct MCV MCH MCHC RDW Plt Count MPV Immature Gran % (Auto) Neut % (Auto) Lymph % (Auto) [place] % (Auto) Eos % (Auto) Baso % (Auto) Lymph # (Auto) [place] # (Auto) Eos # (Auto) Baso # (Auto) Abs Immat Gran (auto) Absolute Neuts (auto) Absolute Nucleated RBC Nucleated RBC % (auto) Sodium Potassium Chloride Carbon Dioxide Anion Gap BUN Creatinine Estim Creat Clear Calc Estimated GFR POC Glucose 184 H 310 H Fasting Glucose Calcium Total Bilirubin AST ALT Alkaline Phosphatase Total Protein Albumin Stl C. cayetanensis PCR Stool Rotavirus A PCR Stl Adenov F 40/41 PCR Stool Astrovirus (PCR) Stool Campylobacter PCR Stool Cryptosporidium PCR Stl Sh Tox Pr E STEC PCR Stool E coli O157 PCR Stl Enterotoxigenic E PCR Stool EPEC (PCR) Stool EAEC (PCR) Stl E. histolytica PCR Stool Giardia Lamblia PCR Stl P. shigelloides PCR Stool Salmonella PCR Stool Sapovirus (PCR) Stl Shigella/EIEC PCR St Y.enterocolitica PCR Stool Vibrio (PCR) Stl Vibrio cholerae PCR Stl Norovirus GI/GII PCR C. difficile Tox B Gene NEGATIVE 08/23/25 08/23/25 08/24/25 20:17 21:01 06:36 WBC 10.4 RBC 3.33 L Hgb 9.3 L Hct 30.4 L MCV 91.3 MCH 27.9 MCHC 30.6 L RDW 15.3 Plt Count 334 MPV 9.8 Immature Gran % (Auto) 0.4 Neut % (Auto) 79.8 H Lymph % (Auto) 15.5 L [place] % (Auto) 2.8 Eos % (Auto) 1.1 Baso % (Auto) 0.4 Lymph # (Auto) 1.6 [place] # (Auto) 0.3 Eos # (Auto) 0.1 Baso # (Auto) 0.0 Abs Immat Gran (auto) 0.04 H Absolute Neuts (auto) 8.3 Absolute Nucleated RBC 0.020 H Nucleated RBC % (auto) 0.2 Sodium 149 H Potassium 4.0 D Chloride 119 H Carbon Dioxide 20 L Anion Gap 14 BUN 55 H Creatinine 1.95 H Estim Creat Clear Calc 32.5 Estimated GFR 36 POC Glucose 231 H Fasting Glucose 147 H Calcium 8.8 Total Bilirubin 0.2 AST 19 ALT < 6 Alkaline Phosphatase 103 Total Protein 6.0 L Albumin 2.4 L Stl C. cayetanensis PCR Not Detected Stool Rotavirus A PCR Not Detected Stl Adenov F 40/41 PCR Not Detected Stool Astrovirus (PCR) Not Detected Stool Campylobacter PCR Not Detected Stool Cryptosporidium PCR Not Detected Stl Sh Tox Pr E STEC PCR Not Detected Stool E coli O157 PCR Not applicable Stl Enterotoxigenic E PCR Not Detected Stool EPEC (PCR) Not Detected Stool EAEC (PCR) Not Detected Stl E. histolytica PCR Not Detected Stool Giardia Lamblia PCR Not Detected Stl P. shigelloides PCR Not Detected Stool Salmonella PCR Not Detected Stool Sapovirus (PCR) Not Detected Stl Shigella/EIEC PCR Not Detected St Y.enterocolitica PCR Not Detected Stool Vibrio (PCR) Not Detected Stl Vibrio cholerae PCR Not Detected Stl Norovirus GI/GII PCR Not Detected C. difficile Tox B Gene 08/24/25 08/24/25 07:03 11:16 WBC RBC Hgb Hct MCV MCH MCHC RDW Plt Count MPV Immature Gran % (Auto) Neut % (Auto) Lymph % (Auto) [place] % (Auto) Eos % (Auto) Baso % (Auto) Lymph # (Auto) [place] # (Auto) Eos # (Auto) Baso # (Auto) Abs Immat Gran (auto) Absolute Neuts (auto) Absolute Nucleated RBC Nucleated RBC % (auto) Sodium Potassium Chloride Carbon Dioxide Anion Gap BUN Creatinine Estim Creat Clear Calc Estimated GFR POC Glucose 139 H 189 H Fasting Glucose Calcium Total Bilirubin AST ALT Alkaline Phosphatase Total Protein Albumin Stl C. cayetanensis PCR Stool Rotavirus A PCR Stl Adenov F 40/41 PCR Stool Astrovirus (PCR) Stool Campylobacter PCR Stool Cryptosporidium PCR Stl Sh Tox Pr E STEC PCR Stool E coli O157 PCR Stl Enterotoxigenic E PCR Stool EPEC (PCR) Stool EAEC (PCR) Stl E. histolytica PCR Stool Giardia Lamblia PCR Stl P. shigelloides PCR Stool Salmonella PCR Stool Sapovirus (PCR) Stl Shigella/EIEC PCR St Y.enterocolitica PCR Stool Vibrio (PCR) Stl Vibrio cholerae PCR Stl Norovirus GI/GII PCR C. difficile Tox B Gene Microbiology Microbiology Results: Microbiology 08/23/25 01:43 Urine Catheterized - Straight Catheter Urine Culture - Preliminary Culture in progress. 08/22/25 21:47 Blood - Venous Blood Culture - Preliminary Proteus species 08/22/25 21:47 Blood - Venous Blood Culture - Preliminary No growth after 24 hours. 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 Keep intake more than output hyperkalemia: Secondary to acute kidney injury Improving Hypernatremia due to free water deficit Keep intake more than output with hypotonic fluids Shall follow along with the team Time Spent With Patient Time: Total time managing care of this patient today ____ minutes. Progress Note: Quality Stroke Does the patient have a stroke diagnosis?: No
[2025-08-24 16:23] LABS: Glucose, Whole Blood 267 mg/dL (60-115)
--- NOTE | 2025-08-24 18:52 | PC.NURSE ---
Pt has persistent hematuria, provider made aware and recommended for dorantes to be hand irrigated. dorantes was hand irrigated x2 on 08/24 during day shift. no clots were noted during irrigation and urine still dark punch colo post irrigation. urology consult ordered.
[2025-08-24 19:43] VITALS: BP 147/66; PULSE 70; RESP 16; TEMP 36.7; O2SAT 95
[2025-08-24 20:10] LABS: Glucose, Whole Blood 404 mg/dL (60-115)
[2025-08-24] MEDS: Insulin Glargine,Hum.rec.anlog 100 UNIT/ML 10 ML VIAL 25 UNIT SUBCUT (20:28)
[2025-08-24 23:19] VITALS: BP 137/100; PULSE 90; RESP 18; TEMP 36.2; O2SAT 96
[2025-08-25] MEDS: metroNIDAZOLE/NS 500 MG/100 ML PIGGYBACK 100 MG IV ×3 (00:10→16:22)
[2025-08-25] MEDS: 0.9 % Sodium Chloride Flush 3 ML SYRINGE IVFLUSH ×4 (00:13→20:50)
[2025-08-25 03:07] VITALS: BP 147/67; PULSE 80; RESP 18; TEMP 36.6; O2SAT 95
[2025-08-25] MEDS: oxyCODONE HCl Immed Release 5 MG TABLET PO ×3 (04:54→18:33)
[2025-08-25 06:54] LABS: MANUAL DIFF FLAG NO
[2025-08-25 07:03] LABS: Glucose, Whole Blood 291 mg/dL (60-115)
[2025-08-25 07:04] LABS: Hematocrit 30.9 % (42.0-52.0); Hemoglobin 9.5 g/dl (14.0-18.0); Imm Gran Abs Auto 0.07 X10*3/uL (0.00-0.03); Imm Gran Pct Auto 0.5 % (0.0-0.4); Lymphocytes Absolute Auto 1.9 X10*3/uL (1.2-4.9); Mean Corpuscular HGB Conc 30.7 g/dl (31.0-36.0); Mean Corpuscular Hemoglobin 27.5 pg (27.0-33.0); Mean Corpuscular Volume 89.6 fL (80.0-98.0); NRBC Abs Auto 0.000 X10*3/uL (0.0-0.012); NRBC Pct Auto 0.0 /100WBC (0.0-0.2); Platelet Count 330 X10*3/uL (160-400); Red Blood Count 3.45 X10*6/uL (4.60-5.80); White Blood Count 13.1 X10*3/uL (4.8-10.8)
[2025-08-25 07:14] VITALS: BP 160/84; PULSE 76; RESP 18; TEMP 36.7; O2SAT 96
[2025-08-25 07:22] LABS: Alanine Aminotransferase < 6 U/L (0-40); Albumin Level 2.4 g/dL (3.5-5.0); Alkaline Phosphatase 99 U/L (39-117); Anion Gap 14 (12-20); Aspartate Amino Transferase 14 U/L (5-37); Blood Urea Nitrogen 53 mg/dL (9-16); Calcium 8.2 mg/dL (8.4-10.2); Carbon Dioxide 19 mmol/L (22-29); Chloride 116 mmol/L (96-108); Creatinine Clr Calc Pharmacy 42.6; Estimated Glomerular Filt Rate 49; Potassium 3.5 mmol/L (3.3-5.1); Sodium 145 mmol/L (135-145); Total Protein 6.0 g/dL (6.5-8.0)
[2025-08-25 10:36] VITALS: BMI 19.5
--- NOTE | 2025-08-25 10:39 | MHC.CLN ---
PT WITH INCREASED NUTRITION RISK R/T PRESSURE INJURY DIET RX: 2000DM RECOMMEND ADDING ENSURE MAX BID TO PROMOTE WOUND HEALING SUPP TO PROVIDE 300KCALS, 60G PROTEIN MONITOR PO INTAKE AND ENCOURAGE SUPPLEMENTS SEE FULL ASSESSMENT
[2025-08-25 11:09] LABS: Glucose, Whole Blood 247 mg/dL (60-115)
[2025-08-25 11:43] VITALS: BP 137/64; PULSE 72; RESP 18; TEMP 36.6; O2SAT 99
--- NOTE | 2025-08-25 13:04 | P.PNNP_ITS ---
Subjective Subjective Date of Service: 08/25/25 Interval history: Events noted. P.o. intake poor Physical Exam 2 Vital Signs: Vital Signs: Last Vital Signs Temp 97.9 F 08/25/25 11:43 Pulse 72 08/25/25 11:43 Resp 18 08/25/25 11:43 BP 137/64 08/25/25 11:43 Pulse Ox 99 08/25/25 11:43 O2 Del Method Room Air 08/25/25 11:43 O2 Flow Rate 2 08/24/25 07:31 Oxygen Flow Rate 10 08/22/25 21:02 BMI result Body Mass Index 19.5 Const: Other: Somnolent but arousable confused at baseline Resp: Other: Clear to auscultation bilaterally. No rales rhonchi or wheezes Cardio: Other: No S4; positive S1-S2; no S3 murmurs rubs or gallops GI: Other: Soft nontender nondistended normoactive bowel sounds Extrem: Other: No edema bilaterally Objective Data Labs 08/27/25 09:16 08/27/25 09:16 Labs: Laboratory Results - last 24 hr 08/24/25 08/24/25 08/25/25 16:15 19:55 06:32 WBC 13.1 H RBC 3.45 L Hgb 9.5 L Hct 30.9 L MCV 89.6 MCH 27.5 MCHC 30.7 L RDW 15.5 Plt Count 330 MPV 10.5 Immature Gran % (Auto) 0.5 H Neut % (Auto) 78.6 H Lymph % (Auto) 14.8 L [place] % (Auto) 3.4 Eos % (Auto) 1.9 Baso % (Auto) 0.8 Lymph # (Auto) 1.9 [place] # (Auto) 0.5 Eos # (Auto) 0.3 Baso # (Auto) 0.1 Abs Immat Gran (auto) 0.07 H Absolute Neuts (auto) 10.3 H Absolute Nucleated RBC 0.000 Nucleated RBC % (auto) 0.0 Sodium 145 Potassium 3.5 Chloride 116 H Carbon Dioxide 19 L Anion Gap 14 BUN 53 H Creatinine 1.49 H Estim Creat Clear Calc 42.6 Estimated GFR 49 POC Glucose 267 H 404 H* Fasting Glucose 303 H Calcium 8.2 L D Total Bilirubin 0.1 AST 14 ALT < 6 Alkaline Phosphatase 99 Total Protein 6.0 L Albumin 2.4 L 08/25/25 08/25/25 06:51 11:01 WBC RBC Hgb Hct MCV MCH MCHC RDW Plt Count MPV Immature Gran % (Auto) Neut % (Auto) Lymph % (Auto) [place] % (Auto) Eos % (Auto) Baso % (Auto) Lymph # (Auto) [place] # (Auto) Eos # (Auto) Baso # (Auto) Abs Immat Gran (auto) Absolute Neuts (auto) Absolute Nucleated RBC Nucleated RBC % (auto) Sodium Potassium Chloride Carbon Dioxide Anion Gap BUN Creatinine Estim Creat Clear Calc Estimated GFR POC Glucose 291 H 247 H Fasting Glucose Calcium Total Bilirubin AST ALT Alkaline Phosphatase Total Protein Albumin Microbiology Microbiology Results: Microbiology 08/23/25 01:43 Urine Catheterized - Straight Catheter Urine Culture - Final 08/22/25 21:47 Blood - Venous Blood Culture - Final Proteus mirabilis 08/22/25 21:47 Blood - Venous Blood Culture - Preliminary No growth after 48 hours. 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 Keep intake more than output hyperkalemia: Secondary to acute kidney injury Improving Hypernatremia due to free water deficit Keep intake more than output with hypotonic fluids Shall follow along with the team Time Spent With Patient Time: Total time managing care of this patient today ____ minutes. Progress Note: Quality Stroke Does the patient have a stroke diagnosis?: No
--- NOTE | 2025-08-25 14:43 | HO.WOUND ---
Wound Consult: Follow up 54 yr old male admitted [place] [facility] [place] - See progress notes and H&P for detailed history. Wound follow up for coccyx. Patient agreeable to assessment and photo documentation. sacrum/coccyx Etiology: sacrum/coccyx deep tissue pressure injury Present on Admission - now declaring with scattered open areas Measurements: 10cm x 10cm x 0.1cm Wound Bed: areas of intact maroon/purple nonblanching skin, with areas of superficial skin loss deep red/purple base all set in area of scar tissue Drainage / Odor: scant serosanguineous, no odor Edges: ? irregular Ellie wound: ? No Induration, Fluctuance or Warmth noted Pain: none Goals of Treatment: ? triad to provide an occlusive dressing for autolytic debridment, to allow moist wound healing with absorption of mild exudate, to minimize contamination of urine/stool or bacteria, and to soothe and protect ellie wound skin - cover with foam dressing- if having to change foam greater than daily, switch to triad paste only. feet not assessed today- see note from 08/24/25 - will assess at next follow up Recommendations: 1. Turn and Reposition every 2 hours and as needed for patient comfort. Use pillows or wedges to support off loading positions. 2. Off Load all bony prominences with use of pillows and heel boots if needed. Apply Preventative foams where needed. 3. Monitor for incontinence and moisture control, use barrier creams when needed for prevention and treatment. 4. Provide adequate and supplemental nutrition. 5. Order or Continue low air loss mattress. 6. When applicable maintain blood glucose levels per Providers order. Sacrum/Coccyx/buttocks: Off Load Pressure with Q2 hr turns and use of pillows - Cleanse with PH balance spray or wipes, pat dry. ?Apply thin layer of Triad to wound bed. Do not remove all of paste between applications as this may cause further skin damage.? Cover with foam dressing to aid in off loading and protection from friction. Change every 3 days and PRN. If changing foam greater than daily switch to triad paste only, BID and prn with incontinent episodes. Re-consult wound care Nurse for wound deterioration or wound changes.
--- NOTE | 2025-08-25 15:07 | HO.PM.IMPN ---
Subjective Subjective Date of Service: 08/25/25 Interval History: No acute issues overnight. Urine slightly clear Review of Systems Unable to obtain Physical Exam Vital Signs: Vital Signs: Last Vital Signs Temp 97.9 F 08/25/25 11:43 Pulse 72 08/25/25 11:43 Resp 18 08/25/25 11:43 BP 137/64 08/25/25 11:43 Pulse Ox 99 08/25/25 11:43 O2 Del Method Room Air 08/25/25 11:43 O2 Flow Rate 2 08/24/25 07:31 Oxygen Flow Rate 10 08/22/25 21:02 BMI result Body Mass Index 19.5 Const: Other: Somnolent but arousable confused at baseline Resp: Other: Clear to auscultation bilaterally. No rales rhonchi or wheezes Cardio: Other: No S4; positive S1-S2; no S3 murmurs rubs or gallops GI: Other: Soft nontender nondistended normoactive bowel sounds Extrem: Other: No edema bilaterally Objective Data Active Medications Acetaminophen (Acetaminophen 325 Mg Tablet) 975 mg PO Q6H PRN PRN Reason: Pain, Mild 1-3,fever,headache Last Admin: 08/25/25 07:48 Dose: 975 mg Documented By: JOSE Calcium Carbonate (Calcium Carbonate 750 Mg Tab.Chew) 750 mg PO Q4H PRN PRN Reason: Heartburn Dextrose (Dextrose 50 % 25 Gm/50 Ml Syringe) 25 gm IVPUSH Q15M PRN; Protocol PRN Reason: per Hypoglycemia Standing Ord. Glucose (Glucose Gel 15 Gm Gel..Gram.) 15 gm PO Q15M PRN; Protocol PRN Reason: per Hypoglycemia Standing Ord. Heparin Sodium (Porcine) (Heparin Sodium,Porcine 5,000 Unit/Ml Vial) 5,000 unit SUBCUT Q8H [facility] Last Admin: 08/25/25 11:28 Dose: Not Given Documented By: JOSE Non-Admin Reason: hold per Ceftriaxone Sodium 2 gm/ (Sodium Chloride) 50 mls @ 100 mls/hr IV Q24H [facility] Last Infusion: 08/25/25 00:10 Dose: Infused Documented By: JOSE Doxycycline Hyclate 100 mg/ (Sodium Chloride) 250 mls @ 166.67 mls/hr IV BID [facility] Last Infusion: 08/25/25 11:28 Dose: Infused Documented By: JOSE Metronidazole (Flagyl) 500 mg in 100 mls @ 100 mls/hr IV Q8H [facility] Last Infusion: 08/25/25 08:57 Dose: Infused Documented By: JOSE Dextrose (D5w) 1,000 mls @ 100 mls/hr IVCONT .Q10H [facility] Last Admin: 08/25/25 12:16 Dose: Not Given Documented By: JOSE Non-Admin Reason: too early Insulin Glargine (Insulin Glargine,Hum.Rec.Anlog 100 Unit/Ml 10 Ml Vial) 25 unit SUBCUT BEDTIME [facility] Last Admin: 08/24/25 20:28 Dose: 25 unit Documented By: JOSE Insulin Human Lispro (Insulin Lispro 100 Unit/Ml 3 Ml Vial) 0 unit SUBCUT QIDACHS [facility]; Protocol Last Admin: 08/25/25 12:16 Dose: 4 unit Documented By: JOSE Magnesium Hydroxide (Milk Of Magnesia 30 Ml Oral.Susp) 30 ml PO DAILY PRN PRN Reason: Constipation Melatonin (Melatonin 3 Mg Tablet) 6 mg PO BEDTIME PRN PRN Reason: Insomnia Ondansetron HCl (Ondansetron Hcl 4 Mg/2 Ml Vial) 4 mg IVPUSH Q8H PRN PRN Reason: Nausea and Vomiting Oxycodone HCl (Oxycodone Hcl Immed Release 5 Mg Tablet) 5 mg PO Q6H PRN PRN Reason: Pain, Severe (Pain Scale 7-10) Last Admin: 08/25/25 12:16 Dose: 5 mg Documented By: JOSE Sodium Chloride (0.9 % Sodium Chloride Flush 3 Ml Syringe) 3 ml IVFLUSH QSHIFT [facility] Last Admin: 08/25/25 07:49 Dose: 3 ml Documented By: JOSE Tramadol HCl (Tramadol Hcl 50 Mg Tablet) 50 mg PO Q6H PRN PRN Reason: Pain, Moderate(Pain Scale 4-6) Labs 08/25/25 06:32 08/25/25 06:32 Labs: Laboratory Results - last 24 hr 08/24/25 08/24/25 08/25/25 16:15 19:55 06:32 MCV 89.6 MCH 27.5 MCHC 30.7 L RDW 15.5 Plt Count 330 MPV 10.5 Immature Gran % (Auto) 0.5 H Neut % (Auto) 78.6 H Lymph % (Auto) 14.8 L [place] % (Auto) 3.4 Eos % (Auto) 1.9 Baso % (Auto) 0.8 Lymph # (Auto) 1.9 [place] # (Auto) 0.5 Eos # (Auto) 0.3 Baso # (Auto) 0.1 Abs Immat Gran (auto) 0.07 H Absolute Neuts (auto) 10.3 H Absolute Nucleated RBC 0.000 Nucleated RBC % (auto) 0.0 Anion Gap 14 Estim Creat Clear Calc 42.6 Estimated GFR 49 POC Glucose 267 H 404 H* Fasting Glucose 303 H Calcium 8.2 L D Total Bilirubin 0.1 AST 14 ALT < 6 Alkaline Phosphatase 99 Total Protein 6.0 L Albumin 2.4 L 08/25/25 08/25/25 06:51 11:01 MCV MCH MCHC RDW Plt Count MPV Immature Gran % (Auto) Neut % (Auto) Lymph % (Auto) [place] % (Auto) Eos % (Auto) Baso % (Auto) Lymph # (Auto) [place] # (Auto) Eos # (Auto) Baso # (Auto) Abs Immat Gran (auto) Absolute Neuts (auto) Absolute Nucleated RBC Nucleated RBC % (auto) Anion Gap Estim Creat Clear Calc Estimated GFR POC Glucose 291 H 247 H Fasting Glucose Calcium Total Bilirubin AST ALT Alkaline Phosphatase Total Protein Albumin Microbiology Microbiology Results: Microbiology 08/23/25 01:43 Urine Culture - Final Urine Catheterized - Straight Catheter 08/22/25 21:47 Blood Culture - Final Blood - Venous Proteus mirabilis 08/22/25 21:47 Blood Culture - Preliminary Blood - Venous No growth after 48 hours. Assessment and Plan (1) Acute respiratory failure with hypoxia: Status: Acute (2) Pneumonia: Status: Acute (3) Acute UTI: Status: Acute Plan Patient is a 54-year-old male with a past medical history significant for CHF, AFib, hypertension, CKD, Wernicke's encephalopathy, history alcohol abuse and type 2 diabetes, who presented to the ED from a nursing facility due to lethargy. Pt found to have acute hypoxia, PNA, UTI, and possible colitis on CT 1.Acute hypoxic respiratory failure in the setting of pneumonia, UTI (sepsis resolved ) - ceftriaxone/doxycycline/flagyl(3) - titrate oxygen as needed - urine culture greater than 100,000 colonies mixed chai. Continue antibiotics until urine clears - monitor CBC and BMP 2.GILMA on CKD, likely secondary to dehydration - creatinine trending downward -free water deficit calculated at 2 L -add D5W at 100 an hour -follow renal/divalent 3.Colitis versus IBD on CT -ceftriaxone/doxycycline/flagyl(2) - stool studies 4.Paroxysmal AFib -acceptable control on current therapies - hold eliquis due to GILMA , heparin 5.Type 2 diabetes - sliding scale insulin - diabetic diet Full code, MOSLT in chart Heparin Patient requires ongoing hospitalization pending full return of cultures in backdrop of acute UTI Quality Stroke Does the patient have a stroke diagnosis?: No VTE Prior VTE?: No VTE Risk Level:: Medical - moderate - high VTE Device Contraindication: Treatment Not Indicated VTE Drug Contraindication: N/A - Med Ordered
[2025-08-25 15:15] VITALS: BP 156/70; PULSE 73; RESP 18; TEMP 36.6; O2SAT 97
[2025-08-25] MEDS: Dextrose 5 % and 0.45 % NaCl 1,000 ML 100 ML IVCONT (15:31)
[2025-08-25 16:34] LABS: Glucose, Whole Blood 332 mg/dL (60-115)
[2025-08-25 19:52] VITALS: BP 158/72; PULSE 63; RESP 18; TEMP 36.4; O2SAT 95
[2025-08-25 20:22] LABS: Glucose, Whole Blood 188 mg/dL (60-115)
[2025-08-25] MEDS: Insulin Glargine,Hum.rec.anlog 100 UNIT/ML 10 ML VIAL 25 UNIT SUBCUT (20:39)
[2025-08-25 23:53] VITALS: BP 169/77; PULSE 63; RESP 16; TEMP 36.5; O2SAT 94
[2025-08-26] MEDS: metroNIDAZOLE/NS 500 MG/100 ML PIGGYBACK 100 MG IV ×2 (01:14→08:58)
[2025-08-26 03:42] VITALS: BP 149/78; PULSE 69; RESP 16; TEMP 36.3; O2SAT 97
[2025-08-26] MEDS: Dextrose 5 % and 0.45 % NaCl 1,000 ML 100 ML IVCONT ×2 (06:04→15:41)
[2025-08-26 07:31] LABS: Glucose, Whole Blood 197 mg/dL (60-115)
[2025-08-26 08:00] VITALS: BP 135/80; PULSE 72; RESP 20; TEMP 36.4; O2SAT 96
--- NOTE | 2025-08-26 08:22 | P.CDIM_ITS ---
PROVIDER RESPONSE TEXT: To clarify, the appropriate diagnosis supported by the clinical indicators: Clinically unable to determine (explain): No echo on file QUERY TEXT: PHYSICIAN'S DOCUMENTATION REQUEST Date of Query: 08/25/2025 09:22 AM EDT Patient Name: Ryne Duncan Admit Date: 08/23/2025 Dear Feliciano Camejo DO, A review of the medical record indicates additional documentation may be needed. Please review below and update the documentation accordingly. Clinical Indicators: PMH: CHF Carvedilol po BID Please provide further specificity regarding the most likely type and acuity of CHF you are evaluating, treating, or monitoring. Systolic Please specify if Acute, Chronic, or Acute on chronic, or Unable to determine Diastolic Please specify if Acute, Chronic, or Acute on chronic, or Unable to determine Combined Systolic/Diastolic Please specify if Acute, Chronic, or Acute on chronic, or Unable to determine Other (explain) Clinically unable to determine (explain) Thank you, Ambreen Arciniega RN Use of terms such as suspected, likely, concern for, or probable (associated with a specific diagnosis that is being evaluated, monitored, or treated as if it exists) are acceptable and can be coded in the inpatient setting, when documented at the time of discharge. Please use your independent medical judgment in providing your response. THIS QUERY IS PART OF THE PERMANENT MEDICAL RECORD
--- NOTE | 2025-08-26 08:26 | P.CDIM_ITS ---
PROVIDER RESPONSE TEXT: To clarify, the appropriate diagnosis supported by the clinical indicators: CKD, stage 3 QUERY TEXT: PHYSICIAN'S DOCUMENTATION REQUEST Date of Query: 08/25/2025 09:24 AM EDT Patient Name: Ryne Duncan Admit Date: 08/23/2025 Dear Feliciano Camejo DO, A review of the medical record indicates additional documentation may be needed. Please review below and update the documentation accordingly. Clinical Indicators: creatinine 1.49 eGFR 49.0 documented GILMA on CKD Please clarify which of the following accurately represents the stage of the patient's renal status: CKD, stage 1 CKD, stage 2 CKD, stage 3 CKD, stage 4 CKD, stage 5 Other (explain) Clinically unable to determine (explain) Thank you, Ambreen Arciniega RN Use of terms such as suspected, likely, concern for, or probable (associated with a specific diagnosis that is being evaluated, monitored, or treated as if it exists) are acceptable and can be coded in the inpatient setting, when documented at the time of discharge. Please use your independent medical judgment in providing your response. THIS QUERY IS PART OF THE PERMANENT MEDICAL RECORD
[2025-08-26] MEDS: oxyCODONE HCl Immed Release 5 MG TABLET PO (09:40)
[2025-08-26 11:23] LABS: Glucose, Whole Blood 193 mg/dL (60-115)
[2025-08-26 12:00] VITALS: BP 152/63; PULSE 68; RESP 16; TEMP 36.1; O2SAT 98
--- NOTE | 2025-08-26 13:31 | MHC.CLN ---
F/U PT WITH INCREASED NUTRITION RISK R/T PRESSURE INJURY PO INTAKE VARIES BETWEEN 25-75% DIET RX: 2000DM RECEIVING ENSURE MAX BID TO PROMOTE WOUND HEALING SUPP PROVIDES 300KCALS, 60G PROTEIN MONITOR PO INTAKE AND ENCOURAGE SUPPLEMENTS
[2025-08-26 15:07] VITALS: BP 154/72; PULSE 63; RESP 16; TEMP 36.7; O2SAT 98
--- NOTE | 2025-08-26 15:11 | P.PNIM_ITS ---
Subjective Subjective Date of Service: 08/26/25 Interval History: No acute issues overnight. Remains afebrile Review of Systems Unable to obtain Physical Exam 2 Vital Signs: Vital Signs: Last Vital Signs Temp 98.1 F 08/26/25 15:07 Pulse 63 08/26/25 15:07 Resp 16 08/26/25 15:07 BP 154/72 H 08/26/25 15:07 Pulse Ox 98 08/26/25 15:07 O2 Del Method Room Air 08/26/25 15:07 O2 Flow Rate 2 08/24/25 07:31 Oxygen Flow Rate 10 08/22/25 21:02 BMI result Body Mass Index 19.5 Const: Other: Somnolent but arousable confused at baseline Resp: Other: Clear to auscultation bilaterally. No rales rhonchi or wheezes Cardio: Other: No S4; positive S1-S2; no S3 murmurs rubs or gallops GI: Other: Soft nontender nondistended normoactive bowel sounds Extrem: Other: No edema bilaterally Objective Data Active Medications Acetaminophen (Acetaminophen 325 Mg Tablet) 975 mg PO Q6H PRN PRN Reason: Pain, Mild 1-3,fever,headache Last Admin: 08/25/25 16:22 Dose: 975 mg Documented By: KATY Calcium Carbonate (Calcium Carbonate 750 Mg Tab.Chew) 750 mg PO Q4H PRN PRN Reason: Heartburn Last Admin: 08/25/25 17:44 Dose: 750 mg Documented By: KATY Carvedilol (Carvedilol 12.5 Mg Tablet) 12.5 mg PO BID [facility]; Protocol Last Admin: 08/26/25 08:50 Dose: 12.5 mg Documented By: KAMLESHOPEALLISON Dextrose (Dextrose 50 % 25 Gm/50 Ml Syringe) 25 gm IVPUSH Q15M PRN; Protocol PRN Reason: per Hypoglycemia Standing Ord. Doxycycline Monohydrate (Doxycycline Monohydrate 100 Mg Capsule) 100 mg PO BID [facility] Glucose (Glucose Gel 15 Gm Gel..Gram.) 15 gm PO Q15M PRN; Protocol PRN Reason: per Hypoglycemia Standing Ord. Heparin Sodium (Porcine) (Heparin Sodium,Porcine 5,000 Unit/Ml Vial) 5,000 unit SUBCUT Q8H [facility] Last Admin: 08/26/25 15:02 Dose: Not Given Documented By: LISSETT Non-Admin Reason: Patient Refused Ceftriaxone Sodium 2 gm/ (Sodium Chloride) 50 mls @ 100 mls/hr IV Q24H [facility] Last Infusion: 08/26/25 01:11 Dose: Infused Documented By: JOSE Dextrose/Sodium Chloride (D51/2ns) 1,000 mls @ 100 mls/hr IVCONT .Q10H [facility] Last Admin: 08/26/25 12:25 Dose: Not Given Documented By: LISSETT Non-Admin Reason: IV Running Insulin Glargine (Insulin Glargine,Hum.Rec.Anlog 100 Unit/Ml 10 Ml Vial) 25 unit SUBCUT BEDTIME [facility] Last Admin: 08/25/25 20:39 Dose: 25 unit Documented By: JOSE Insulin Human Lispro (Insulin Lispro 100 Unit/Ml 3 Ml Vial) 0 unit SUBCUT QIDACHS [facility]; Protocol Last Admin: 08/26/25 11:43 Dose: 2 unit Documented By: LISSETT Magnesium Hydroxide (Milk Of Magnesia 30 Ml Oral.Susp) 30 ml PO DAILY PRN PRN Reason: Constipation Melatonin (Melatonin 3 Mg Tablet) 6 mg PO BEDTIME PRN PRN Reason: Insomnia Metronidazole (Metronidazole 500 Mg Tablet) 500 mg PO TID CELINE Ondansetron HCl (Ondansetron Hcl 4 Mg/2 Ml Vial) 4 mg IVPUSH Q8H PRN PRN Reason: Nausea and Vomiting Last Admin: 08/25/25 17:44 Dose: 4 mg Documented By: KATY Oxycodone HCl (Oxycodone Hcl Immed Release 5 Mg Tablet) 5 mg PO Q6H PRN PRN Reason: Pain, Severe (Pain Scale 7-10) Last Admin: 08/26/25 09:40 Dose: 5 mg Documented By: RAQUEL Sodium Chloride (0.9 % Sodium Chloride Flush 3 Ml Syringe) 3 ml IVFLUSH QSHIFT [facility] Last Admin: 08/26/25 15:05 Dose: Not Given Documented By: LISSETT Non-Admin Reason: IV Running Tramadol HCl (Tramadol Hcl 50 Mg Tablet) 50 mg PO Q6H PRN PRN Reason: Pain, Moderate(Pain Scale 4-6) Labs 08/25/25 06:32 08/25/25 06:32 Labs: Laboratory Results - last 24 hr 08/25/25 08/25/25 08/26/25 16:30 20:16 07:21 POC Glucose 332 H 188 H 197 H 08/26/25 11:16 POC Glucose 193 H Microbiology Microbiology Results: Microbiology 08/23/25 01:43 Urine Culture - Final Urine Catheterized - Straight Catheter Assessment and Plan (1) Acute UTI: Status: Acute (2) Acute kidney injury superimposed on CKD: Status: Acute Plan Patient is a 54-year-old male with a past medical history significant for CHF, AFib, hypertension, CKD, Wernicke's encephalopathy, history alcohol abuse and type 2 diabetes, who presented to the ED from a nursing facility due to lethargy. Pt found to have acute hypoxia, PNA, UTI, and possible colitis on CT 1.Acute hypoxic respiratory failure in the setting of pneumonia, UTI (sepsis resolved ) - ceftriaxone/doxycycline/flagyl(4)... Switch to p.o. - titrate oxygen as needed - urine culture greater than 100,000 colonies mixed chai. DC Arellano/voiding trial - monitor CBC and BMP 2.GILMA on CKD, likely secondary to dehydration - creatinine trending downward -free water deficit calculated at 2 L -add D5W at 100 an hour -follow renal/divalent 3.Colitis versus IBD on CT -ceftriaxone/doxycycline/flagyl(2) - stool studies 4.Paroxysmal AFib -acceptable control on current therapies - hold eliquis due to GILMA , heparin 5.Type 2 diabetes - sliding scale insulin - diabetic diet Full code, MOSLT in chart Heparin Patient requires ongoing hospitalization pending full return of cultures in backdrop of acute UTI Quality Stroke Does the patient have a stroke diagnosis?: No VTE Prior VTE?: No VTE Risk Level:: Medical - moderate - high VTE Device Contraindication: Treatment Not Indicated VTE Drug Contraindication: N/A - Med Ordered
[2025-08-26 16:12] LABS: Glucose, Whole Blood 180 mg/dL (60-115)
--- NOTE | 2025-08-26 18:49 | P.PNNP_ITS ---
Subjective Subjective Date of Service: 08/26/25 Interval history: No acute issues overnight. Remains afebrile; All recent data reviewed Physical Exam 2 Vital Signs: Vital Signs: Last Vital Signs Temp 98.1 F 08/26/25 15:07 Pulse 63 08/26/25 15:07 Resp 16 08/26/25 15:07 BP 154/72 H 08/26/25 15:07 Pulse Ox 98 08/26/25 15:07 O2 Del Method Room Air 08/26/25 15:07 O2 Flow Rate 2 08/24/25 07:31 Oxygen Flow Rate 10 08/22/25 21:02 BMI result Body Mass Index 19.5 Const: General: no acute distress Eyes: EOM: EOMs intact bilaterally Neck: Neck: Yes supple Resp: Auscultation: diminished lung sounds Cardio: Rate: regular rate GI: Palpation (GI): Soft to palpation Neuro: General: moves all extremities Objective Data Labs 08/25/25 06:32 08/25/25 06:32 Labs: Laboratory Results - last 24 hr 08/25/25 08/26/25 08/26/25 20:16 07:21 11:16 POC Glucose 188 H 197 H 193 H 08/26/25 16:06 POC Glucose 180 H Microbiology Microbiology Results: Microbiology 08/23/25 01:43 Urine Catheterized - Straight Catheter Urine Culture - Final 08/22/25 21:47 Blood - Venous Blood Culture - Final Proteus mirabilis 08/22/25 21:47 Blood - Venous Blood Culture - Preliminary No growth after 48 hours. 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 Labs AM; Shall F/U closely Progress Note: Quality Stroke Does the patient have a stroke diagnosis?: No
[2025-08-26 19:23] VITALS: BP 155/72; PULSE 64; RESP 16; TEMP 36.6; O2SAT 94
[2025-08-26 20:45] LABS: Glucose, Whole Blood 185 mg/dL (60-115)
[2025-08-26] MEDS: Insulin Glargine,Hum.rec.anlog 100 UNIT/ML 10 ML VIAL 25 UNIT SUBCUT (23:04)
[2025-08-26 23:08] LABS: Glucose, Whole Blood 190 mg/dL (60-115)
[2025-08-26 23:33] VITALS: BP 153/72; BP 157/72; PULSE 71; RESP 18; TEMP 36.6; O2SAT 97
[2025-08-27] VITALS (7 sets, daily range): BP systolic 130–167; BP diastolic 69–80; PULSE 65–90; RESP 18; TEMP 36.2–36.7; O2SAT 96–99
[2025-08-27] MEDS: Dextrose 5 % and 0.45 % NaCl 1,000 ML 100 ML IVCONT (02:22)
[2025-08-27 07:33] LABS: Glucose, Whole Blood 233 mg/dL (60-115)
[2025-08-27 09:42] LABS: MANUAL DIFF FLAG NO
[2025-08-27 09:46] LABS: Hematocrit 31.2 % (42.0-52.0); Hemoglobin 9.6 g/dl (14.0-18.0); Imm Gran Abs Auto 0.16 X10*3/uL (0.00-0.03); Imm Gran Pct Auto 1.5 % (0.0-0.4); Lymphocytes Absolute Auto 2.4 X10*3/uL (1.2-4.9); Mean Corpuscular HGB Conc 30.8 g/dl (31.0-36.0); Mean Corpuscular Hemoglobin 27.9 pg (27.0-33.0); Mean Corpuscular Volume 90.7 fL (80.0-98.0); NRBC Abs Auto 0.000 X10*3/uL (0.0-0.012); NRBC Pct Auto 0.0 /100WBC (0.0-0.2); Platelet Count 403 X10*3/uL (160-400); Red Blood Count 3.44 X10*6/uL (4.60-5.80); White Blood Count 10.6 X10*3/uL (4.8-10.8)
[2025-08-27 10:47] LABS: Alanine Aminotransferase 6 U/L (0-40); Albumin Level 2.1 g/dL (3.5-5.0); Alkaline Phosphatase 84 U/L (39-117); Anion Gap 8 (12-20); Aspartate Amino Transferase 19 U/L (5-37); Blood Urea Nitrogen 23 mg/dL (9-16); Calcium 7.5 mg/dL (8.4-10.2); Carbon Dioxide 22 mmol/L (22-29); Chloride 116 mmol/L (96-108); Creatinine Clr Calc Pharmacy 76.5; Estimated Glomerular Filt Rate > 60; Potassium 2.9 mmol/L (3.3-5.1); Sodium 143 mmol/L (135-145); Total Protein 5.4 g/dL (6.5-8.0)
[2025-08-27] MEDS: Potassium Chloride ER 20 MEQ TAB.ER.PRT 40 MEQ PO ×2 (11:04→22:46)
--- NOTE | 2025-08-27 11:19 | MHC.CM.PN ---
Addendum entered by Rossy Ashby 08/27/25 16:01: Worm Picker/Gayatri spoke with Mother/HCP/Halie and informed her of the dc being canceled for today. Addendum entered by Rossy Ashby 08/27/25 14:56: Per MD, dc scheduled for today has been canceled. Transport was cancelled and [facility] has been notified. Original Note: Per MD in [facility]OUN[facility], Patient is medically cleared for dc to SNF today. Patient will return to [facility] today at 2:30PM, via [facility] booking ID is [id number]). PER MD, CM should coordinate dc with HCP, not Patient; CM spoke with Mother/HCP/Halie @ [phone], informed her of the dc plan and addressed the IMM with her (original will be mailed certified letter to Mother at [address] [place] [address], in [place] [phone] and a copy has been placed on the chart).
[2025-08-27 11:33] LABS: Glucose, Whole Blood 210 mg/dL (60-115)
--- NOTE | 2025-08-27 12:45 | PM.DS ---
DS: Providers Provider Date of Service: 08/27/25 Date of admission: 08/23/25 06:15 Date of discharge: 08/27/25 Primary care physician: Fatoumata Beth MD Consults: 08/23/25 06:32 Consult to Nephrology Routine Consulting Provider: [facility] Reason for consultation: cr 4.22, baseline unknown, hydonephrosis on CT Has provider been notified: No 08/23/25 17:44 Consult to Wound Care Routine Consulting Provider: [facility] Reason for consultation: pressure injury to buttocks, left heel 08/24/25 17:33 Consult to Urology Routine Consulting Provider: [facility] Reason for consultation: hematuria Has provider been notified: No DS: Diagnosis Discharge Diagnosis (1) Acute kidney injury superimposed on CKD: Status: Acute (2) Acute UTI: Status: Acute DS: Summary Hospital Course Hospital Course: 54-year-old male with a past medical history significant for CHF, AFib, hypertension, CKD, Wernicke's encephalopathy, history alcohol abuse and type 2 diabetes, who presented to the ED from a nursing facility due to lethargy. The patient arrived his O2 saturation was in the low 80s and he is somnolent, unable to provide any history. Urine is malodorous and positive for UTI. creatinine of 4.22, 0.77 upon [facility] chart review. Imaging revealing bilateral pneumonia, possible colitis versus IBD, cystitis and mild left hydronephrosis. He is also hyperkalemic and was treated in the ED with albuterol, calclium, insulin, dextrose, and bicarb. Hospitral Course Patient was admitted to telemetry where monitor failed to demonstrate any acute dysrhythmias. He was covered broadly for both his UTI and pulmonary info traits. Arellano was changed in ER prior to specimen collection. He was seen in consultation by Nephrology secondary to acute kidney injury. This responded well to volume repletion. Over the course of his hospitalization, his kidney function continued to improve and his urine cleared from initial presentation. At this point in time he is medically acceptable for discharge and will complete a course of Augmentin. Time Attestation Discharge Coordination Time (in mins): 35 Quality: Safe Use of Opioids Does Pt have an Active Cancer Diagnosis on the Problem List?: No Quality: Stroke Does the patient have a stroke diagnosis?: No Physical Exam Vital Signs: Vital Signs: Last Vital Signs Temp 97.8 F 08/27/25 11:20 Pulse 65 08/27/25 11:20 Resp 18 08/27/25 11:20 BP 157/80 H 08/27/25 11:20 Pulse Ox 99 08/27/25 11:20 O2 Del Method Room Air 08/27/25 11:20 O2 Flow Rate 2 08/24/25 07:31 Oxygen Flow Rate 10 08/22/25 21:02 BMI result Body Mass Index 19.5 Const: Other: Somnolent but arousable confused at baseline Resp: Other: Clear to auscultation bilaterally. No rales rhonchi or wheezes Cardio: Other: No S4; positive S1-S2; no S3 murmurs rubs or gallops GI: Other: Soft nontender nondistended normoactive bowel sounds Extrem: Other: No edema bilaterally DS: Data Data Completed and Pending Labs on day of discharge: Laboratory Results - last 24 hr 08/26/25 08/26/25 08/26/25 16:06 20:42 23:04 WBC RBC Hgb Hct MCV MCH MCHC RDW Plt Count MPV Immature Gran % (Auto) Neut % (Auto) Lymph % (Auto) [place] % (Auto) Eos % (Auto) Baso % (Auto) Lymph # (Auto) [place] # (Auto) Eos # (Auto) Baso # (Auto) Abs Immat Gran (auto) Absolute Neuts (auto) Absolute Nucleated RBC Nucleated RBC % (auto) Sodium Potassium Chloride Carbon Dioxide Anion Gap BUN Creatinine Estim Creat Clear Calc Estimated GFR POC Glucose 180 H 185 H 190 H Fasting Glucose Calcium Total Bilirubin AST ALT Alkaline Phosphatase Total Protein Albumin 08/27/25 08/27/25 08/27/25 07:18 09:16 11:21 WBC 10.6 RBC 3.44 L Hgb 9.6 L Hct 31.2 L MCV 90.7 MCH 27.9 MCHC 30.8 L RDW 14.9 Plt Count 403 H MPV 10.1 Immature Gran % (Auto) 1.5 H Neut % (Auto) 66.6 Lymph % (Auto) 22.9 Arch[place] % (Auto) 4.2 Eos % (Auto) 4.0 Baso % (Auto) 0.8 Lymph # (Auto) 2.4 [place] # (Auto) 0.5 Eos # (Auto) 0.4 Baso # (Auto) 0.1 Abs Immat Gran (auto) 0.16 H Absolute Neuts (auto) 7.1 Absolute Nucleated RBC 0.000 Nucleated RBC % (auto) 0.0 Sodium 143 Potassium 2.9 L* Chloride 116 H Carbon Dioxide 22 Anion Gap 8 L BUN 23 H Creatinine 0.83 Estim Creat Clear Calc 76.5 Estimated GFR > 60 POC Glucose 233 H 210 H Fasting Glucose 263 H Calcium 7.5 L D Total Bilirubin 0.1 AST 19 ALT 6 Alkaline Phosphatase 84 Total Protein 5.4 L Albumin 2.1 L Preliminary micro results at discharge 08/22/25 21:47 Blood Culture - Preliminary Blood - Venous No growth after 48 hours. Discharge Plan Discharge Anticipated Discharge Date/Time: 08/27/25 12:36 Patient Disposition: [facility] Discharge Diagnosis: Urinary tract infection Referrals: [facility] [Outside] - 1 Week Fatoumata Beth MD [Primary Care Provider, Medical] - 1 Week Discharge Medications: New amoxicillin-pot clavulanate 875-125 mg tablet 1 tab PO BID Qty: 14 0RF Continued atorvastatin 80 mg Tablet 80 mg PO BEDTIME acetaminophen 325 mg Tablet 650 mg PO Q6H PRN (Reason: Fever Or Pain) carvedilol 12.5 mg Tablet 12.5 mg PO BID Rx Instructions: must administer with a meal/food famotidine 20 mg Tablet 20 mg PO BID bisacodyl 10 mg Suppository 10 mg RI DAILY PRN (Reason: if no BM for 8 hours after MOM) aspirin 81 mg Tablet 81 mg PO DAILY Eliquis 5 mg Tablet 5 mg PO BID multivitamin Tablet 1 tab PO DAILY insulin glargine [Lantus U-100 Insulin] 100 unit/mL Solution 32 unit SUBCUT DAILY ondansetron HCl 4 mg Tablet 4 mg PO Q6H PRN (Reason: Nausea And Vomiting) dextrose [Glucose Gel] 40 % Gel 15 g PO ONCE PRN (Reason: BG below 50) Rx Instructions: until symptoms of low blood sugar are controlled thiamine HCl (vitamin B1) 100 mg Tablet 100 mg PO BID magnesium hydroxide [Milk of Magnesia] 400 mg/5 mL Suspension 30 ml PO DAILY PRN (Reason: constipation, if no BM for 3 days) tamsulosin 0.4 mg Capsule 0.4 mg PO BEDTIME pantoprazole 40 mg Tablet,Delayed Release (Dr/Ec) 40 mg PO DAILY@0630 Fleet Enema 19-7 gram/118 mL Enema 118 ml RI DAILY PRN (Reason: if no BM for 8 hours after bisacodyl suppository) gabapentin 300 mg Capsule 300 mg PO TID folic acid 1 mg Tablet 1 mg PO DAILY oxycodone 5 mg Tablet 10 mg PO Q6H PRN (Reason: Severe Pain (Scale Score 7-10)) insulin lispro [Humalog KwikPen Insulin] 100 unit/mL Insulin Pen 1 sliding scale dose SUBCUT USEASDIRECTD Protocol: Insulin Correction Scale Less than or equal to 110 ---- Give (units): 0 111 to 150 Give (units): 7 151 to 200 Give (units): 9 201 to 250 Give (units): 11 251 to 300 Give (units): 13 301 to 350 Give (units): 15 Greater than 350 Give (units): 0 Call MD if Blood Glucose > : 350 melatonin 5 mg Tablet 5 mg PO BEDTIME glucagon HCl 1 mg Recon Soln 1 mg SUBCUT ONCE PRN (Reason: BG below 60) Rx Instructions: until target blood sugar attained Discontinued amoxicillin 875 mg Tablet 875 mg PO BID Discharge Orders: Discharge Order (Routine); Ordered 08/27/25 Ordered By: Feliciano Camejo Diet: Advance to usual diet Activity on Discharge: As tolerated Stand Alone Forms: Patient Portal Discharge page Print Language: Unable To Collect Care Plan Goals: Continue all meds as outlined on transfer sheet. Health Concerns: Augmentin 875 twice daily for 1 week to complete treatment for UTI Plan of Treatment: Resume care plan as previous be implemented Assessment: See discharge summary
--- NOTE | 2025-08-27 13:50 | PM.PNNEP ---
Subjective Subjective Date of Service: 08/27/25 Interval history: Events noted No acute issues overnight. Remains afebrile; All recent data reviewed Physical Exam Vital Signs: Vital Signs: Last Vital Signs Temp 97.8 F 08/27/25 11:20 Pulse 65 08/27/25 11:20 Resp 18 08/27/25 11:20 BP 157/80 H 08/27/25 11:20 Pulse Ox 99 08/27/25 11:20 O2 Del Method Room Air 08/27/25 11:20 O2 Flow Rate 2 08/24/25 07:31 Oxygen Flow Rate 10 08/22/25 21:02 BMI result Body Mass Index 19.5 Const: Other: Somnolent but arousable confused at baseline Resp: Other: Clear to auscultation bilaterally. No rales rhonchi or wheezes Cardio: Other: No S4; positive S1-S2; no S3 murmurs rubs or gallops GI: Other: Soft nontender nondistended normoactive bowel sounds Extrem: Other: No edema bilaterally Objective Data Labs 08/27/25 09:16 08/27/25 09:16 Labs: Laboratory Results - last 24 hr 08/26/25 08/26/25 08/26/25 16:06 20:42 23:04 WBC RBC Hgb Hct MCV MCH MCHC RDW Plt Count MPV Immature Gran % (Auto) Neut % (Auto) Lymph % (Auto) Sunflower % (Auto) Eos % (Auto) Baso % (Auto) Lymph # (Auto) [place]flower # (Auto) Eos # (Auto) Baso # (Auto) Abs Immat Gran (auto) Absolute Neuts (auto) Absolute Nucleated RBC Nucleated RBC % (auto) Sodium Potassium Chloride Carbon Dioxide Anion Gap BUN Creatinine Estim Creat Clear Calc Estimated GFR POC Glucose 180 H 185 H 190 H Fasting Glucose Calcium Total Bilirubin AST ALT Alkaline Phosphatase Total Protein Albumin 08/27/25 08/27/25 08/27/25 07:18 09:16 11:21 WBC 10.6 RBC 3.44 L Hgb 9.6 L Hct 31.2 L MCV 90.7 MCH 27.9 MCHC 30.8 L RDW 14.9 Plt Count 403 H MPV 10.1 Immature Gran % (Auto) 1.5 H Neut % (Auto) 66.6 Lymph % (Auto) 22.9 Sunflower % (Auto) 4.2 Eos % (Auto) 4.0 Baso % (Auto) 0.8 Lymph # (Auto) 2.4 Sunflower # (Auto) 0.5 Eos # (Auto) 0.4 Baso # (Auto) 0.1 Abs Immat Gran (auto) 0.16 H Absolute Neuts (auto) 7.1 Absolute Nucleated RBC 0.000 Nucleated RBC % (auto) 0.0 Sodium 143 Potassium 2.9 L* Chloride 116 H Carbon Dioxide 22 Anion Gap 8 L BUN 23 H Creatinine 0.83 Estim Creat Clear Calc 76.5 Estimated GFR > 60 POC Glucose 233 H 210 H Fasting Glucose 263 H Calcium 7.5 L D Total Bilirubin 0.1 AST 19 ALT 6 Alkaline Phosphatase 84 Total Protein 5.4 L Albumin 2.1 L Microbiology Microbiology Results: Microbiology 08/23/25 01:43 Urine Catheterized - Straight Catheter Urine Culture - Final 08/22/25 21:47 Blood - Venous Blood Culture - Final Proteus mirabilis 08/22/25 21:47 Blood - Venous Blood Culture - Preliminary No growth after 48 hours. 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 Replace potassium. Hypernatremia due to free water deficit Resolved Shall follow along with the team Time Spent With Patient Time: Total time managing care of this patient today ____ minutes. Progress Note: Quality Stroke Does the patient have a stroke diagnosis?: No
[2025-08-27] MEDS: 0.9 % Sodium Chloride Flush 3 ML SYRINGE IVFLUSH ×2 (14:57→22:46)
[2025-08-27 16:16] LABS: Glucose, Whole Blood 181 mg/dL (60-115)
[2025-08-27 20:31] LABS: Glucose, Whole Blood 225 mg/dL (60-115)
[2025-08-27] MEDS: Insulin Glargine,Hum.rec.anlog 100 UNIT/ML 10 ML VIAL 25 UNIT SUBCUT (22:45)
[2025-08-28 03:05] VITALS: BP 146/66; PULSE 80; RESP 18; TEMP 36.2; O2SAT 98
[2025-08-28 07:20] LABS: Glucose, Whole Blood 176 mg/dL (60-115)
[2025-08-28 07:47] VITALS: BP 123/67; PULSE 88; RESP 18; TEMP 36.1; O2SAT 99
[2025-08-28] MEDS: 0.9 % Sodium Chloride Flush 3 ML SYRINGE IVFLUSH (08:35)
[2025-08-28 10:15] LABS: Anion Gap 9 (12-20); Blood Urea Nitrogen 31 mg/dL (9-16); Calcium 7.6 mg/dL (8.4-10.2); Carbon Dioxide 24 mmol/L (22-29); Chloride 117 mmol/L (96-108); Creatinine Clr Calc Pharmacy 53.8; Estimated Glomerular Filt Rate > 60; Magnesium 1.9 mg/dL (1.6-2.6); Potassium 3.7 mmol/L (3.3-5.1); Sodium 146 mmol/L (135-145)
--- NOTE | 2025-08-28 10:31 | PM.CNCAR ---
History of Present Illness History of Present Illness Date of Service: 08/28/25 Chief complaint: sepsis, UTI, pneumonia Narrative: This is a cardiology consultation regarding ventricular tachycardia. Patient himself is a poor historian. May numerous attempts to communicate but somewhat vague. Does not appear to be reliable. Reviewed the discharge summary from yesterday. It seems that he was supposed to get discharged but then there was wide complex tachycardia on telemetry and hence he was kept back. Many comorbidities listed including medication encephalopathy, history of alcohol abuse, diabetes, hypertension, atrial fibrillation, congestive heart failure. She was treated as GILMA/UTI. He was planned for discharge but then there was VT on telemetry and hence he was kept back in telemetry. Review of Systems Review of Systems: Due to mental status, difficult to obtain review of systems. [facility] Past Medical History Medical History Heart failure Cognitive communication deficit Hx of intermediate school teacher use of blood thinners Atrial fibrillation H/O: HTN (hypertension) CKD (chronic kidney disease) Wernicke encephalopathy Alcohol abuse Diabetes mellitus type 2 in nonobese Family History Pertinent family history: Unable to obtain Surgical History Surgical History History of heart bypass surgery Social History Social History Household Members: Unknown / Unable to assess Housing: Group Home Patient Tobacco Use Status: Tobacco use Unknown Advance Directives Date on File: 08/22/25 service: No Meds Allergies Allergy/AdvReac Type Severity Reaction Status Date / Time No Known Allergies Allergy Verified 08/22/25 21:11 Active Medications: Current Medications Acetaminophen (Acetaminophen 325 Mg Tablet) 975 mg PO Q6H PRN PRN Reason: Pain, Mild 1-3,fever,headache Last Admin: 08/25/25 16:22 Dose: 975 mg Calcium Carbonate (Calcium Carbonate 750 Mg Tab.Chew) 750 mg PO Q4H PRN PRN Reason: Heartburn Last Admin: 08/25/25 17:44 Dose: 750 mg Carvedilol (Carvedilol 12.5 Mg Tablet) 12.5 mg PO BID [facility]; Protocol Last Admin: 08/28/25 08:47 Dose: Not Given Dextrose (Dextrose 50 % 25 Gm/50 Ml Syringe) 25 gm IVPUSH Q15M PRN; Protocol PRN Reason: per Hypoglycemia Standing Ord. Doxycycline Monohydrate (Doxycycline Monohydrate 100 Mg Capsule) 100 mg PO BID [facility] Last Admin: 08/28/25 08:47 Dose: Not Given Glucose (Glucose Gel 15 Gm Gel..Gram.) 15 gm PO Q15M PRN; Protocol PRN Reason: per Hypoglycemia Standing Ord. Heparin Sodium (Porcine) (Heparin Sodium,Porcine 5,000 Unit/Ml Vial) 5,000 unit SUBCUT Q8H [facility] Last Admin: 08/28/25 05:56 Dose: 5,000 unit Ceftriaxone Sodium 2 gm/ (Sodium Chloride) 50 mls @ 100 mls/hr IV Q24H [facility] Last Infusion: 08/27/25 23:47 Dose: Infused Insulin Glargine (Insulin Glargine,Hum.Rec.Anlog 100 Unit/Ml 10 Ml Vial) 25 unit SUBCUT BEDTIME [facility] Last Admin: 08/27/25 22:45 Dose: 25 unit Insulin Human Lispro (Insulin Lispro 100 Unit/Ml 3 Ml Vial) 0 unit SUBCUT QIDACHS [facility]; Protocol Last Admin: 08/28/25 08:33 Dose: 2 unit Magnesium Hydroxide (Milk Of Magnesia 30 Ml Oral.Susp) 30 ml PO DAILY PRN PRN Reason: Constipation Melatonin (Melatonin 3 Mg Tablet) 6 mg PO BEDTIME PRN PRN Reason: Insomnia Metronidazole (Metronidazole 500 Mg Tablet) 500 mg PO TID [facility] Last Admin: 08/28/25 08:47 Dose: Not Given Ondansetron HCl (Ondansetron Hcl 4 Mg/2 Ml Vial) 4 mg IVPUSH Q8H PRN PRN Reason: Nausea and Vomiting Last Admin: 08/27/25 14:57 Dose: 4 mg Potassium Chloride (Potassium Chloride Er 20 Meq Tab.Er.Prt) 40 meq PO BID [facility] Last Admin: 08/28/25 08:48 Dose: Not Given Sodium Chloride (0.9 % Sodium Chloride Flush 3 Ml Syringe) 3 ml IVFLUSH QSHIFT [facility] Last Admin: 08/28/25 08:35 Dose: 3 ml Home Medications ?Medication ?Instructions ?Recorded ?Confirmed ?Last Taken ?Type acetaminophen 325 mg tablet 650 mg PO Q6H PRN Fever Or Pain 08/23/25 08/23/25 Unknown History apixaban 5 mg tablet (Eliquis) 5 mg PO BID 08/23/25 08/23/25 Unknown History aspirin 81 mg tablet 81 mg PO DAILY 08/23/25 08/23/25 Unknown History atorvastatin 80 mg tablet 80 mg PO BEDTIME 08/23/25 08/23/25 Unknown History bisacodyl 10 mg rectal suppository 10 mg PA DAILY PRN if no BM for 8 08/23/25 08/23/25 Unknown History hours after MOM carvedilol 12.5 mg tablet 12.5 mg PO BID 08/23/25 08/23/25 Unknown History dextrose 40 % oral gel (Glucose 15 g PO ONCE PRN BG below 50 08/23/25 08/23/25 Unknown History Gel) famotidine 20 mg tablet 20 mg PO BID 08/23/25 08/23/25 Unknown History folic acid 1 mg tablet 1 mg PO DAILY 08/23/25 08/23/25 Unknown History gabapentin 300 mg capsule 300 mg PO TID 08/23/25 08/23/25 Unknown History glucagon HCl 1 mg solution for 1 mg subcut ONCE PRN BG below 60 08/23/25 08/23/25 Unknown History injection insulin glargine 100 unit/mL 32 unit subcut DAILY 08/23/25 08/23/25 Unknown History subcutaneous solution (Lantus U-100 Insulin) insulin lispro 100 unit/mL 1 sliding scale dose subcut 08/23/25 08/23/25 Unknown History subcutaneous pen (Humalog KwikPen USEASDIRECTD (U-100) Insulin) magnesium hydroxide 400 mg/5 mL 30 ml PO DAILY PRN constipation, 08/23/25 08/23/25 Unknown History oral suspension (Milk of Magnesia) if no BM for 3 days melatonin 5 mg tablet 5 mg PO BEDTIME 08/23/25 08/23/25 Unknown History multivitamin 1 tab PO DAILY 08/23/25 08/23/25 Unknown History ondansetron HCl 4 mg tablet 4 mg PO Q6H PRN Nausea And Vomiting 08/23/25 08/23/25 Unknown History oxycodone 5 mg tablet 10 mg PO Q6H PRN Severe Pain 08/23/25 08/23/25 Unknown History (Scale Score 7-10) pantoprazole 40 mg tablet,delayed 40 mg PO DAILY@0630 08/23/25 08/23/25 Unknown History release sodium phosphates 19 gram-7 118 ml PA DAILY PRN if no BM for 8 08/23/25 08/23/25 Unknown History gram/118 mL enema (Fleet Enema) hours after bisacodyl suppository tamsulosin 0.4 mg capsule 0.4 mg PO BEDTIME 08/23/25 08/23/25 Unknown History thiamine HCl (vitamin B1) 100 mg 100 mg PO BID 08/23/25 08/23/25 Unknown History tablet Physical Exam Vital Signs: Vital Signs: Last Vital Signs Temp 96.9 F 08/28/25 07:47 Pulse 88 08/28/25 07:47 Resp 18 08/28/25 07:47 BP 123/67 08/28/25 07:47 Pulse Ox 99 08/28/25 07:47 O2 Del Method Room Air 08/28/25 07:47 O2 Flow Rate 2 08/24/25 07:31 Oxygen Flow Rate 10 08/22/25 21:02 BMI result Body Mass Index 19.5 Const: General: comfortable and no acute distress Orientation/consciousness: No patient oriented x3 HEENT: Other: Unremarkable Head: Yes normal to inspection Neck: Neck: Yes normal visual inspection Chest: Chest palpation & inspection: normal inspection of the chest Resp: Auscultation: clear to auscultation bilaterally Cardio: Palpation: normal PMI Heart sounds: S1 normal heart sound present, S2 normal heart sound present, no gallops, no murmurs and no rubs GI: Palpation (GI): Soft to palpation Back/Spine/Pelvis: Other: unremarkable Skin: General skin exam: no rashes or lesions noted Neuro: General: No patient oriented x3 Extrem: General: Yes normal to inspection Psych: Mental Status: mental status grossly abnormal Objective Labs and Meds 08/27/25 09:16 08/28/25 09:54 Lab results: Laboratory Results - last 24 hr 08/27/25 08/27/25 08/27/25 09:16 11:21 16:11 Sodium 143 Potassium 2.9 L* Chloride 116 H Carbon Dioxide 22 Anion Gap 8 L BUN 23 H Creatinine 0.83 Estim Creat Clear Calc 76.5 Estimated GFR > 60 POC Glucose 210 H 181 H Random Glucose Fasting Glucose 263 H Calcium 7.5 L D Magnesium Total Bilirubin 0.1 AST 19 ALT 6 Alkaline Phosphatase 84 Total Protein 5.4 L Albumin 2.1 L 08/27/25 08/28/25 08/28/25 20:27 07:08 09:54 Sodium 146 H Potassium 3.7 D Chloride 117 H Carbon Dioxide 24 Anion Gap 9 L BUN 31 H Creatinine 1.18 Estim Creat Clear Calc 53.8 Estimated GFR > 60 POC Glucose 225 H 176 H Random Glucose 176 H Fasting Glucose Calcium 7.6 L Magnesium 1.9 Total Bilirubin AST ALT Alkaline Phosphatase Total Protein Albumin ECG Interpretation: And may need EKG shows sinus rhythm at 87/Min with PVCs. LVH with QRS widening. Lateral T inversions. Assessment and Plan (1) Ventricular tachycardia: Status: Acute (2) Hypokalemia: Status: Acute Plan Baseline EKGs PVCs. Yesterday, potassium was 2.9. On recheck today, it is 3.7. Of note, when it was initially checked was high at 6.3. Overall, up and down. On review of telemetry, there is monomorphic VT of about 26 beats. Overall, altered mental status but not clear if it is chronic or not, hypokalemia, many medical comorbidities, monomorphic VT. Obtain echocardiogram. Correct electrolytes. He is already on beta-blockers and that can be continued. Overall, he is a poor candidate for any aggressive care on account of lack of comprehension/mental status. Procedures Date of Service Date of Service: 08/28/25
--- NOTE | 2025-08-28 10:37 | MHC.CM.PN ---
Per ROUNDS discussion, Patient is not yet medically cleared for dc (tachy); returning to [facility] continues to be the goal.
--- NOTE | 2025-08-28 10:39 | MHC.CLN ---
F/U PT WITH INCREASED NUTRITION RISK R/T PRESSURE INJURY PO INTAKE VARIES BETWEEN 25% DIET RX: 2000DM RECEIVING ENSURE MAX BID TO PROMOTE WOUND HEALING SUPP PROVIDES 300KCALS, 60G PROTEIN CONTINUE TO MONITOR PO INTAKE AND ENCOURAGE SUPPLEMENTS
[2025-08-28 11:22] LABS: Glucose, Whole Blood 149 mg/dL (60-115)
[2025-08-28 12:00] VITALS: BP 147/65; PULSE 75; RESP 18; TEMP 36.3; O2SAT 97
--- NOTE | 2025-08-28 12:18 | HO.PM.IMPN ---
Subjective Subjective Date of Service: 08/28/25 Interval History: Episode of s monomorphic VT of about 26 beats yesterday, potassium was low at that time, today 3.6, mag 1.9 He is refusing to take meds, at least by mouth and is confused, basline not clear at this time Physical Exam Exam: Exam: General: Alert, and oriented to self Resp: CTA bilateral CVS: S1,S2,RRR GI: +BS, NT, no distention Skin: No rash Neuro: motor grossly intact Psych: appropriate affect Vital Signs: Vital Signs: Last Vital Signs Temp 97.3 F 08/28/25 12:00 Pulse 75 08/28/25 12:00 Resp 18 08/28/25 12:00 BP 147/65 H 08/28/25 12:00 Pulse Ox 97 08/28/25 12:00 O2 Del Method Room Air 08/28/25 12:00 O2 Flow Rate 2 08/24/25 07:31 Oxygen Flow Rate 10 08/22/25 21:02 BMI result Body Mass Index 19.5 Objective Data Active Medications Acetaminophen (Acetaminophen 325 Mg Tablet) 975 mg PO Q6H PRN PRN Reason: Pain, Mild 1-3,fever,headache Last Admin: 08/25/25 16:22 Dose: 975 mg Documented By: KATY Calcium Carbonate (Calcium Carbonate 750 Mg Tab.Chew) 750 mg PO Q4H PRN PRN Reason: Heartburn Last Admin: 08/25/25 17:44 Dose: 750 mg Documented By: KATY Carvedilol (Carvedilol 12.5 Mg Tablet) 12.5 mg PO BID [facility]; Protocol Last Admin: 08/28/25 08:47 Dose: Not Given Documented By: ASHLY Non-Admin Reason: Patient Refused Dextrose (Dextrose 50 % 25 Gm/50 Ml Syringe) 25 gm IVPUSH Q15M PRN; Protocol PRN Reason: per Hypoglycemia Standing Ord. Doxycycline Monohydrate (Doxycycline Monohydrate 100 Mg Capsule) 100 mg PO BID [facility] Last Admin: 08/28/25 08:47 Dose: Not Given Documented By: ASHLY Non-Admin Reason: Patient Refused Glucose (Glucose Gel 15 Gm Gel..Gram.) 15 gm PO Q15M PRN; Protocol PRN Reason: per Hypoglycemia Standing Ord. Heparin Sodium (Porcine) (Heparin Sodium,Porcine 5,000 Unit/Ml Vial) 5,000 unit SUBCUT Q8H [facility] Last Admin: 08/28/25 05:56 Dose: 5,000 unit Documented By: KATY Ceftriaxone Sodium 2 gm/ (Sodium Chloride) 50 mls @ 100 mls/hr IV Q24H [facility] Last Infusion: 08/27/25 23:47 Dose: Infused Documented By: KATY Insulin Glargine (Insulin Glargine,Hum.Rec.Anlog 100 Unit/Ml 10 Ml Vial) 25 unit SUBCUT BEDTIME [facility] Last Admin: 08/27/25 22:45 Dose: 25 unit Documented By: KATY Insulin Human Lispro (Insulin Lispro 100 Unit/Ml 3 Ml Vial) 0 unit SUBCUT QIDACHS [facility]; Protocol Last Admin: 08/28/25 11:33 Dose: Not Given Documented By: ASHLY Non-Admin Reason: No Insulin Coverage Magnesium Hydroxide (Milk Of Magnesia 30 Ml Oral.Susp) 30 ml PO DAILY PRN PRN Reason: Constipation Melatonin (Melatonin 3 Mg Tablet) 6 mg PO BEDTIME PRN PRN Reason: Insomnia Metronidazole (Metronidazole 500 Mg Tablet) 500 mg PO TID [facility] Last Admin: 08/28/25 08:47 Dose: Not Given Documented By: ASHLY Non-Admin Reason: Patient Refused Ondansetron HCl (Ondansetron Hcl 4 Mg/2 Ml Vial) 4 mg IVPUSH Q8H PRN PRN Reason: Nausea and Vomiting Last Admin: 08/27/25 14:57 Dose: 4 mg Documented By: LISSETT Potassium Chloride (Potassium Chloride Er 20 Meq Tab.Er.Prt) 40 meq PO BID [facility] Last Admin: 08/28/25 08:48 Dose: Not Given Documented By: ASHLY Non-Admin Reason: Patient Refused Sodium Chloride (0.9 % Sodium Chloride Flush 3 Ml Syringe) 3 ml IVFLUSH QSHIFT [facility] Last Admin: 08/28/25 08:35 Dose: 3 ml Documented By: ASHLY Labs 08/27/25 09:16 08/28/25 09:54 Labs: Laboratory Results - last 24 hr 08/27/25 08/27/25 08/28/25 16:11 20:27 07:08 Anion Gap Estim Creat Clear Calc Estimated GFR POC Glucose 181 H 225 H 176 H Random Glucose Calcium Magnesium 08/28/25 08/28/25 09:54 11:16 Anion Gap 9 L Estim Creat Clear Calc 53.8 Estimated GFR > 60 POC Glucose 149 H Random Glucose 176 H Calcium 7.6 L Magnesium 1.9 Microbiology Microbiology Results: Microbiology 08/22/25 21:47 Blood Culture - Final Blood - Venous No growth after 5 days. Assessment and Plan (1) Acute UTI: Status: Acute (2) Acute kidney injury superimposed on CKD: Status: Acute Plan Patient is a 54-year-old male with a past medical history significant for CHF, AFib, hypertension, CKD, Wernicke's encephalopathy, history alcohol abuse and type 2 diabetes, who presented to the ED from a nursing facility due to lethargy. Pt found to have acute hypoxia, PNA, UTI, and possible colitis on CT Wide complex monomorphic Vtach yesterday, possible related to electrolyes K now better at 3.7, mag 1.9 will try and keep mag 2 and K 4 cardiology recommend an echo Acute hypoxic respiratory failure in the setting of pneumonia, UT(sepsis resolved ) - ceftriaxone/doxycycline/flagyl(5)... Switch to p.o. at dc - Off O2 - urine culture greater than 100,000 colonies mixed chai. l - monitor CBC and BMP GILMA on CKD, likely secondary to dehydration - creatinine within normal hypernatremia/dehdytrataion, sodium 146 Add dextrose with water Colitis versus IBD on CT -ceftriaxone/doxycycline/flagyl as above .Paroxysmal AFib -acceptable control on current therapies -continue eliquis, if regusing then heparin Type 2 diabetes - sliding scale insulin - diabetic diet Full code, MOSLT in chart Heparin Patient requires ongoing hospitalization pending full return of cultures in backdrop of acute UTI Quality Stroke Does the patient have a stroke diagnosis?: No VTE Prior VTE?: No VTE Risk Level:: Medical - moderate - high VTE Device Contraindication: Treatment Not Indicated VTE Drug Contraindication: N/A - Med Ordered
[2025-08-28] MEDS: Dextrose 5 % and 0.45 % NaCl 1,000 ML 100 ML IVCONT (14:18)
[2025-08-28] MEDS: Potassium Chloride/H20 10 MEQ/100 ML PIGGYBACK 100 MEQ IV ×2 (14:25→22:53)
[2025-08-28 15:49] LABS: Glucose, Whole Blood 186 mg/dL (60-115)
[2025-08-28 15:55] VITALS: BP 105/65; PULSE 82; RESP 16; TEMP 36.4; O2SAT 95
--- NOTE | 2025-08-28 18:17 | P.PNNP_ITS ---
Subjective Subjective Date of Service: 08/28/25 Interval history: Events noted Physical Exam 2 Vital Signs: Vital Signs: Last Vital Signs Temp 97.5 F 08/28/25 15:55 Pulse 82 08/28/25 15:55 Resp 16 08/28/25 15:55 BP 105/65 08/28/25 15:55 Pulse Ox 95 08/28/25 15:55 O2 Del Method Room Air 08/28/25 15:55 O2 Flow Rate 2 08/24/25 07:31 Oxygen Flow Rate 10 08/22/25 21:02 BMI result Body Mass Index 19.5 Resp: Other: Clear to auscultation bilaterally. No rales rhonchi or wheezes Cardio: Other: No S4; positive S1-S2; no S3 murmurs rubs or gallops GI: Other: Soft nontender nondistended normoactive bowel sounds Extrem: Other: No edema bilaterally Objective Data Labs 08/27/25 09:16 08/28/25 09:54 Labs: Laboratory Results - last 24 hr 08/27/25 08/28/25 08/28/25 20:27 07:08 09:54 Sodium 146 H Potassium 3.7 D Chloride 117 H Carbon Dioxide 24 Anion Gap 9 L BUN 31 H Creatinine 1.18 Estim Creat Clear Calc 53.8 Estimated GFR > 60 POC Glucose 225 H 176 H Random Glucose 176 H Calcium 7.6 L Magnesium 1.9 08/28/25 08/28/25 11:16 15:37 Sodium Potassium Chloride Carbon Dioxide Anion Gap BUN Creatinine Estim Creat Clear Calc Estimated GFR POC Glucose 149 H 186 H Random Glucose Calcium Magnesium Microbiology Microbiology Results: Microbiology 08/22/25 21:47 Blood - Venous Blood Culture - Final No growth after 5 days. 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 Progress Note: Quality Stroke Does the patient have a stroke diagnosis?: No
[2025-08-28 19:59] VITALS: BP 158/67; PULSE 82; RESP 18; TEMP 36.2; O2SAT 98
[2025-08-28 20:41] LABS: Glucose, Whole Blood 231 mg/dL (60-115)
[2025-08-28] MEDS: Insulin Glargine,Hum.rec.anlog 100 UNIT/ML 10 ML VIAL 25 UNIT SUBCUT (22:14)
[2025-08-29] VITALS: BP 144/65; PULSE 86; RESP 18; TEMP 36.6; O2SAT 99
[2025-08-29] MEDS: metroNIDAZOLE/NS 500 MG/100 ML PIGGYBACK 100 MG IV (00:01)
[2025-08-29] MEDS: Dextrose 5 % and 0.45 % NaCl 1,000 ML 100 ML IVCONT ×3 (00:01→22:30)
[2025-08-29] MEDS: Potassium Chloride/H20 10 MEQ/100 ML PIGGYBACK 100 MEQ IV ×3 (00:36→03:16)
[2025-08-29 03:42] VITALS: BP 105/59; PULSE 82; RESP 18; TEMP 36.3; O2SAT 100
[2025-08-29 07:17] VITALS: BP 143/71; PULSE 90; RESP 19; TEMP 36.4; O2SAT 94
[2025-08-29 07:26] LABS: Glucose, Whole Blood 266 mg/dL (60-115)
[2025-08-29 09:14] LABS: Anion Gap 12 (12-20); Blood Urea Nitrogen 27 mg/dL (9-16); Calcium 7.4 mg/dL (8.4-10.2); Carbon Dioxide 21 mmol/L (22-29); Chloride 115 mmol/L (96-108); Creatinine Clr Calc Pharmacy 61.1; Estimated Glomerular Filt Rate > 60; Magnesium 1.9 mg/dL (1.6-2.6); Potassium 4.1 mmol/L (3.3-5.1); Sodium 144 mmol/L (135-145)
[2025-08-29 11:41] VITALS: BP 170/76; PULSE 72; RESP 12; TEMP 36; O2SAT 98
[2025-08-29 11:42] LABS: Glucose, Whole Blood 226 mg/dL (60-115)
[2025-08-29 13:15] LABS: OBS Int Ctl Valid YES; OBS1 POSITIVE (NEGATIVE)
--- NOTE | 2025-08-29 15:09 | P.PNIM_ITS ---
Subjective Subjective Date of Service: 08/29/25 Interval History: Episode of vomiting this a.m.... Arellano draining clear liquid Review of Systems Unable to obtain Physical Exam 2 Vital Signs: Vital Signs: Last Vital Signs Temp 96.8 F 08/29/25 11:41 Pulse 72 08/29/25 11:41 Resp 12 08/29/25 11:41 BP 170/76 H 08/29/25 11:41 Pulse Ox 98 08/29/25 11:41 O2 Del Method Room Air 08/29/25 11:41 O2 Flow Rate 2 08/24/25 07:31 Oxygen Flow Rate 10 08/22/25 21:02 BMI result Body Mass Index 19.5 Const: Other: Somnolent but arousable confused at baseline Resp: Other: Clear to auscultation bilaterally. No rales rhonchi or wheezes Cardio: Other: No S4; positive S1-S2; no S3 murmurs rubs or gallops GI: Other: Soft nontender nondistended normoactive bowel sounds Extrem: Other: No edema bilaterally Objective Data Active Medications Acetaminophen (Acetaminophen 325 Mg Tablet) 975 mg PO Q6H PRN PRN Reason: Pain, Mild 1-3,fever,headache Last Admin: 08/29/25 13:17 Dose: 975 mg Documented By: ASHLY Apixaban (Apixaban 5 Mg Tablet) 5 mg PO BID [facility] Last Admin: 08/29/25 11:50 Dose: Not Given Documented By: ASHLY Non-Admin Reason: Patient Refused Calcium Carbonate (Calcium Carbonate 750 Mg Tab.Chew) 750 mg PO Q4H PRN PRN Reason: Heartburn Last Admin: 08/25/25 17:44 Dose: 750 mg Documented By: KATY Carvedilol (Carvedilol 12.5 Mg Tablet) 12.5 mg PO BID [facility]; Protocol Last Admin: 08/29/25 11:50 Dose: Not Given Documented By: ASHLY Non-Admin Reason: Patient Refused Dextrose (Dextrose 50 % 25 Gm/50 Ml Syringe) 25 gm IVPUSH Q15M PRN; Protocol PRN Reason: per Hypoglycemia Standing Ord. Doxycycline Monohydrate (Doxycycline Monohydrate 100 Mg Capsule) 100 mg PO BID [facility] Last Admin: 08/29/25 11:51 Dose: Not Given Documented By: ASHLY Non-Admin Reason: Patient Refused Glucose (Glucose Gel 15 Gm Gel..Gram.) 15 gm PO Q15M PRN; Protocol PRN Reason: per Hypoglycemia Standing Ord. Ceftriaxone Sodium 2 gm/ (Sodium Chloride) 50 mls @ 100 mls/hr IV Q24H [facility] Last Infusion: 08/29/25 00:36 Dose: Infused Documented By: ENDY Dextrose/Sodium Chloride (D51/2ns) 1,000 mls @ 100 mls/hr IVCONT .Q10H [facility] Last Admin: 08/29/25 13:19 Dose: 100 mls/hr Documented By: ASHLY Insulin Glargine (Insulin Glargine,Hum.Rec.Anlog 100 Unit/Ml 10 Ml Vial) 25 unit SUBCUT BEDTIME [facility] Last Admin: 08/28/25 22:14 Dose: 25 unit Documented By: ENDY Insulin Human Lispro (Insulin Lispro 100 Unit/Ml 3 Ml Vial) 0 unit SUBCUT QIDACHS [facility]; Protocol Last Admin: 08/29/25 12:02 Dose: 4 unit Documented By: ASHLY Magnesium Hydroxide (Milk Of Magnesia 30 Ml Oral.Susp) 30 ml PO DAILY PRN PRN Reason: Constipation Melatonin (Melatonin 3 Mg Tablet) 6 mg PO BEDTIME PRN PRN Reason: Insomnia Metronidazole (Metronidazole 500 Mg Tablet) 500 mg PO TID [facility] Last Admin: 08/29/25 11:51 Dose: Not Given Documented By: ASHLY Non-Admin Reason: Patient Refused Ondansetron HCl (Ondansetron Hcl 4 Mg/2 Ml Vial) 4 mg IVPUSH Q8H PRN PRN Reason: Nausea and Vomiting Last Admin: 08/29/25 12:09 Dose: 4 mg Documented By: ASHLY Potassium Chloride (Potassium Chloride Er 20 Meq Tab.Er.Prt) 40 meq PO BID [facility] Last Admin: 08/29/25 11:51 Dose: Not Given Documented By: ASHLY Non-Admin Reason: Patient Refused Prochlorperazine Edisylate (Prochlorperazine Edisylate 10 Mg/2 Ml Vial) 5 mg IVPUSH Q4H PRN PRN Reason: Nausea and Vomiting Last Admin: 08/28/25 22:52 Dose: 5 mg Documented By: ENDY Sodium Chloride (0.9 % Sodium Chloride Flush 3 Ml Syringe) 3 ml IVFLUSH QSHIFT [facility] Last Admin: 08/29/25 08:16 Dose: Not Given Documented By: ASHLY Non-Admin Reason: IV Running Labs 08/27/25 09:16 08/29/25 07:50 Labs: Laboratory Results - last 24 hr 08/28/25 08/28/25 08/29/25 15:37 20:38 07:20 Hold Purple Top Anion Gap Estim Creat Clear Calc Estimated GFR POC Glucose 186 H 231 H 266 H Random Glucose Calcium Magnesium Stool Occult Blood 08/29/25 08/29/25 08/29/25 07:50 11:33 12:43 Hold Purple Top SEE NOTE Anion Gap 12 Estim Creat Clear Calc 61.1 Estimated GFR > 60 POC Glucose 226 H Random Glucose 265 H Calcium 7.4 L Magnesium 1.9 Stool Occult Blood POSITIVE Assessment and Plan (1) Acute UTI: Status: Acute (2) Acute hyperkalemia: Status: Acute Plan Patient is a 54-year-old male with a past medical history significant for CHF, AFib, hypertension, CKD, Wernicke's encephalopathy, history alcohol abuse and type 2 diabetes, who presented to the ED from a nursing facility due to lethargy. Pt found to have acute hypoxia, PNA, UTI, and possible colitis on CT 1.Acute hypoxic respiratory failure in the setting of pneumonia, UTI (sepsis resolved ) - ceftriaxone/doxycycline/flagyl(4)... Switch to p.o... Refusing - titrate oxygen as needed - urine culture greater than 100,000 colonies mixed chai - monitor CBC and BMP 2.GILMA on CKD, likely secondary to dehydration - creatinine trending downward -free water deficit calculated at 2 L -add D5W at 100 an hour -follow renal/divalent 3.Colitis versus IBD on CT -ceftriaxone/doxycycline/flagyl(2) - stool studies 4.Paroxysmal AFib -acceptable control on current therapies - hold eliquis due to GILMA , heparin 5.Type 2 diabetes - sliding scale insulin - diabetic diet Full code, MOSLT in chart Heparin Patient requires ongoing hospitalization pending full return of cultures in backdrop of acute UTI Quality Stroke Does the patient have a stroke diagnosis?: No VTE Prior VTE?: No VTE Risk Level:: Medical - moderate - high VTE Device Contraindication: Treatment Not Indicated VTE Drug Contraindication: N/A - Med Ordered
[2025-08-29 15:12] VITALS: BP 106/55; PULSE 74; RESP 12; TEMP 36.2; O2SAT 99
[2025-08-29 16:07] LABS: Glucose, Whole Blood 136 mg/dL (60-115)
[2025-08-29 19:50] LABS: Glucose, Whole Blood 134 mg/dL (60-115)
[2025-08-29 20:00] VITALS: BP 164/66; PULSE 73; RESP 18; TEMP 36.3; O2SAT 100
[2025-08-29] MEDS: Insulin Glargine,Hum.rec.anlog 100 UNIT/ML 10 ML VIAL 25 UNIT SUBCUT (22:18)
[2025-08-29] MEDS: 0.9 % Sodium Chloride Flush 3 ML SYRINGE IVFLUSH (22:19)
[2025-08-30] VITALS (7 sets, daily range): BP systolic 130–161; BP diastolic 52–69; PULSE 71–86; RESP 16–18; TEMP 36.6–37.2; O2SAT 96–99
[2025-08-30] MEDS: Dextrose 5 % and 0.45 % NaCl 1,000 ML 100 ML IVCONT ×2 (06:04→09:32)
[2025-08-30 07:19] LABS: Glucose, Whole Blood 72 mg/dL (60-115)
[2025-08-30 11:39] LABS: Glucose, Whole Blood 65 mg/dL (60-115)
--- NOTE | 2025-08-30 11:55 | PC.NURSE ---
Addendum entered by Brenda Colmenares RN 08/30/25 19:27: at 1800 bladder patient for 588ml patient retaining Dr. Camejo notify. straight cath done per MD orders for 600ml . patient due to void at 2400. patient to be monitor ,report giving to the upcoming nurse. Original Note: at 11:00 per order Arellano cath removed patient tolerated well voiding trial started and pt due to void at 17:00. patient to be monitor
--- NOTE | 2025-08-30 12:27 | HO.PM.IMPN ---
Subjective Subjective Date of Service: 08/30/25 Interval History: More alert today Review of Systems Unable to obtain Physical Exam Vital Signs: Vital Signs: Last Vital Signs Temp 97.8 F 08/30/25 12:00 Pulse 71 08/30/25 12:00 Resp 16 08/30/25 12:00 BP 161/52 H 08/30/25 12:00 Pulse Ox 99 08/30/25 12:00 O2 Del Method Room Air 08/30/25 12:00 O2 Flow Rate 2 08/24/25 07:31 Oxygen Flow Rate 10 08/22/25 21:02 BMI result Body Mass Index 19.5 Const: Other: Somnolent but arousable confused at baseline Resp: Other: Clear to auscultation bilaterally. No rales rhonchi or wheezes Cardio: Other: No S4; positive S1-S2; no S3 murmurs rubs or gallops GI: Other: Soft nontender nondistended normoactive bowel sounds Extrem: Other: No edema bilaterally Objective Data Active Medications Acetaminophen (Acetaminophen 325 Mg Tablet) 975 mg PO Q6H PRN PRN Reason: Pain, Mild 1-3,fever,headache Last Admin: 08/29/25 13:17 Dose: 975 mg Documented By: ASHLY Apixaban (Apixaban 5 Mg Tablet) 5 mg PO BID [facility] Last Admin: 08/30/25 10:46 Dose: Not Given Documented By: ASHLY Non-Admin Reason: Patient Refused Calcium Carbonate (Calcium Carbonate 750 Mg Tab.Chew) 750 mg PO Q4H PRN PRN Reason: Heartburn Last Admin: 08/25/25 17:44 Dose: 750 mg Documented By: KATY Carvedilol (Carvedilol 12.5 Mg Tablet) 12.5 mg PO BID [facility]; Protocol Last Admin: 08/30/25 10:46 Dose: Not Given Documented By: ASHLY Non-Admin Reason: Patient Refused Dextrose (Dextrose 50 % 25 Gm/50 Ml Syringe) 25 gm IVPUSH Q15M PRN; Protocol PRN Reason: per Hypoglycemia Standing Ord. Doxycycline Monohydrate (Doxycycline Monohydrate 100 Mg Capsule) 100 mg PO BID [facility] Last Admin: 08/30/25 10:46 Dose: Not Given Documented By: ASHLY Non-Admin Reason: Patient Refused Glucose (Glucose Gel 15 Gm Gel..Gram.) 15 gm PO Q15M PRN; Protocol PRN Reason: per Hypoglycemia Standing Ord. Ceftriaxone Sodium 2 gm/ (Sodium Chloride) 50 mls @ 100 mls/hr IV Q24H [facility] Last Infusion: 08/29/25 22:46 Dose: Infused Documented By: ENDY Dextrose/Sodium Chloride (D51/2ns) 1,000 mls @ 100 mls/hr IVCONT .Q10H [facility] Last Admin: 08/30/25 09:32 Dose: 100 mls/hr Documented By: ASHLY Insulin Glargine (Insulin Glargine,Hum.Rec.Anlog 100 Unit/Ml 10 Ml Vial) 25 unit SUBCUT BEDTIME [facility] Last Admin: 08/29/25 22:18 Dose: 25 unit Documented By: ENDY Insulin Human Lispro (Insulin Lispro 100 Unit/Ml 3 Ml Vial) 0 unit SUBCUT QIDACHS [facility]; Protocol Last Admin: 08/30/25 07:33 Dose: Not Given Documented By: ASHLY Non-Admin Reason: No Insulin Coverage Magnesium Hydroxide (Milk Of Magnesia 30 Ml Oral.Susp) 30 ml PO DAILY PRN PRN Reason: Constipation Melatonin (Melatonin 3 Mg Tablet) 6 mg PO BEDTIME PRN PRN Reason: Insomnia Metronidazole (Metronidazole 500 Mg Tablet) 500 mg PO TID [facility] Last Admin: 08/30/25 10:46 Dose: Not Given Documented By: ASHLY Non-Admin Reason: Patient Refused Ondansetron HCl (Ondansetron Hcl 4 Mg/2 Ml Vial) 4 mg IVPUSH Q8H PRN PRN Reason: Nausea and Vomiting Last Admin: 08/29/25 12:09 Dose: 4 mg Documented By: ASHLY Potassium Chloride (Potassium Chloride Er 20 Meq Tab.Er.Prt) 40 meq PO BID [facility] Last Admin: 08/30/25 10:46 Dose: Not Given Documented By: ASHLY Non-Admin Reason: Patient Refused Prochlorperazine Edisylate (Prochlorperazine Edisylate 10 Mg/2 Ml Vial) 5 mg IVPUSH Q4H PRN PRN Reason: Nausea and Vomiting Last Admin: 08/29/25 22:40 Dose: 5 mg Documented By: ENDY Sodium Chloride (0.9 % Sodium Chloride Flush 3 Ml Syringe) 3 ml IVFLUSH QSHIFT [facility] Last Admin: 08/30/25 09:31 Dose: Not Given Documented By: ASHLY Non-Admin Reason: IV Running Labs 08/27/25 09:16 08/29/25 07:50 Labs: Laboratory Results - last 24 hr 08/29/25 08/29/25 08/30/25 16:01 19:36 07:05 POC Glucose 136 H 134 H 72 08/30/25 11:30 POC Glucose 65 Assessment and Plan (1) Pneumonia: Status: Acute Plan Patient is a 54-year-old male with a past medical history significant for CHF, AFib, hypertension, CKD, Wernicke's encephalopathy, history alcohol abuse and type 2 diabetes, who presented to the ED from a nursing facility due to lethargy. Pt found to have acute hypoxia, PNA, UTI, and possible colitis on CT 1.Acute hypoxic respiratory failure in the setting of pneumonia, UTI (sepsis resolved ) - ceftriaxone/doxycycline/flagyl(4)... Switch to p.o... Refusing - titrate oxygen as needed - urine culture greater than 100,000 colonies mixed chai - monitor CBC and BMP 2.GILMA on CKD, likely secondary to dehydration - creatinine trending downward -free water deficit calculated at 2 L -add D5W at 100 an hour -follow renal/divalent 3.Colitis versus IBD on CT -ceftriaxone/doxycycline/flagyl(2) - stool studies 4.Paroxysmal AFib -acceptable control on current therapies - hold eliquis due to GILMA , heparin 5.Type 2 diabetes - sliding scale insulin - diabetic diet Full code, MOSLT in chart Heparin Patient requires ongoing hospitalization pending full return of cultures in backdrop of acute UTI Quality Stroke Does the patient have a stroke diagnosis?: No VTE Prior VTE?: No VTE Risk Level:: Medical - moderate - high VTE Device Contraindication: Treatment Not Indicated VTE Drug Contraindication: N/A - Med Ordered
[2025-08-30 12:28] LABS: Glucose, Whole Blood 72 mg/dL (60-115)
[2025-08-30 13:00] LABS: Anion Gap 11 (12-20); Blood Urea Nitrogen 13 mg/dL (9-16); Calcium 7.3 mg/dL (8.4-10.2); Carbon Dioxide 17 mmol/L (22-29); Chloride 119 mmol/L (96-108); Creatinine Clr Calc Pharmacy 82.5; Estimated Glomerular Filt Rate > 60; Magnesium 1.6 mg/dL (1.6-2.6); Potassium 4.4 mmol/L (3.3-5.1); Sodium 143 mmol/L (135-145)
[2025-08-30 16:33] LABS: Glucose, Whole Blood 65 mg/dL (60-115)
[2025-08-30 18:17] LABS: Glucose, Whole Blood 137 mg/dL (60-115)
[2025-08-30 18:21] LABS: Glucose, Whole Blood 135 mg/dL (60-115)
[2025-08-30 19:54] LABS: Glucose, Whole Blood 115 mg/dL (60-115)
[2025-08-30] MEDS: metroNIDAZOLE/NS 500 MG/100 ML PIGGYBACK 100 MG IV (23:35)
[2025-08-31 00:53] LABS: Glucose, Whole Blood 53 mg/dL (60-115)
[2025-08-31] MEDS: Glucose Gel 15 GM GEL..GRAM. PO (00:55)
[2025-08-31 01:15] LABS: Glucose, Whole Blood 54 mg/dL (60-115)
[2025-08-31 01:37] LABS: Glucose, Whole Blood 156 mg/dL (60-115)
[2025-08-31 03:33] VITALS: BP 157/72; PULSE 63; RESP 18; TEMP 36.8; O2SAT 97
[2025-08-31 06:59] LABS: Anion Gap 8 (12-20); Blood Urea Nitrogen 11 mg/dL (9-16); Calcium 7.3 mg/dL (8.4-10.2); Carbon Dioxide 18 mmol/L (22-29); Chloride 118 mmol/L (96-108); Creatinine Clr Calc Pharmacy 89.4; Estimated Glomerular Filt Rate > 60; Magnesium 1.6 mg/dL (1.6-2.6); Potassium 3.5 mmol/L (3.3-5.1); Sodium 140 mmol/L (135-145)
[2025-08-31 07:55] LABS: Glucose, Whole Blood 125 mg/dL (60-115)
[2025-08-31 08:00] VITALS: BP 136/63; PULSE 73; RESP 16; TEMP 37.1; O2SAT 99
[2025-08-31] MEDS: 0.9 % Sodium Chloride Flush 3 ML SYRINGE IVFLUSH (09:47)
--- NOTE | 2025-08-31 11:03 | P.DS_ITS ---
DS: Providers Provider Date of Service: 08/31/25 Date of admission: 08/23/25 06:15 Date of discharge: 08/31/25 Primary care physician: Fatoumata Beth MD Consults: 08/23/25 06:32 Consult to Nephrology Routine Consulting Provider: [facility] [place] [place] [facility] Reason for consultation: cr 4.22, baseline unknown, hydonephrosis on CT Has provider been notified: No 08/23/25 17:44 Consult to Wound Care Routine Consulting Provider: [facility] [place] [place] [facility] Reason for consultation: pressure injury to buttocks, left heel 08/24/25 17:33 Consult to Urology Routine Consulting Provider: [facility] [place] [place] [facility] Reason for consultation: hematuria Has provider been notified: No 08/27/25 14:18 Consult to Cardiology Routine Consulting Provider: [facility] [place] [place] [facility] Reason for consultation: 26 beat wide complex tachycardia Has provider been notified: No DS: Diagnosis Discharge Diagnosis (1) Pneumonia: Status: Acute DS: Summary Hospital Course Hospital Course: 54-year-old male with a past medical history significant for CHF, AFib, hypertension, CKD, Wernicke's encephalopathy, history alcohol abuse and type 2 diabetes, who presented to the ED from a nursing facility due to lethargy. The patient arrived his O2 saturation was in the low 80s and he is somnolent, unable to provide any history. Urine is malodorous and positive for UTI. creatinine of 4.22, 0.77 upon [facility] chart review. Imaging revealing bilateral pneumonia, possible colitis versus IBD, cystitis and mild left hydronephrosis. He is also hyperkalemic and was treated in the ED with albuterol, calclium, insulin, dextrose, and bicarb. Hospitral Course Patient was admitted to telemetry where monitor failed to demonstrate any acute dysrhythmias. He was covered broadly for both his UTI and pulmonary info traits. Arellano was changed in ER prior to specimen collection. He was seen in consultation by Nephrology secondary to acute kidney injury. This responded well to volume repletion. Over the course of his hospitalization, his kidney function continued to improve and his urine cleared from initial presentation. Attempt to remove Arellano and voiding trial failed so at this point we will discharge back to facility and they can attempt voiding trial at that time. At this point in time he is medically acceptable for discharge and will complete a course of Augmentin. Time Attestation Discharge Coordination Time (in mins): 35 Quality: Safe Use of Opioids Does Pt have an Active Cancer Diagnosis on the Problem List?: No Quality: Stroke Does the patient have a stroke diagnosis?: No Physical Exam Vital Signs: Vital Signs: Last Vital Signs Temp 98.8 F 08/31/25 08:00 Pulse 73 08/31/25 08:00 Resp 16 08/31/25 08:00 BP 136/63 08/31/25 08:00 Pulse Ox 99 08/31/25 08:00 O2 Del Method Room Air 08/31/25 08:00 O2 Flow Rate 2 08/24/25 07:31 Oxygen Flow Rate 10 08/22/25 21:02 BMI result Body Mass Index 19.5 Const: Other: Somnolent but arousable confused at baseline Resp: Other: Clear to auscultation bilaterally. No rales rhonchi or wheezes Cardio: Other: No S4; positive S1-S2; no S3 murmurs rubs or gallops GI: Other: Soft nontender nondistended normoactive bowel sounds Extrem: Other: No edema bilaterally DS: Data Data Completed and Pending Labs on day of discharge: Laboratory Results - last 24 hr 08/30/25 08/30/25 08/30/25 11:30 12:24 12:28 Hold Purple Top Sodium 143 Potassium 4.4 Chloride 119 H Carbon Dioxide 17 L Anion Gap 11 L BUN 13 Creatinine 0.77 Estim Creat Clear Calc 82.5 Estimated GFR > 60 POC Glucose 65 72 Random Glucose 72 Calcium 7.3 L Magnesium 1.6 08/30/25 08/30/25 08/30/25 16:26 18:14 18:18 Hold Purple Top Sodium Potassium Chloride Carbon Dioxide Anion Gap BUN Creatinine Estim Creat Clear Calc Estimated GFR POC Glucose 65 137 H 135 H Random Glucose Calcium Magnesium 08/30/25 08/31/25 08/31/25 19:36 00:48 01:11 Hold Purple Top Sodium Potassium Chloride Carbon Dioxide Anion Gap BUN Creatinine Estim Creat Clear Calc Estimated GFR POC Glucose 115 53 L* 54 L* Random Glucose Calcium Magnesium 08/31/25 08/31/25 08/31/25 01:32 06:32 07:35 Hold Purple Top SEE NOTE Sodium 140 Potassium 3.5 D Chloride 118 H Carbon Dioxide 18 L Anion Gap 8 L BUN 11 Creatinine 0.71 Estim Creat Clear Calc 89.4 Estimated GFR > 60 POC Glucose 156 H 125 H Random Glucose 133 H Calcium 7.3 L Magnesium 1.6 Discharge Plan Discharge Anticipated Discharge Date/Time: 08/31/25 11:02 Patient Disposition: [facility] Discharge Diagnosis: Urinary tract infection Referrals: [facility] [Outside] - 1 Week Fatoumata Beth MD [Primary Care Provider, Medical] - 1 Week Discharge Medications: New amoxicillin-pot clavulanate 875-125 mg tablet 1 tab PO BID Qty: 14 0RF Continued atorvastatin 80 mg Tablet 80 mg PO BEDTIME acetaminophen 325 mg Tablet 650 mg PO Q6H PRN (Reason: Fever Or Pain) carvedilol 12.5 mg Tablet 12.5 mg PO BID Rx Instructions: must administer with a meal/food famotidine 20 mg Tablet 20 mg PO BID bisacodyl 10 mg Suppository 10 mg WV DAILY PRN (Reason: if no BM for 8 hours after MOM) aspirin 81 mg Tablet 81 mg PO DAILY Eliquis 5 mg Tablet 5 mg PO BID multivitamin Tablet 1 tab PO DAILY insulin glargine [Lantus U-100 Insulin] 100 unit/mL Solution 32 unit SUBCUT DAILY ondansetron HCl 4 mg Tablet 4 mg PO Q6H PRN (Reason: Nausea And Vomiting) dextrose [Glucose Gel] 40 % Gel 15 g PO ONCE PRN (Reason: BG below 50) Rx Instructions: until symptoms of low blood sugar are controlled thiamine HCl (vitamin B1) 100 mg Tablet 100 mg PO BID magnesium hydroxide [Milk of Magnesia] 400 mg/5 mL Suspension 30 ml PO DAILY PRN (Reason: constipation, if no BM for 3 days) tamsulosin 0.4 mg Capsule 0.4 mg PO BEDTIME pantoprazole 40 mg Tablet,Delayed Release (Dr/Ec) 40 mg PO DAILY@0630 Fleet Enema 19-7 gram/118 mL Enema 118 ml WV DAILY PRN (Reason: if no BM for 8 hours after bisacodyl suppository) gabapentin 300 mg Capsule 300 mg PO TID folic acid 1 mg Tablet 1 mg PO DAILY oxycodone 5 mg Tablet 10 mg PO Q6H PRN (Reason: Severe Pain (Scale Score 7-10)) insulin lispro [Humalog KwikPen Insulin] 100 unit/mL Insulin Pen 1 sliding scale dose SUBCUT USEASDIRECTD Protocol: Insulin Correction Scale Less than or equal to 110 ---- Give (units): 0 111 to 150 Give (units): 7 151 to 200 Give (units): 9 201 to 250 Give (units): 11 251 to 300 Give (units): 13 301 to 350 Give (units): 15 Greater than 350 Give (units): 0 Call MD if Blood Glucose > : 350 melatonin 5 mg Tablet 5 mg PO BEDTIME glucagon HCl 1 mg Recon Soln 1 mg SUBCUT ONCE PRN (Reason: BG below 60) Rx Instructions: until target blood sugar attained Discontinued amoxicillin 875 mg Tablet 875 mg PO BID Discharge Orders: Discharge Order (Routine); Ordered 08/31/25 Ordered By: Feliciano Camejo Diet: Advance to usual diet Activity on Discharge: As tolerated Stand Alone Forms: Patient Portal Discharge page Print Language: Unable To Collect Care Plan Goals: Continue all meds as outlined on transfer sheet. Health Concerns: Augmentin 875 twice daily for 1 week to complete treatment for UTI Plan of Treatment: Resume care plan as previous be implemented Assessment: See discharge summary
--- NOTE | 2025-08-31 11:11 | MHC.CM.PN ---
Per MD in [facility]OUN[facility], Patient is medically cleared for dc to SNF today. Patient will return to [facility] today at 3PM, via [facility] ([facility] termed 08/28/2025/transport under his Medicare). Per MD, dc coordination should be done with Patient's Mother/HCP/Halie; LOCO spoke with Halie @ [phone], informed her of the dc plan and addressed the IMM with her.
[2025-08-31 11:49] LABS: Glucose, Whole Blood 118 mg/dL (60-115)
--- NOTE | 2025-08-31 11:50 | PC.NURSE ---
Pt required straight cath on the overnight. Pt had not voided this AM. bladder scanned pt for >379mls. MD made aware. dorantes cath reinserted per MD order. + clear yellow urine return. pt tolerated procedure well.
[2025-08-31 12:00] VITALS: BP 140/68; PULSE 82; RESP 16; TEMP 36.4; O2SAT 98
--- NOTE | 2025-09-13 07:32 | P.CDIM_ITS ---
PROVIDER RESPONSE TEXT: To clarify, the appropriate diagnosis supported by the clinical indicators: Acute renal failure (with type, appropriate) on Chronic Kidney Disease (CKD) QUERY TEXT: PHYSICIAN'S DOCUMENTATION REQUEST Date of Query: 08/27/2025 09:59 AM EDT Patient Name: Ryne Duncan Admit Date: 08/23/2025 Dear Feliciano Camejo DO, A review of the medical record indicates additional documentation may be needed. Please review below and update the documentation accordingly. Clinical Indicators: sodium urine 56.4 GILMA likely multifactoral-tubular injury per Nephrology Note 08/26/25 Please clarify which of the following accurately represents the patient's renal status: Acute renal failure Acute renal failure with suspected ATN Acute renal failure with other pathology (medullary, papillary, or cortical necrosis) Acute renal failure (with type, appropriate) on Chronic Kidney Disease (CKD) Acute kidney injury (non-traumatic) CKD, please provide stage ESRD - CKD V now requiring permanent dialysis and/or transplant Other (explain) Clinically unable to determine (explain) Thank you, Ambreen Arciniega RN Use of terms such as suspected, likely, concern for, or probable (associated with a specific diagnosis that is being evaluated, monitored, or treated as if it exists) are acceptable and can be coded in the inpatient setting, when documented at the time of discharge. Please use your independent medical judgment in providing your response. THIS QUERY IS PART OF THE PERMANENT MEDICAL RECORD
== END 2025-08-31 15:43 | disposition skilled nursing facility (03) | DRG 871 ==
LOC: HO.ED 08-23 02:38 → HO.EDOVER 08-23 06:18 → HO.IMC 08-23 15:22
PROVIDERS: Internal Medicine; Admitting Provider Physician Assistant; Emergency Provider Emergency Medicine; PCP Internal Medicine; Visit Provider Hospitalist
DX: A41.9 Sepsis, unspecified organism (principal); J18.9 Pneumonia, unspecified organism; J96.01 Acute respiratory failure with hypoxia; I13.0 Hypertensive heart and chronic kidney disease with heart failure and stage 1 through stage 4 chronic kidney disease, or unspecified chronic kidney disease; N17.9 Acute kidney failure, unspecified; E51.2 Wernicke's encephalopathy; N13.6 Pyonephrosis; E87.0 Hyperosmolality and hypernatremia; I47.20 Ventricular tachycardia, unspecified; E87.21 Acute metabolic acidosis; K52.9 Noninfective gastroenteritis and colitis, unspecified; E86.0 Dehydration; N18.30 Chronic kidney disease, stage 3 unspecified; I48.0 Paroxysmal atrial fibrillation; F10.11 Alcohol abuse, in remission; I50.9 Heart failure, unspecified; E11.22 Type 2 diabetes mellitus with diabetic chronic kidney disease; E87.6 Hypokalemia; E87.5 Hyperkalemia; Z20.822 Contact with and (suspected) exposure to COVID-19; Z79.4 Long term (current) use of insulin; Z79.01 Long term (current) use of anticoagulants; Z79.82 Long term (current) use of aspirin; Z79.899 Other long term (current) drug therapy
CPT/HCPCS: 36415; 71045; 71250; 74176; 80048; 80053; 80076; 81001; 81003; 82272; 82803; 82947; 83605; 83735; 83880; 84443; 84484; 85007; 85025; 85027; 87040; 87077; 87086; 87186; 87205; 87493; 87507; 87637; 93005; 94640; 97162; 99285; J0131; J0456; J0613; J0696; J0737; J1271; J1644; J1836; J2270; J2405; J3480; J7120

== ENCOUNTER → 2025-08-22 21:20 | Outpatient (BNV) | payer OTHER, SELFPAY | PROVIDERS: Admitting Provider Physician Assistant; Emergency Provider Emergency Medicine; PCP Internal Medicine; Visit Provider Internal Medicine Cardiovascular Disease | DX: I49.3 Ventricular premature depolarization (principal); I51.7 Cardiomegaly | CPT/HCPCS: 93010 ==

== ENCOUNTER → 2025-08-22 22:40 | Outpatient (BNV) | payer OTHER, SELFPAY | PROVIDERS: Emergency Provider Emergency Medicine; PCP Internal Medicine; Visit Provider General Practice | DX: R06.02 Shortness of breath (principal) | CPT/HCPCS: 71045 ==

== ENCOUNTER → 2025-08-23 06:15 | Outpatient (BNV) | payer OTHER, SELFPAY | PROVIDERS: Admitting Provider Physician Assistant; Emergency Provider Emergency Medicine; PCP Internal Medicine; Visit Provider Internal Medicine | DX: I47.20 Ventricular tachycardia, unspecified (principal); E87.6 Hypokalemia | CPT/HCPCS: 99223 ==

== ENCOUNTER → 2025-08-23 06:15 | Outpatient (BNV) | payer OTHER, SELFPAY | PROVIDERS: Admitting Provider Physician Assistant; Emergency Provider Emergency Medicine; PCP Internal Medicine; Visit Provider Internal Medicine Critical Care Medicine | DX: K52.9 Noninfective gastroenteritis and colitis, unspecified (principal); N17.9 Acute kidney failure, unspecified; N18.9 Chronic kidney disease, unspecified; E87.5 Hyperkalemia | CPT/HCPCS: 99223 ==

== ENCOUNTER → 2025-08-23 06:15 | Outpatient (BNV) | payer OTHER, SELFPAY | PROVIDERS: Admitting Provider Physician Assistant; Emergency Provider Emergency Medicine; PCP Internal Medicine; Visit Provider Internal Medicine Hypertension Specialist | DX: N17.9 Acute kidney failure, unspecified (principal); N18.9 Chronic kidney disease, unspecified | CPT/HCPCS: 99232 ==

== ENCOUNTER → 2025-08-23 06:15 | Outpatient (BNV) | payer OTHER, SELFPAY | PROVIDERS: Admitting Provider Physician Assistant; Emergency Provider Emergency Medicine; PCP Internal Medicine; Visit Provider Hospitalist | DX: J96.21 Acute and chronic respiratory failure with hypoxia (principal); J18.9 Pneumonia, unspecified organism; N39.0 Urinary tract infection, site not specified; N17.9 Acute kidney failure, unspecified; N18.9 Chronic kidney disease, unspecified | CPT/HCPCS: 99233; 99499 ==

== ENCOUNTER → 2025-08-23 | Outpatient (BNV) | payer OTHER, SELFPAY | PROVIDERS: Emergency Provider Emergency Medicine; PCP Internal Medicine; Visit Provider General Practice | DX: N13.30 Unspecified hydronephrosis (principal); N32.89 Other specified disorders of bladder; R91.8 Other nonspecific abnormal finding of lung field; R09.02 Hypoxemia | CPT/HCPCS: 71250; 74176 ==